=== PATIENT | male | born 1950 | race Hispanic/Latino ===

== ENCOUNTER 2016-06-07 15:55 | Emergency (ER) | payer MEDICARE, OTHER ==
[2016-06-07 15:56] VITALS: BMI 32.1
[2016-06-07 17:47] LABS: BASO % 0.3 % (0.0-2.0); EOS % 0.1 % (0.0-4.0); HEMATOCRIT 42.9 % (35.0-51.0); LYMPH # 0.5 K/uL (1.0-4.3); LYMPH % 8.5 % (20.0-40.0); MEAN CELL VOLUME 86.8 fL (80.0-94.0); MEAN CORPUSCULAR HEMOGLOBIN 29.1 pg (27.0-31.0); MEAN CORPUSCULAR HGB CONC 33.5 g/dL (33.0-37.0); MEAN PLATELET VOLUME 8.6 fL (7.2-11.7); MONO # 0.3 K/uL (0.0-0.8); MONO % 4.9 % (0.0-10.0); PLATELET COUNT 274 K/uL (130-400); RED CELL DISTRIBUTION WIDTH 14.3 % (11.5-14.5); WHITE BLOOD COUNT 6.3 K/uL (4.8-10.8)
[2016-06-07 17:55] LABS: INR 1.2
--- NOTE | 2016-06-07 18:01 | CT ---
PROCEDURE: CT HEAD WITHOUT CONTRAST. HISTORY: dizzy COMPARISON: None available. TECHNIQUE: Axial computed tomography images were obtained through the head/brain without intravenous contrast. Radiation dose: Total exam DLP = 906.0 mGy-cm. This CT exam was performed using one or more of the following dose reduction techniques: Automated exposure control, adjustment of the mA and/or kV according to patient size, and/or use of iterative reconstruction technique. FINDINGS: HEMORRHAGE: No intracranial hemorrhage. BRAIN: No mass effect or edema. No atrophy or chronic microvascular ischemic changes. VENTRICLES: Unremarkable. No hydrocephalus. CALVARIUM: Unremarkable. PARANASAL SINUSES: Unremarkable as visualized. No significant inflammatory changes. MASTOID AIR CELLS: Unremarkable as visualized. No inflammatory changes. OTHER FINDINGS: None. IMPRESSION: No evidence of acute intracranial hemorrhage territorial infarct mass effect or midline shift.
--- NOTE | 2016-06-07 18:23 | RAD ---
HISTORY: productive cough COMPARISON: No prior. TECHNIQUE: Chest PA and lateral FINDINGS: LUNGS: No active pulmonary disease. PLEURA: No significant pleural effusion identified. No pneumothorax apparent. CARDIOVASCULAR: No radiographic findings to suggest acute or significant cardiovascular disease. OSSEOUS STRUCTURES: No significant abnormalities. VISUALIZED UPPER ABDOMEN: Normal. OTHER FINDINGS: None. IMPRESSION: No active disease.
[2016-06-07 18:26] LABS: CHLORIDE 101 mmol/L (98-107); POTASSIUM 4.1 mmol/L (3.6-5.2); SODIUM 137 mmol/L (132-148)
[2016-06-07 18:28] LABS: ALB/GLOB RATIO 1.1 (1.0-2.1); ALKALINE PHOSPHATASE 49 U/L (38-126); AST/SGOT 44 U/L (17-59); BLOOD UREA NITROGEN 12 mg/dL (9-20); CARBON DIOXIDE 24 mmol/L (22-30); GFR AFRICAN-AMERICAN > 60; TOTAL PROTEIN 7.7 g/dL (6.3-8.3)
[2016-06-07 18:29] LABS: ALT/SGPT 35 U/L (21-72); GLUCOSE,RANDOM 105 mg/dL (75-110)
--- NOTE | 2016-06-07 18:29 | C.PDOC ---
History Of Present Illness <Cami Zhao - Last Filed: 06/07/16 19:11> <Stanley Garcia - Last Filed: 06/07/16 19:23> 66-year-old male, presents to the emergency department with complaints of headache, cough and nasal congestion x2 days. Last night, patient had an episode of feeling "unsteady on feet." States he was unable to sleep, and was concerned, resulting in him coming to the ED for evaluation. Denies changes in vision, nausea/vomiting, change in speech, or any other associated symptoms. No other complaints at this time. (Cami Zhao) History Per: Patient History/Exam Limitations: no limitations <Cami Zhao - Last Filed: 06/07/16 19:11> <Stanley Garcia - Last Filed: 06/07/16 19:23> Time Seen by Provider: 06/07/16 16:57 Chief Complaint (Nursing): Headache Past Medical History Reviewed: Historical Data, Nursing Documentation, Vital Signs - Medical History PMH: Denies: Chronic Kidney Disease Surgical History: Tonsillectomy Family History: States: Unknown Family Hx - Social History Hx Alcohol Use: No Hx Substance Use: No - Immunization History Hx Tetanus Toxoid Vaccination: Yes Hx Influenza Vaccination: Yes Hx Pneumococcal Vaccination: Yes <Cami Zhao - Last Filed: 06/07/16 19:11> Review Of Systems Except As Marked, All Systems Reviewed And Found Negative. Constitutional: Negative for: Fever, Chills ENT: Positive for: Nose Congestion Respiratory: Positive for: Cough, Sputum. Negative for: Shortness of Breath Gastrointestinal: Negative for: Vomiting Musculoskeletal: Negative for: Back Pain Skin: Negative for: Rash Neurological: Positive for: Headache, Dizziness. Negative for: Weakness, Numbness <Cami Zhao - Last Filed: 06/07/16 19:11> Physical Exam - Physical Exam Appears: Non-toxic, No Acute Distress Skin: Warm, Dry, No Rash Head: Atraumatic, Normacephalic Eye(s): bilateral: Normal Inspection, PERRL, EOMI Nose: Normal Throat: Normal Neck: Normal Cardiovascular: Rhythm Regular Respiratory: Normal Breath Sounds Gastrointestinal/Abdominal: Normal Exam Back: Normal Inspection Extremity: Normal ROM <Cami Zhao - Last Filed: 06/07/16 19:11> ED Course And Treatment - Laboratory Results Result Diagrams: 06/07/16 17:38 06/07/16 17:38 O2 Sat by Pulse Oximetry: 95 - Radiology CXR: Viewed By Me, Read By Radiologist CXR Interpretation: Yes: No Acute Disease - CT Scan/US CT HEAD Other Rad Studies (CT/US): Read By Radiologist, Radiology Report Reviewed CT/US Interpretation: Accession No. : [id number]. Patient Name / ID : SUSIE MEJIA / [id number]. Exam Date : 06/07/2016 17:44:15 ( Approved ). Study Comment : Sex / Age : M / 66Y. Creator : Alo August. Dictator : Alo August. [id number] Administrator : Hat Forming Machine Feeder : Alo August. Approver2 : Report Date : 06/07/2016 17:59:53. My Comment : . PROCEDURE: CT HEAD WITHOUT CONTRAST. HISTORY: dizzy. COMPARISON: None available. TECHNIQUE: Axial computed tomography images were obtained through the head/brain without intravenous contrast. Radiation dose: Total exam DLP = 906.0 mGy-cm. This CT exam was performed using one or more of the following dose reduction techniques : Automated exposure control, adjustment of the mA and/or kV according to patient size, and/or use of iterative reconstruction technique. FINDINGS: HEMORRHAGE: No intracranial hemorrhage. BRAIN: No mass effect or edema. No atrophy or chronic microvascular ischemic changes. VENTRICLES: Unremarkable. No hydrocephalus. CALVARIUM: Unremarkable. PARANASAL SINUSES: Unremarkable as visualized. No significant inflammatory changes. MASTOID AIR CELLS: Unremarkable as visualized. No inflammatory changes. OTHER FINDINGS: None. IMPRESSION: No evidence of acute intracranial hemorrhage territorial infarct mass effect or midline shift. <Cami Zhao - Last Filed: 06/07/16 19:11> - Laboratory Results Result Diagrams: 06/07/16 17:38 06/07/16 17:38 ECG: Interpreted By Me, Viewed By Me ECG Rhythm: Sinus Rhythm (103), R BBB, Nonspecific Changes Pulse Ox Interpretation: Normal - Radiology CXR: Interpreted by Me, Viewed By Me CXR Interpretation: Yes: Other (? rll infiltrate). No: Fracture, Pnemothorax <Stanley Garcia - Last Filed: 06/07/16 19:23> Disposition - Disposition Disposition Time: 19:11 <Cami Zhao - Last Filed: 06/07/16 19:11> <Stanley Garcia - Last Filed: 06/07/16 19:23> - Disposition Condition: FAIR - Clinical Impression Clinical Impression: Headache, Dizziness - Scribe Statement The provider has reviewed the documentation as recorded by the Scribe <Cami Zhao - Last Filed: 06/07/16 19:11> <Stanley Garcia - Last Filed: 06/07/16 19:23> - Scribe Statement Barron Zambrano All medical record entries made by the Scribe were at my direction and personally dictated by me. I have reviewed the chart and agree that the record accurately reflects my personal performance of the history, physical exam, medical decision making, and the department course for this patient. I have also personally directed, reviewed, and agree with the discharge instructions and disposition. (Cami Zhao) Physician Patient Turnover Patient Signed Over To: Stanley Garcia Handoff Comments: Troponin, dspo <Cami Zhao - Last Filed: 06/07/16 19:11>
[2016-06-07 19:37] LABS: NEUTROPHIL 85 % (50-75); TOTAL CELLS COUNTED 100
[2016-06-07 19:45] LABS: URINE BACTERIA RARE (<OCC); URINE BILIRUBIN NEGATIVE (NEGATIVE); URINE BLOOD NEGATIVE (NEGATIVE); URINE GLUCOSE (UA) NORMAL (Normal); URINE KETONE NEGATIVE (NEGATIVE); URINE LEUKOCYTE ESTERASE NEG Leu/uL (Negative); URINE PROTEIN 1+ mg/dL (NEGATIVE); URINE UROBILINOGEN NORMAL mg/dL (0.2-1.0); WBC URINE 5 /hpf (0-5)
[2016-06-07 19:46] LABS: URINE COLOR YELLOW (YELLOW)
[2016-06-07 19:47] LABS: RBC URINE 3 /hpf (0-3)
[2016-06-07 20:46] VITALS: BP 132/84; PULSE 82; RESP 20; TEMP 98; O2SAT 98
--- NOTE | 2016-06-12 09:00 | CARD ---
APPROVED REPORT EKG Measurement Heart [id number] <Conclusion> Sinus tachycardiA Borderline ECG
== END 2016-06-07 20:45 | disposition home or self-care (01) ==
LOC: C.ER 15:55
DX: R51 Headache (principal); R42 Dizziness and giddiness
CPT/HCPCS: 70450; 71020; 80053; 81001; 82550; 82553; 84484; 85025; 85610; 85730; 96374; 96375; 99285; J1885; J2405

== ENCOUNTER 2016-09-14 19:30 | Emergency (ER) | payer MEDICARE ==
[2016-09-14 19:30] VITALS: BMI 32.1
--- NOTE | 2016-09-14 20:08 | C.PDOC ---
History Of Present Illness 66 year old male presents to the ED with complaints of "room-spinning" dizziness with some nausea and vomiting for the past few days that has been worsening today. Patient states upon arrival to ED he is feeling better. Patient denies headache, chest pain, or other complaints at this time. Chief Complaint (Nursing): Dizziness/Lightheaded History Per: Patient History/Exam Limitations: no limitations Onset/Duration Of Symptoms: Days, Worse Since (earlier today ) Current Symptoms Are (Timing): Better Fall Associated With With Symptoms: No Recent travel outside of the [place]: No Past Medical History Reviewed: Historical Data, Nursing Documentation, Vital Signs Vital Signs: Last Vital Signs Temp 98.2 F 09/14/16 19:49 Pulse 96 H 09/14/16 23:36 Resp 17 09/14/16 23:36 BP 122/69 09/14/16 23:36 Pulse Ox 95 09/14/16 23:36 Surgical History: Tonsillectomy - [facility] Procedures ENDOSC POLYPECTOMY OF LG INTEST (11/03/14) Family History: States: Unknown Family Hx - Social History Hx Alcohol Use: No Hx Substance Use: No - Immunization History Hx Tetanus Toxoid Vaccination: Yes Hx Influenza Vaccination: Yes Hx Pneumococcal Vaccination: Yes Review Of Systems Constitutional: Negative for: Fever, Chills Cardiovascular: Negative for: Chest Pain Respiratory: Negative for: Shortness of Breath Gastrointestinal: Positive for: Nausea, Vomiting. Negative for: Abdominal Pain , Diarrhea Neurological: Positive for: Dizziness. Negative for: Headache Physical Exam - Physical Exam Appears: Non-toxic, No Acute Distress Skin: Warm, Dry Head: Atraumatic Eye(s): bilateral: Normal Inspection, PERRL, EOMI Oral Mucosa: Moist Neck: Supple Cardiovascular: Rhythm Regular Respiratory: Normal Breath Sounds, No Rhonchi, No Wheezing Gastrointestinal/Abdominal: Soft, No Tenderness, No Distention, No Guarding, No Rebound Extremity: Normal ROM, No Tenderness Neurological/Psych: Oriented x3, Normal Speech, Normal Cognition, Normal Cranial Nerves, Normal Motor, Normal Sensation ED Course And Treatment - Laboratory Results Result Diagrams: 09/14/16 19:59 09/14/16 19:59 ECG: Interpreted By Me, Viewed By Me ECG Rhythm: Sinus Rhythm ECG Interpretation: No Acute Changes Interpretation Of ECG: NSR, possible LVH, borderline tracings. Rate From EC O2 Sat by Pulse Oximetry: 98 (room air ) Pulse Ox Interpretation: Normal Disposition Counseled Patient/Family Regarding: Diagnosis - Disposition Referrals: [facility] [Outside] Disposition: HOME/ ROUTINE Disposition Time: 00:20 Condition: STABLE Prescriptions: Meclizine [Meclizine*] 25 mg PO Q6 #30 tab Instructions: Vertigo (ED) Forms: [facility] (Monegasque) - POA Present On Arrival: None - Clinical Impression Clinical Impression: Vertigo - Scribe Statement The provider has reviewed the documentation as recorded by the Scribe Hetal Herring All medical record entries made by the Roneyibender were at my direction and personally dictated by me. I have reviewed the chart and agree that the record accurately reflects my personal performance of the history, physical exam, medical decision making, and the department course for this patient. I have also personally directed, reviewed, and agree with the discharge instructions and disposition.
[2016-09-14 20:28] LABS: BASO % 0.4 % (0.0-2.0); EOS # 0.2 K/uL (0.0-0.7); EOS % 1.4 % (0.0-4.0); HEMOGLOBIN 11.9 g/dL (12.0-18.0); LYMPH # 1.8 K/uL (1.0-4.3); LYMPH % 17.1 % (20.0-40.0); MEAN CELL VOLUME 82.8 fL (80.0-94.0); MEAN CORPUSCULAR HEMOGLOBIN 27.8 pg (27.0-31.0); MEAN CORPUSCULAR HGB CONC 33.5 g/dL (33.0-37.0); MONO # 0.9 K/uL (0.0-0.8); MONO % 7.9 % (0.0-10.0); NEUT # 7.9 K/uL (1.8-7.0); NEUT % 73.2 % (50.0-75.0); RBC 4.3 Mil/uL (4.40-5.90); RED CELL DISTRIBUTION WIDTH 15.3 % (11.5-14.5); WHITE BLOOD COUNT 10.7 K/uL (4.8-10.8)
[2016-09-14 20:38] LABS: ALBUMIN 3.8 g/dL (3.5-5.0)
[2016-09-14 20:41] LABS: ALB/GLOB RATIO 0.9 (1.0-2.1); AST/SGOT 38 U/L (17-59); BLOOD UREA NITROGEN 17 mg/dL (9-20); GFR AFRICAN-AMERICAN > 60; GFR NON-AFRICAN AMERICAN > 60
[2016-09-14 20:42] LABS: ALT/SGPT 36 U/L (21-72)
--- NOTE | 2016-09-15 00:06 | CT ---
EXAM: CT Head Without Intravenous Contrast CLINICAL HISTORY: 66 years old, male; Pain; Headache TECHNIQUE: Axial computed tomography images of the head/brain without intravenous contrast. This CT exam was performed using one or more of the following dose reduction techniques: automated exposure control, adjustment of the mA and/or kV according to patient size, and/or use of iterative reconstruction technique. COMPARISON: No relevant prior studies available. FINDINGS: Brain: [id number] atrophy. No intracranial hemorrhage. No mass. Minimal decreased attenuation within periventricular white matter. No definite edema. Ventricles: No hydrocephalus. Bones/joints: No acute fracture. Soft tissues: Unremarkable. Sinuses: No acute sinusitis. Mastoid air cells: No mastoid effusion. Orbits: Unremarkable as visualized. IMPRESSION: 1. Nonspecific white matter changes. Acute infarction may be CT occult within first 24 hours. If a focal deficit persists, consider followup CT or MRI for further evaluation. 2. Incidental/non-acute findings are described above.
[2016-09-15 00:08] VITALS: PULSE 96
[2016-09-15 00:28] VITALS: BP 102/52; RESP 13; TEMP 98.1; O2SAT 95
== END 2016-09-15 00:33 | disposition home or self-care (01) ==
LOC: C.ER 19:30
DX: R42 Dizziness and giddiness (principal)

== ENCOUNTER 2016-10-04 02:41 | Emergency (ER) | payer MEDICARE ==
[2016-10-04 02:42] VITALS: BMI 32.1
[2016-10-04 03:09] VITALS: O2SAT 97
[2016-10-04] MEDS ORDERED: Sodium Chloride 0.9% 1,000 ML IV ONE (03:10)
[2016-10-04 03:43] LABS: BASO # 0.1 K/uL (0.0-0.2); BASO % 0.8 % (0.0-2.0); EOS % 0.4 % (0.0-4.0); HEMATOCRIT 31.7 % (35.0-51.0); LYMPH # 1.3 K/uL (1.0-4.3); LYMPH % 11.6 % (20.0-40.0); MEAN CORPUSCULAR HEMOGLOBIN 26.5 pg (27.0-31.0); MEAN CORPUSCULAR HGB CONC 32.8 g/dL (33.0-37.0); MEAN PLATELET VOLUME 8.4 fL (7.2-11.7); MONO # 0.7 K/uL (0.0-0.8); MONO % 6.8 % (0.0-10.0); RED CELL DISTRIBUTION WIDTH 16.1 % (11.5-14.5)
[2016-10-04 03:50] LABS: CHLORIDE 103 mmol/L (98-107)
[2016-10-04 03:51] LABS: SODIUM 136 mmol/L (132-148)
[2016-10-04 03:53] LABS: ALB/GLOB RATIO 0.8 (1.0-2.1); AMYLASE 52 U/L (30-110); AST/SGOT 26 U/L (17-59); BILIRUBIN,TOTAL 0.9 mg/dL (0.2-1.3); BLOOD UREA NITROGEN 15 mg/dL (9-20); CARBON DIOXIDE 21 mmol/L (22-30); GFR AFRICAN-AMERICAN > 60
[2016-10-04 03:54] LABS: ALCOHOL SERUM < 10 mg/dl (0-10); ALKALINE PHOSPHATASE 53 U/L (38-126); ALT/SGPT 34 U/L (21-72); CALCIUM 8.4 mg/dl (8.6-10.4); GLUCOSE,RANDOM 98 mg/dL (75-110)
[2016-10-04] MEDS ORDERED: Iohexol 350mg/ml 100 ML ONE (04:09)
--- NOTE | 2016-10-04 05:29 | CT ---
EXAM: CT Abdomen and Pelvis With Intravenous Contrast EXAM DATE/TIME: 10/04/2016 3:11 AM CLINICAL HISTORY: 66 years old, male; Pain; Abdominal pain TECHNIQUE: Axial computed tomography images of the abdomen and pelvis with intravenous contrast. All CT scans at this facility use one or more dose reduction techniques, viz.: automated exposure control; ma/kV adjustment per patient size (including targeted exams where dose is matched to indication; i.e. head); or iterative reconstruction technique. Coronal and sagittal reformatted images were created and reviewed. CONTRAST: 100 mL of [id number] administered intravenously. COMPARISON: No relevant prior studies available. FINDINGS: There are multiple small round hypoattenuating hepatic and renal lesions some of which represent cysts and some of which are too small to accurately characterize. Trace bilateral perinephric stranding The spleen is prominent. The pancreas is normal. Probable small amount of sludge or stones layering in the gallbladder. Sigmoid diverticulosis. Large amount of stool within the proximal right colon. A normal appendix is identified coronal images 44 - 62, axial image 136. There is a small umbilical fat hernia. Minimal bibasilar atelectasis. IMPRESSION: Large amount of stool in proximal right colon. Prominent spleen. Possible small amount of sludge or stones in the gallbladder.
--- NOTE | 2016-10-04 05:33 | C.PDOC ---
History Of Present Illness 66 yo male c/o abdominal pain for 2 days. "it might be gas". Notes that when he moves pain increases or at night. Not changed with food. (+) Notes normal BM today. No n/v diarhhea. No fever. No symptoms. Time Seen by Provider: 10/04/16 03:05 Chief Complaint (Nursing): Abdominal Pain History Per: Patient History/Exam Limitations: no limitations Onset/Duration Of Symptoms: Days Current Symptoms Are (Timing): Still Present Location Of Pain/Discomfort: Diffuse Past Medical History Vital Signs: Last Vital Signs Temp 98.6 F 10/04/16 04:50 Pulse 83 10/04/16 04:50 Resp 16 10/04/16 04:50 BP 105/41 L 10/04/16 04:50 Pulse Ox 97 10/04/16 04:50 - Medical History PMH: Denies: Chronic Kidney Disease Surgical History: Tonsillectomy - [facility] Procedures ENDOSC POLYPECTOMY OF LG INTEST (11/03/14) Family History: States: Unknown Family Hx - Social History Hx Alcohol Use: No Hx Substance Use: No - Immunization History Hx Tetanus Toxoid Vaccination: Yes Hx Influenza Vaccination: Yes Hx Pneumococcal Vaccination: Yes Review Of Systems Except As Marked, All Systems Reviewed And Found Negative. Gastrointestinal: Positive for: Abdominal Pain Physical Exam - Physical Exam Appears: Well, Non-toxic, No Acute Distress, Unkempt Skin: Normal Color, Warm, Dry Head: Atraumatic, Normacephalic Eye(s): bilateral: Normal Inspection, EOMI Nose: Normal Oral Mucosa: Moist Neck: Normal, Normal ROM, Supple Chest: Symmetrical Cardiovascular: Rhythm Regular Respiratory: Normal Breath Sounds Gastrointestinal/Abdominal: Soft, Tenderness (diffuse) Back: Normal Inspection, No CVA Tenderness, No Vertebral Tenderness Extremity: Normal ROM Neurological/Psych: Oriented x3, Normal Speech, Normal Motor, Normal Sensation ED Course And Treatment - Laboratory Results Result Diagrams: 10/04/16 03:40 10/04/16 03:40 O2 Sat by Pulse Oximetry: 97 - CT Scan/US ABd pelvis Other Rad Studies (CT/US): Read By Radiologist, Radiology Report Reviewed CT/US Interpretation: EXAM: CT Abdomen and Pelvis With Intravenous Contrast. EXAM DATE/TIME: 10/04/2016 3:11 AM. CLINICAL HISTORY: 66 years old, male; Pain ; Abdominal pain. TECHNIQUE: Axial computed tomography images of the abdomen and pelvis with intravenous contrast. All CT. scans at this facility use one or more dose reduction techniques, viz.: automated exposure control;. ma/kV adjustment per patient size (including targeted exams where dose is matched to indication; i.e. head); or iterative reconstruction technique. Coronal and sagittal reformatted images were created and reviewed. CONTRAST: 100 mL of [id number] administered intravenously. COMPARISON: No relevant prior studies available. FINDINGS: There are multiple small round hypoattenuating hepatic and renal lesions some of which represent. cysts and some of which are too small to accurately characterize. Trace bilateral perinephric stranding. The spleen is prominent. The pancreas is normal. Probable small amount of sludge or stones layering in the gallbladder. Sigmoid diverticulosis. Large amount of stool within the proximal right colon. A normal appendix is identified coronal images 44 - 62, axial image 136. There is a small umbilical fat hernia. Minimal bibasilar atelectasis. IMPRESSION: Large amount of stool in proximal right colon. Prominent spleen. Possible small amount of sludge or stones in the gallbladder Progress Note: Toradol and pepcid ordered. On re-evaluation, patient is resting comfortably, abdomen remains soft, and patient is tolerating PO. Patient feels comfortable going home Disposition - Disposition Disposition: HOME/ ROUTINE Disposition Time: 05:35 Condition: STABLE Additional Instructions: Follow up with your PMD in 1-2 days. Return to ER if symptoms persist or worsen. Prescriptions: Polyethylene Glycol 3350 [Miralax] 17 gm PO DAILY #85 gm Simethicone [Mylicon Chew Tab] 80 mg PO TID PRN #10 ctb PRN Reason: Gi Distress Instructions: Acute Abdominal Pain (ED) Forms: [employer] (Hungarian) - Clinical Impression Clinical Impression: Abdominal pain, Constipation
[2016-10-04 05:52] VITALS: BP 132/74; PULSE 78; RESP 20; TEMP 98.2
== END 2016-10-04 05:50 | disposition home or self-care (01) ==
LOC: C.ER 02:41
DX: K59.00 Constipation, unspecified (principal)
CPT/HCPCS: 74177; 80053; 82150; 83690; 85025; 96374; 96375; 99285; G0480; J1885; J7040; Q9967

== ENCOUNTER 2016-10-05 07:45 | Emergency (ER) | payer MEDICARE ==
[2016-10-05 07:55] VITALS: BMI 29.9
[2016-10-05 07:58] VITALS: RESP 18
[2016-10-05] MEDS ORDERED: Lidocaine 5% Patch TD STA (08:49)
[2016-10-05] MEDS ORDERED: Lidocaine 5% Patch TD ONE (09:00)
--- NOTE | 2016-10-05 09:45 | C.PDOC ---
History Of Present Illness 66 y/o M p/w back pain x 1 week. Patient was in this ED last night with abdominal pain and this same back pain. He underwent CT and was discharged with constipation. He took his prescribed medication and states that his abdominal pain has resolved. He states that his back pain is worse, starts at the L flank and wraps around the L to the R flank. Pain is constant, worse with movement and position, sharp. He denies trauma or injury. Denies numbness, motor weakness , urinary or bowel incontinence or retention. Denies dysuria. Time Seen by Provider: 10/05/16 08:30 Chief Complaint (Nursing): Back Pain Past Medical History Vital Signs: Last Vital Signs Temp 97.6 F 10/05/16 07:55 Pulse 99 H 10/05/16 07:55 Resp 18 10/05/16 07:55 BP 139/66 10/05/16 07:55 Pulse Ox 97 10/05/16 10:27 - Medical History PMH: Denies: Chronic Kidney Disease Surgical History: Tonsillectomy - [facility] Procedures ENDOSC POLYPECTOMY OF LG INTEST (11/03/14) Family History: States: Unknown Family Hx - Social History Hx Alcohol Use: No Hx Substance Use: No - Immunization History Hx Tetanus Toxoid Vaccination: Yes Hx Influenza Vaccination: Yes Hx Pneumococcal Vaccination: Yes Review Of Systems Except As Marked, All Systems Reviewed And Found Negative. Constitutional: Negative for: Fever Cardiovascular: Negative for: Chest Pain Physical Exam - Physical Exam Additional Physical Exam Comments: Constitutional: No acute distress. Ambulates with cane. Head: Normocephalic. Atraumatic. Eyes: PERRL. ENT: Moist mucous membranes. Neck: Supple. Cardiovascular: Regular rate. Radial pulse 2+ bilaterally. Chest: No tenderness. Respiratory: Clear to auscultation bilaterally. GI: Soft. Nontender. Nondistended. Back: No midline tenderness. No CVA tenderness. Came to ED with back brace on. Musculoskeletal: No tenderness or swelling of extremities. Skin: No rash. Neurologic: Alert, no focal deficit. Sensation to light touch intact in bilateral legs and saddle area. Motor intact bilaterally. ED Course And Treatment O2 Sat by Pulse Oximetry: 97 Medical Decision Making Medical Decision Making: Had in house radiologist review CT from last night. No obvious disc herniation and no fractures. +Degenerative disc disease in lower spine. Will treat patient with Lidocaine patch and Flexeril, patient took Aleve at home. Will send urine to rule out infection. Otherwise, supportive care, f/u PMD , no indication for further imaging at this time. Disposition - Disposition Referrals: Lori Ovalles MD [Medical Doctor] - Disposition: HOME/ ROUTINE Disposition Time: 11:05 Condition: STABLE Prescriptions: Cyclobenzaprine [Cyclobenzaprine HCl] 10 mg PO Q8H #12 tab Lidocaine 5% [Lidoderm] 1 patch TD ONCE #5 patch Instructions: Back Pain (ED) Forms: [facility] (Uzbek) - Clinical Impression Clinical Impression: Low back pain
[2016-10-05 11:00] LABS: RBC URINE 2 /hpf (0-3); URINE BILIRUBIN NEGATIVE (NEGATIVE); URINE BLOOD NEGATIVE (NEGATIVE); URINE COLOR Amber (YELLOW); URINE GLUCOSE (UA) NORMAL (Normal); URINE KETONE 2+ mg/dL (NEGATIVE); URINE LEUKOCYTE ESTERASE NEG Leu/uL (Negative); URINE PROTEIN 1+ mg/dL (NEGATIVE); URINE UROBILINOGEN NORMAL mg/dL (0.2-1.0); WBC URINE 2 /hpf (0-5)
[2016-10-05 11:16] VITALS: BP 115/56; PULSE 88; TEMP 98.4; O2SAT 98
== END 2016-10-05 11:17 | disposition home or self-care (01) ==
LOC: C.ER 07:45
DX: M54.5 Low back pain (principal)

== ENCOUNTER 2016-10-10 07:59 | Inpatient (IN) | payer MEDICARE ==
[2016-10-10 08:22] VITALS: BMI 28.1
[2016-10-10] MEDS ORDERED: Sodium Chloride 0.9% 500 ML IV ONE ×2 (08:23→09:08)
--- NOTE | 2016-10-10 08:27 | C.PDOC ---
History Of Present Illness Patient is a 66 y/o M presenting with complaint of "being sick." When pressed patient reports that he feels lightheadedness that started this morning. He is also complaining of some LLQ pain. He reports that he feels confused but admits that he is AAOx3. He denies fever, vomiting/nausea, constipation/ diarrhea, chest pain, shortness of breath, headache or trauma. PMD: Dr. Ovalles Time Seen by Provider: 10/10/16 08:04 Chief Complaint (Nursing): Male Genitourinary Past Medical History Vital Signs: Last Vital Signs Temp 97.9 F 10/10/16 08:02 Pulse 99 H 10/10/16 13:46 Resp 20 10/10/16 13:46 BP 130/63 10/10/16 13:46 Pulse Ox 100 10/10/16 13:46 - Medical History PMH: Denies: Chronic Kidney Disease Surgical History: Tonsillectomy - [facility] Procedures ENDOSC POLYPECTOMY OF LG INTEST (11/03/14) Family History: States: Unknown Family Hx - Social History Hx Alcohol Use: No Hx Substance Use: No - Immunization History Hx Tetanus Toxoid Vaccination: Yes Hx Influenza Vaccination: Yes Hx Pneumococcal Vaccination: Yes Review Of Systems Constitutional: Positive for: Malaise. Negative for: Fever, Chills Cardiovascular: Positive for: Light Headedness. Negative for: Chest Pain, Palpitations, Orthopnea Respiratory: Negative for: Cough, Shortness of Breath, SOB with Excertion, Wheezing Gastrointestinal: Positive for: Abdominal Pain (LLQ). Negative for: Nausea, Vomiting, Diarrhea, Constipation Genitourinary: Negative for: Dysuria, Frequency, Incontinence Musculoskeletal: Negative for: Neck Pain Skin: Negative for: Rash Neurological: Positive for: Confusion, Dizziness. Negative for: Weakness, Numbness, Incoordination, Change in Speech, Altered Mental Status, Headache Physical Exam - Physical Exam Appears: Well, No Acute Distress (pale) Skin: Normal Color, Warm, Dry Head: Atraumatic, Normacephalic Eye(s): bilateral: Normal Inspection, PERRL, EOMI Chest: Symmetrical Cardiovascular: Rhythm Regular Respiratory: Normal Breath Sounds Gastrointestinal/Abdominal: Soft, Tenderness (LLQ), No Distention Back: Normal Inspection Extremity: Normal ROM Neurological/Psych: Oriented x3, Normal Cranial Nerves, Normal Motor, Normal Sensation Gait: Steady ED Course And Treatment - Laboratory Results Result Diagrams: 10/10/16 08:51 10/10/16 08:51 O2 Sat by Pulse Oximetry: 95 - Other Rad CXR X-Ray: Viewed By Me, Read By Radiologist Interpretation: HISTORY: lightheaded. COMPARISON: 06/07/2016. FINDINGS: LUNGS: No active pulmonary disease. PLEURA: No significant pleural effusion identified, no pneumothorax apparent. CARDIOVASCULAR: Normal. OSSEOUS STRUCTURES: No significant abnormalities. VISUALIZED UPPER ABDOMEN: Normal. OTHER FINDINGS: None. IMPRESSION: No active disease. - CT Scan/US CT - Head Other Rad Studies (CT/US): Read By Radiologist, Radiology Report Reviewed CT/US Interpretation: PROCEDURE: CT HEAD WITHOUT CONTRAST. HISTORY: confusion. COMPARISON: 09/14/2016. TECHNIQUE: Axial computed tomography images were obtained through the head/brain without intravenous contrast. Radiation dose: Total exam DLP = 89.88 mGy-cm. This CT exam was performed using one or more of the following dose reduction techniques: Automated exposure control, adjustment of the mA and/or kV according to patient size, and/ or use of iterative reconstruction technique. FINDINGS: HEMORRHAGE: No intracranial hemorrhage. BRAIN: No mass effect or edema. Mild diffuse age- appropriate cerebral atrophy. Mild periventricular white matter lucency consistent with chronic microvascular ischemic change. VENTRICLES: Unremarkable. No hydrocephalus. CALVARIUM: Unremarkable. PARANASAL SINUSES: Unremarkable as visualized. No significant inflammatory changes. MASTOID AIR CELLS: Unremarkable as visualized. No inflammatory changes. OTHER FINDINGS: None. IMPRESSION: No intracranial mass, hemorrhage or evidence of acute infarct. Age related atrophy and chronic white matter ischemic change. No interval change compared to 09/14/2016. CT Abdomen and Pelvis with contrast Other Rad Studies (CT/US): Read By Radiologist, Radiology Report Reviewed CT/US Interpretation: PROCEDURE: CT Abdomen and Pelvis with contrast. HISTORY : LLQ pain. COMPARISON: CT of the abdomen and pelvis with IV contrast performed 10/04/16. TECHNIQUE: Contrast dose: 100 cc Visipaque 320. Radiation dose: Total exam DLP = 731.55 mGy-cm. This CT exam was performed using one or more of the following dose reduction techniques: Automated exposure control, adjustment of the mA and/or kV according to patient size, and/or use of iterative reconstruction technique. FINDINGS: LOWER THORAX: Mild bibasilar atelectasis. No visible pleural effusion or pneumothorax. Small hiatal hernia/ distal esophageal wall thickening. LIVER: Multiple round hypo attenuating hepatic lesions several of which appear consistent with cysts and others which are too small to characterize. GALLBLADDER AND BILE DUCTS: Sludge or gallstones within the gallbladder. PANCREAS: Unremarkable. SPLEEN: Splenomegaly. ADRENALS: Unremarkable. KIDNEYS AND URETERS: 2 hypo attenuating right renal lesions, possibly cysts. No hydronephrosis. No obstructing calculus. Bilateral kidneys enhance symmetrically. VASCULATURE: No aortic aneurysm. BOWEL: Stomach is nondistended. Lack of oral contrast limits evaluation for bowel pathology. Bowel loops appear within normal limits of caliber without evidence of obstruction. Diverticulosis without CT evidence of acute diverticulitis. APPENDIX: The appendix appears within normal limits of caliber. No secondary signs of acute appendicitis. PERITONEUM: No significant free fluid. No definite free air. LYMPH NODES: No bulky adenopathy identified. BLADDER: Unremarkable. REPRODUCTIVE: The prostate gland measures approximately 4.2 x 5.1 cm. BONES: Mild degenerative changes. OTHER FINDINGS: Interval development of 1.5 x 1.6 cm enhancing focus within the mid abdomen (series 3, image 113) ; surrounding inflammatory changes are noted. This appears to communicate with an arcade branch of the SMA. Finding suspected to reflect mycotic aneurysm. Enlarged enhancing lymph node cannot be entirely excluded however is considered less likely. Tiny adjacent less hyperdense lymph nodes are evident. IMPRESSION: Interval development of 1.5 x 1.6 cm enhancing focus within the mid abdomen; surrounding inflammatory changes are noted. This appears to communicate with an arcade branch of the SMA. Finding suspected to reflect mycotic aneurysm. Enlarged enhancing lymph node cannot be entirely excluded however is considered less likely. Tiny adjacent less hyperdense lymph nodes are evident. Correlate clinically. Enlarged prostate gland. Recommend correlation with PSA. Diverticulosis without CT evidence of acute diverticulitis. Probable hepatic and right renal cysts. Additional too small to characterize hepatic and renal lesions. Sludge or gallstones within the gallbladder. Additional findings as above. Emergent findings discussed with Dr. Oliver on 10/10/16 at 1235pm. Medical Decision Making Medical Decision Making: [id number]:113. EKG shows sinus tachycardia at 116bpm with non-specific ST changes. CT head "No intracranial mass, hemorrhage or evidence of acute infarct. Age related atrophy and chronic white matter ischemic change. No interval change compared to 09/14/2016. Cxray negative Labs show mildly elevated wbc. Trop x 1 negative. Electrolytes grossly normal. Vitals improving after IVF CT shows "Interval development of 1.5 x 1.6 cm enhancing focus within the mid abdomen; surrounding inflammatory changes are noted. This appears to communicate with an arcade branch of the SMA. Finding suspected to reflect mycotic aneurysm. Enlarged enhancing lymph node cannot be entirely excluded however is considered less likely. Tiny adjacent less hyperdense lymph nodes are evident. Correlate clinically. Enlarged prostate gland. Recommend correlation with PSA. Diverticulosis without CT evidence of acute diverticulitis. Probable hepatic and right renal cysts. Additional too small to characterize hepatic and renal lesions. Sludge or gallstones within the gallbladder." Broad spectrum antibiotics ordered and blood cultures. Pain medication ordered. Dr. Farias on vascular consult. Admitted to Dr. Dloan Disposition - Disposition Disposition: HOSPITALIZED Disposition Time: 12:51 Condition: FAIR - Clinical Impression Clinical Impression: Mycotic aneurysm
[2016-10-10 09:00] LABS: BASO # 0.1 K/uL (0.0-0.2); BASO % 0.7 % (0.0-2.0); EOS # 0.1 K/uL (0.0-0.7); EOS % 0.9 % (0.0-4.0); HEMATOCRIT 37.6 % (35.0-51.0); LYMPH # 1.2 K/uL (1.0-4.3); LYMPH % 9.3 % (20.0-40.0); MEAN CELL VOLUME 80.6 fL (80.0-94.0); MEAN CORPUSCULAR HEMOGLOBIN 26.2 pg (27.0-31.0); MEAN CORPUSCULAR HGB CONC 32.5 g/dL (33.0-37.0); MEAN PLATELET VOLUME 8.6 fL (7.2-11.7); MONO # 0.5 K/uL (0.0-0.8); MONO % 3.9 % (0.0-10.0); PLATELET COUNT 409 K/uL (130-400); RED CELL DISTRIBUTION WIDTH 15.4 % (11.5-14.5); WHITE BLOOD COUNT 13.2 K/uL (4.8-10.8)
[2016-10-10 09:01] LABS: VENOUS BLOOD GAS BASE EXCESS -0.3 mmol/L (0.0-2.0); VENOUS BLOOD GAS PCO2 30 mmHg (40-60); VENOUS BLOOD PH 7.48 (7.32-7.43)
[2016-10-10 09:03] LABS: CHLORIDE 103 mmol/L (98-107); SODIUM 140 mmol/L (132-148)
[2016-10-10 09:05] LABS: GFR AFRICAN-AMERICAN > 60
[2016-10-10 09:06] LABS: ALB/GLOB RATIO 0.7 (1.0-2.1); ALKALINE PHOSPHATASE 66 U/L (38-126); ALT/SGPT 34 U/L (21-72); AST/SGOT 49 U/L (17-59); BLOOD UREA NITROGEN 21 mg/dL (9-20); CALCIUM 9.7 mg/dl (8.6-10.4); CARBON DIOXIDE 20 mmol/L (22-30); GLUCOSE,RANDOM 96 mg/dL (75-110); PHOSPHOROUS 2.6 mg/dL (2.5-4.5); TOTAL PROTEIN 8.7 g/dL (6.3-8.3)
[2016-10-10 09:07] LABS: MAGNESIUM 1.9 mg/dL (1.6-2.3)
[2016-10-10 09:08] LABS: INR 1.3
--- NOTE | 2016-10-10 09:13 | RAD ---
HISTORY: lightheaded COMPARISON: 06/07/2016 FINDINGS: LUNGS: No active pulmonary disease. PLEURA: No significant pleural effusion identified, no pneumothorax apparent. CARDIOVASCULAR: Normal. OSSEOUS STRUCTURES: No significant abnormalities. VISUALIZED UPPER ABDOMEN: Normal. OTHER FINDINGS: None. IMPRESSION: No active disease.
[2016-10-10 09:31] LABS: NEUTROPHIL 86 % (50-75); TOTAL CELLS COUNTED 100
--- NOTE | 2016-10-10 09:37 | CT ---
PROCEDURE: CT HEAD WITHOUT CONTRAST. HISTORY: confusion COMPARISON: 09/14/2016 TECHNIQUE: Axial computed tomography images were obtained through the head/brain without intravenous contrast. Radiation dose: Total exam DLP = 89.88 mGy-cm. This CT exam was performed using one or more of the following dose reduction techniques: Automated exposure control, adjustment of the mA and/or kV according to patient size, and/or use of iterative reconstruction technique. FINDINGS: HEMORRHAGE: No intracranial hemorrhage. BRAIN: No mass effect or edema. Mild diffuse age-appropriate cerebral atrophy. Mild periventricular white matter lucency consistent with chronic microvascular ischemic change. VENTRICLES: Unremarkable. No hydrocephalus. CALVARIUM: Unremarkable. PARANASAL SINUSES: Unremarkable as visualized. No significant inflammatory changes. MASTOID AIR CELLS: Unremarkable as visualized. No inflammatory changes. OTHER FINDINGS: None. IMPRESSION: No intracranial mass, hemorrhage or evidence of acute infarct. Age related atrophy and chronic white matter ischemic change. No interval change compared to 09/14/2016.
[2016-10-10 09:38] LABS: RBC URINE 6 /hpf (0-3); URINE BACTERIA RARE (<OCC); URINE BILIRUBIN NEGATIVE (NEGATIVE); URINE BLOOD NEGATIVE (NEGATIVE); URINE COLOR Amber (YELLOW); URINE GLUCOSE (UA) NORMAL (Normal); URINE KETONE TRACE mg/dL (NEGATIVE); URINE LEUKOCYTE ESTERASE NEG Leu/uL (Negative); URINE PROTEIN 1+ mg/dL (NEGATIVE); WBC URINE 1 /hpf (0-5)
[2016-10-10] MEDS ORDERED: Iodixanol 320 mg/ml 150 ml Bottle IV ONE (11:36)
[2016-10-10] MEDS ORDERED: Piperacillin/Tazobact 3.375 gm 100 ML IVPB STA (12:46)
--- NOTE | 2016-10-10 12:49 | CT ---
PROCEDURE: CT Abdomen and Pelvis with contrast HISTORY: LLQ pain COMPARISON: CT of the abdomen and pelvis with IV contrast performed 10/04/16 TECHNIQUE: Contrast dose: 100 cc Visipaque 320 Radiation dose: Total exam DLP = 731.55 mGy-cm. This CT exam was performed using one or more of the following dose reduction techniques: Automated exposure control, adjustment of the mA and/or kV according to patient size, and/or use of iterative reconstruction technique. FINDINGS: LOWER THORAX: Mild bibasilar atelectasis. No visible pleural effusion or pneumothorax. Small hiatal hernia/distal esophageal wall thickening. LIVER: Multiple round hypo attenuating hepatic lesions several of which appear consistent with cysts and others which are too small to characterize. GALLBLADDER AND BILE DUCTS: Sludge or gallstones within the gallbladder. PANCREAS: Unremarkable. SPLEEN: Splenomegaly. ADRENALS: Unremarkable. KIDNEYS AND URETERS: 2 hypo attenuating right renal lesions, possibly cysts. No hydronephrosis. No obstructing calculus. Bilateral kidneys enhance symmetrically. VASCULATURE: No aortic aneurysm. BOWEL: Stomach is nondistended. Lack of oral contrast limits evaluation for bowel pathology. Bowel loops appear within normal limits of caliber without evidence of obstruction. Diverticulosis without CT evidence of acute diverticulitis. APPENDIX: The appendix appears within normal limits of caliber. No secondary signs of acute appendicitis. PERITONEUM: No significant free fluid. No definite free air. LYMPH NODES: No bulky adenopathy identified. BLADDER: Unremarkable. REPRODUCTIVE: The prostate gland measures approximately 4.2 x 5.1 cm. BONES: Mild degenerative changes. OTHER FINDINGS: Interval development of 1.5 x 1.6 cm enhancing focus within the mid abdomen (series 3, image 113) ; surrounding inflammatory changes are noted. This appears to communicate with an arcade branch of the SMA. Finding suspected to reflect mycotic aneurysm. Enlarged enhancing lymph node cannot be entirely excluded however is considered less likely. Tiny adjacent less hyperdense lymph nodes are evident. IMPRESSION: Interval development of 1.5 x 1.6 cm enhancing focus within the mid abdomen; surrounding inflammatory changes are noted. This appears to communicate with an arcade branch of the SMA. Finding suspected to reflect mycotic aneurysm. Enlarged enhancing lymph node cannot be entirely excluded however is considered less likely. Tiny adjacent less hyperdense lymph nodes are evident. Correlate clinically. Enlarged prostate gland. Recommend correlation with PSA. Diverticulosis without CT evidence of acute diverticulitis. Probable hepatic and right renal cysts. Additional too small to characterize hepatic and renal lesions. Sludge or gallstones within the gallbladder. Additional findings as above. Emergent findings discussed with Dr. Oliver on 10/10/16 at 1235pm.
[2016-10-10] MEDS ORDERED: Morphine 4 MG/ML VIAL ONE (13:42)
[2016-10-10] MEDS ORDERED: Piperacillin/Tazobact 3.375 gm 100 ML IVPB ONE (13:42)
[2016-10-10] MEDS ORDERED: Midazolam 2 MG/2 ML VIAL ONE (15:03)
[2016-10-10] MEDS ORDERED: Lidocaine 2% Inj (20ml) ONE (15:05)
[2016-10-10] MEDS ORDERED: Iodixanol 320 MG/ML 100 ML BOTTLE IV ONE (15:07)
[2016-10-10] MEDS ORDERED: Iodixanol 320 MG/ML 200 ML BOTTLE IV ONE (15:07)
--- NOTE | 2016-10-10 15:10 | CP.PCM.HP ---
<Rahel Roman - Last Filed: 10/10/16 15:33> History of Present Illness - History of Present Illness History of Present Illness: HPI: Patient is a 66 y/o M with PMH arthritis and vertigo who presents to the ED with mid lower abdominal and low back pain for the past one month. Patient states the pain is gradual onset and gets worse with movement or standing. Pain is severe enough at night to disrupt his sleep. The pain is described as sharp in quality and 10/10 in pain scale. The pain is alleviated with sitting or lying down and takes about 10 minutes to feel relief. He never experienced this previously. He reports significant weight loss of 40 lbs in the past few months without any diet or exercise but feels this is 2/2 loss of appetite. Patient reports N/V. He states the nausea would occur any time after eating small amount of food including barley bread with cheese. Pt also reports chills and occasional cold sweats. He also admits to dry mouth although he drinks large volume of water. Denies SOB/CP, palpitations, fever, MARIE, changes in vision, ringing in ears, cough, diarrhea, constipation, blood in stool, change in urination. 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 Allergies: NKDA, seasonal Present on Admission - Present on Admission Any Indicators Present on Admission: No Review of Systems - Review of Systems All systems: reviewed and no additional remarkable complaints except (as per HPI ) Past Patient History - Infectious Disease Hx of Infectious Diseases: None - Past Medical History & Family History Past Medical History?: Yes - Past Social History Smoking Status: Never Smoked - CARDIAC Hx Cardiac Disorders: No - PULMONARY Hx Respiratory Disorders: No - NEUROLOGICAL Hx Neurological Disorder: Yes Hx Dizziness: Yes Hx Vertigo: Yes - HEENT Hx HEENT Problems: Yes (SEASONAL ALLERGIES) - RENAL Hx Chronic Kidney Disease: No - ENDOCRINE/METABOLIC Hx Endocrine Disorders: No - HEMATOLOGICAL/ONCOLOGICAL Hx Blood Disorders: No - INTEGUMENTARY Hx Dermatological Problems: No - MUSCULOSKELETAL/RHEUMATOLOGICAL Hx Musculoskeletal Disorders: Yes Hx Back Pain: Yes - GASTROINTESTINAL Hx Gastrointestinal Disorders: Yes (SEE COMMENT) Hx Constipation: Yes Hx Diverticulitis: No (DIVERTICULOSIS) Other/Comment: NEOPLASM LARGE BOWEL - GENITOURINARY/GYNECOLOGICAL Hx Genitourinary Disorders: No - PSYCHIATRIC Hx Substance Use: No - SURGICAL HISTORY Hx Tonsillectomy: Yes - ANESTHESIA Hx Anesthesia: Yes Hx Anesthesia Reactions: No Hx Malignant Hyperthermia: No Meds Allergies/Adverse Reactions: Allergies Allergy/AdvReac Type Severity Reaction Status Date / Time mushroom Allergy Verified 10/10/16 08:14 Physical Exam - Constitutional Appears: Non-toxic, No Acute Distress - Head Exam Head Exam: NORMAL INSPECTION - Eye Exam Eye Exam: EOMI - ENT Exam ENT Exam: Mucous Membranes Dry - Respiratory Exam Respiratory Exam: Clear to Auscultation Bilateral, NORMAL BREATHING PATTERN - Cardiovascular Exam Cardiovascular Exam: Tachycardia, REGULAR RHYTHM, +S1, +S2 - GI/Abdominal Exam GI & Abdominal Exam: Normal Bowel Sounds, Soft, Tenderness (infraumbilical ). absent: Bruit, Distended, Pulsatile Mass - Extremities Exam Extremities exam: Positive for: normal inspection, pedal pulses present. Negative for: pedal edema - Back Exam Back exam: NORMAL INSPECTION. absent: tenderness - Neurological Exam Neurological exam: Alert, Oriented x3 - Psychiatric Exam Psychiatric exam: Normal Affect, Normal Mood - Skin Skin Exam: Dry, Intact, Warm Results - Vital Signs Recent Vital Signs: Last Vital Signs Temp 98.4 F 10/10/16 14:37 Pulse 127 H 10/10/16 14:37 Resp 20 10/10/16 14:37 BP 138/71 10/10/16 14:37 Pulse Ox 98 10/10/16 14:37 - Labs Result Diagrams: 10/10/16 08:51 10/10/16 08:51 Assessment & Plan - Assessment and Plan (Free Text) Assessment: Mycotic aneurysm * WBC: 13.2 * CT abdomen/pelvis: Interval development of 1.5 x 1.6 cm enhancing focus within the mid abdomen (series 3, image 113) ; surrounding inflammatory changes are noted. This appears to communicate with an arcade branch of the SMA. Finding suspected to reflect mycotic aneurysm. * F/U blood culture * IR consult (Dr. Meier) * Vascular surgery consult (Dr. Farias) - pt to go for embolization of aneurysm * NPO * NS @ 75ml/hr Tachycardia * HR ranging from 99-132 in the ED * Likely 2/2 pain * EKG: sinus tachycardia, otherwise unremarkable Prophylaxis * SCDs * Heparin held for vascular procedure * Pepcid held per Dr. Dolan <Irwin Dolan M - Last Filed: 10/10/16 18:01> Results - Vital Signs Recent Vital Signs: Last Vital Signs Temp 97.7 F 10/10/16 16:45 Pulse 91 H 10/10/16 17:15 Resp 16 10/10/16 17:15 BP 132/58 L 10/10/16 17:15 Pulse Ox 95 10/10/16 17:15 - Labs Result Diagrams: 10/10/16 08:51 10/10/16 08:51 Attending/Attestation - Attestation I have personally seen and examined this patient.: Yes I have fully participated in the care of the patient.: Yes I have reviewed all pertinent clinical information: Yes Notes (Text): 10/10/16 17:59 Patient was seen and examined at bedside with the resident at the time of admission Patient complains of abdominal pain. The patient for an ascending aneurysm Plan is for coil embolization of the aneurysm by interventional radiology I discussed the plan of care with the resident. I discussed the plan of care with the vascular surgeon Dr. Farias. Agree with the history and physical and assessment/plan documented.
--- NOTE | 2016-10-10 16:03 | PCM.SURG1 ---
Surgeon's Initial Post Op Note - Surgeon's Notes Surgeon: Herberth Siddiqui MD Kitchen Work Supervisor: None Type of Anesthesia: Moderate Sedation{RN} Pre-Operative Diagnosis: Superior mesenteric artery aneurysm Operative Findings: SMA angiogram showed a large, 2.5 cm aneurysm from branch of SMA. 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 Specimen/Specimens Removed: NONE Estimated Blood Loss: EBL {In ML}: 5 Blood Products Given: N/A Drains Used: No Drains Post-Op Condition: Fair Date of Surgery/Procedure: 10/10/16 Time of Surgery/Procedure: 16:00
[2016-10-10] MEDS: Sodium Chloride 0.9% 1,000 ML IV SCH (17:01)
--- NOTE | 2016-10-10 17:53 | CP.PCM.CON ---
History of Present Illness - History of Present Illness History of Present Illness: Patient is a 66yo male consulted for SMA aneurysm. Patient presented to ED today with complaints of mid abdominal and low back pain for the past few weeks. He rated his pain as sharp and 10/10 intensity without radiation. He says his symptoms fluctuate throughout the day and worsened by bending his knees and getting out of bed. He states symptoms are improved with lying down. Patient also reports an associated unintentional 40 pound weight loss. He states he experiences nausea post-prandially. Patient denies fevers, bloody bowel movements, diarrhea, constipation, hematuria, dysuria. All other 12-point ROS otherwise negative. PMHx: Arthritis, Vertigo PSHx: Tonsillectomy Allergies: NKDA FHx: Mother -ulcers; Father - appendectomy Social: Denies tobacco, alcohol, IV drug abuse. +Marijuana use years ago but no longer using Past Patient History - Infectious Disease Hx of Infectious Diseases: None - Past Medical History & Family History Past Medical History?: Yes - Past Social History Smoking Status: Never Smoked - CARDIAC Hx Cardiac Disorders: No - PULMONARY Hx Respiratory Disorders: No - NEUROLOGICAL Hx Neurological Disorder: Yes Hx Dizziness: Yes Hx Vertigo: Yes - HEENT Hx HEENT Problems: Yes (SEASONAL ALLERGIES) - RENAL Hx Chronic Kidney Disease: No - ENDOCRINE/METABOLIC Hx Endocrine Disorders: No - HEMATOLOGICAL/ONCOLOGICAL Hx Blood Disorders: No - INTEGUMENTARY Hx Dermatological Problems: No - MUSCULOSKELETAL/RHEUMATOLOGICAL Hx Musculoskeletal Disorders: Yes Hx Back Pain: Yes - GASTROINTESTINAL Hx Gastrointestinal Disorders: Yes (SEE COMMENT) Hx Constipation: Yes Hx Diverticulitis: No (DIVERTICULOSIS) Other/Comment: NEOPLASM LARGE BOWEL - GENITOURINARY/GYNECOLOGICAL Hx Genitourinary Disorders: No - PSYCHIATRIC Hx Substance Use: No - SURGICAL HISTORY Hx Tonsillectomy: Yes - ANESTHESIA Hx Anesthesia: Yes Hx Anesthesia Reactions: No Hx Malignant Hyperthermia: No Has any member of the family had a problem w/ anesthesia?: No Meds Allergies/Adverse Reactions: Allergies Allergy/AdvReac Type Severity Reaction Status Date / Time mushroom Allergy Verified 10/10/16 08:14 - Medications Medications: Current Medications Sodium Chloride (Sodium Chloride 0.9%) 1,000 mls @ 75 mls/hr IV .[id number] MONICA Last Admin: 10/10/16 17:01 Dose: 75 mls/hr Physical Exam - Constitutional Appears: Non-toxic, No Acute Distress - Head Exam Head Exam: ATRAUMATIC, NORMAL INSPECTION - Eye Exam Eye Exam: EOMI, Normal appearance - ENT Exam ENT Exam: Mucous Membranes Moist - Respiratory Exam Respiratory Exam: NORMAL BREATHING PATTERN. absent: Respiratory Distress, Stridor - Cardiovascular Exam Cardiovascular Exam: REGULAR RHYTHM. absent: Bradycardia, Tachycardia - GI/Abdominal Exam GI & Abdominal Exam: Soft, Tenderness. absent: Pulsatile Mass, Rebound, Rigid Additional comments: Tender to palpation in mid-abdomen and RUQ - Extremities Exam Extremities exam: Positive for: normal inspection, pedal pulses present. Negative for: pedal edema, tenderness - Neurological Exam Neurological exam: Alert, Oriented x3 - Psychiatric Exam Psychiatric exam: Flat Affect, Normal Mood - Skin Skin Exam: Dry, Intact, Normal Color Additional comments: R. inguinal incision c/d/i without erythema, discharge Results - Vital Signs Recent Vital Signs: Last Vital Signs Temp 97.7 F 10/10/16 16:45 Pulse 91 H 10/10/16 17:15 Resp 16 10/10/16 17:15 BP 132/58 L 10/10/16 17:15 Pulse Ox 95 10/10/16 17:15 - Labs Result Diagrams: 10/10/16 08:51 10/10/16 08:51 Assessment & Plan - Assessment and Plan (Free Text) Assessment: 66M w/ SMA aneurysm s/p mesenteric angiogram and coil embolization of the SMA branch -Monitor vitals -Monitor abdomen -Medical management per ICU team -Will continue to monitor -Further recs per Dr. Jarrett Bradley PGY-2
--- NOTE | 2016-10-10 19:54 | CP.PCM.CON ---
<Mikael Kent Jayla - Last Filed: 10/10/16 20:32> History of Present Illness - History of Present Illness History of Present Illness: Patient is a 66 year old male with a PMHx of arthritis and vertigo who , per chart review, presented to the ED with mid lower abdominal and low back pain for the past one month. However when interviewed by junior copywriter, patient stated he felt malaise and looked gaunt in the mirror and decided to come to ED. This was his 6th visit to the ED this month with previous visits for vertigo, abdominal pain, and back pain. Patient also reports a 40 lb weight loss in the last few months. He says he's felt a loss of interest or pleasure in activities during that time, and decreased energy and insomnia. Admits to suicidal ideation without plan. Stated "I've felt like I just don't give a damn". Denies fever, n/v, d/c, chest pain, shortness of breath, headache. 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 absent: Chills, Fever , Headache - Cardiovascular Cardiovascular: absent: Chest Pain, Edema, Palpitations, Rapid Heart Rate - Respiratory Respiratory: absent: Cough, Wheezing - Gastrointestinal Gastrointestinal: absent: Abdominal Pain, Diarrhea, Vomiting - Genitourinary Genitourinary: absent: Difficulty Urinating, Dysuria - Psychiatric Psychiatric: Abnormal Sleep Pattern, Change in Appetite, Depression, Hopelessness, Suicidal Ideation. absent: Anxiety, Hallucinations Past Patient History - Infectious Disease Hx of Infectious Diseases: None - Past Medical History & Family History Past Medical History?: Yes - Past Social History Smoking Status: Never Smoked - CARDIAC Hx Cardiac Disorders: No - PULMONARY Hx Respiratory Disorders: No - NEUROLOGICAL Hx Neurological Disorder: Yes Hx Dizziness: Yes Hx Vertigo: Yes - HEENT Hx HEENT Problems: Yes (SEASONAL ALLERGIES) - RENAL Hx Chronic Kidney Disease: No - ENDOCRINE/METABOLIC Hx Endocrine Disorders: No - HEMATOLOGICAL/ONCOLOGICAL Hx Blood Disorders: No - INTEGUMENTARY Hx Dermatological Problems: No - MUSCULOSKELETAL/RHEUMATOLOGICAL Hx Musculoskeletal Disorders: Yes Hx Back Pain: Yes - GASTROINTESTINAL Hx Gastrointestinal Disorders: Yes (SEE COMMENT) Hx Constipation: Yes Hx Diverticulitis: No (DIVERTICULOSIS) Other/Comment: NEOPLASM LARGE BOWEL - GENITOURINARY/GYNECOLOGICAL Hx Genitourinary Disorders: No - PSYCHIATRIC Hx Substance Use: No - SURGICAL HISTORY Hx Tonsillectomy: Yes - ANESTHESIA Hx Anesthesia: Yes Hx Anesthesia Reactions: No Hx Malignant Hyperthermia: No Has any member of the family had a problem w/ anesthesia?: No Meds Allergies/Adverse Reactions: Allergies Allergy/AdvReac Type Severity Reaction Status Date / Time mushroom Allergy Verified 10/10/16 08:14 - Medications Medications: Current Medications Sodium Chloride (Sodium Chloride 0.9%) 1,000 mls @ 75 mls/hr IV .[id number] [facility] Last Admin: 10/10/16 17:01 Dose: 75 mls/hr Physical Exam - Constitutional Appears: Non-toxic - Head Exam Head Exam: ATRAUMATIC - Eye Exam Eye Exam: EOMI - ENT Exam ENT Exam: Mucous Membranes Moist - Neck Exam Neck exam: Positive for: Normal Inspection - Respiratory Exam Respiratory Exam: Clear to Auscultation Bilateral, NORMAL BREATHING PATTERN - Cardiovascular Exam Cardiovascular Exam: REGULAR RHYTHM, +S1, +S2 - GI/Abdominal Exam GI & Abdominal Exam: Normal Bowel Sounds, Soft - Extremities Exam Extremities exam: Positive for: normal inspection. Negative for: pedal edema - Back Exam Back exam: NORMAL INSPECTION. 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 Patient now in ICU to monitor recovery. Neuro: major depressive disorder; suicidal ideation - psych consult, Dr Galvez Pulmonary: CV: Endocrine: 40 lb weight loss in past few months - TSH, B12, Vit D, F/U GI: 40 lb weight loss - GI consult, Dr Horn Heme: - H/H wnl - Iron studies Renal: - BUN/Cr 21/0.7 MSK: chronic low back pain - nsaid prn ID: leukocytosis - UA (+) protein, (+) wbc - HIV screen, F/U Prophylaxis: - DVT: hold dvt prophylaxis until tomorrow - GI: famotidine 20mg po bid - Diet: regular <Kilo Mcleod P - Last Filed: 10/10/16 21:11> Meds - Medications Medications: Current Medications Famotidine (Pepcid) 20 mg PO BID [facility] Sodium Chloride (Sodium Chloride 0.9%) 1,000 mls @ 75 mls/hr IV .[id number] [facility] Last Admin: 10/10/16 17:01 Dose: 75 mls/hr Results - Vital Signs Recent Vital Signs: Last Vital Signs Temp 97.8 F 10/10/16 20:00 Pulse 98 H 10/10/16 20:11 Resp 13 10/10/16 20:11 BP 120/51 L 10/10/16 20:11 Pulse Ox 95 10/10/16 20:11 - Labs Result Diagrams: 10/10/16 08:51 10/10/16 08:51 Attending/Attestation - Attestation I have personally seen and examined this patient.: Yes I have fully participated in the care of the patient.: Yes I have reviewed all pertinent clinical information: Yes Notes (Text): 10/10/16 21:06 66 M presented to ED not feeling well, h/o 40lb weight loss for not eating well last 2-3 month, chronic back pain, CT abd/pelvis showed aneurysm in SMA, which was embolized with by coiling by IR patient here for post of f/u, no swelling in right groin, PT and DP palpable. It seem patient's presenting symptoms not from the above diagnosis and about CT finding new since CT done 5 days back in ER. Patient will be evaluated by primary team for DD of depression, gastric abnormalities by gi, and malnutrition w/u, see orders for detail.
--- NOTE | 2016-10-11 00:57 | CON ---
DATE: 10/10/[address] Dolan HISTORY OF PRESENT ILLNESS: The patient is a 66-year-old man seen in the emergency room of [facility] on an emergency basis because of abdominal pain. The patient's past medical history is basically remarkable. He has no history of diabetes, no history of hypertension, no history of smoking, and no history of exposure to HIV or sexually transmitted diseases. He had pain, he has lost weight approximately 40 pounds in the past few months and has had some difficulty with loss of appetite, but the reason for this was unknown. He also admits on system review to occasional night sweats. PAST MEDICAL HISTORY: Past history pertinent is unremarkable. MEDICATIONS: Reviewed. FAMILY HISTORY: Noted. SOCIAL HISTORY: Noted. PHYSICAL EXAMINATION: ABDOMEN: No marked abdominal tenderness, but as he said there is some pain in the pit of his stomach below the umbilicus suprapubic region. EXTREMITIES: All upper extremities pulses are present. All lower extremities pulses are present. 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 I reviewed this with interventional radiologist Dr. Meier who felt that this was evidence of potential leak and the patient should be operated on urgently. Because of this, the patient was taken to the label press operator and procedure carried out and emergency intervention with coiling of the aneurysm with excellent clinical results. PLAN: Our plan is to monitor the patient. There is still risk of bowel ischemia and we will watch the patient very closely. Oswaldo Farias Jr., MD
[2016-10-11] MEDS: Sodium Chloride 0.9% 1,000 ML IV SCH ×3 (04:21→20:17)
[2016-10-11 05:44] LABS: BASO % 0.4 % (0.0-2.0); EOS # 0.1 K/uL (0.0-0.7); EOS % 1.1 % (0.0-4.0); HEMATOCRIT 30.8 % (35.0-51.0); LYMPH # 1.4 K/uL (1.0-4.3); LYMPH % 13.2 % (20.0-40.0); MEAN CELL VOLUME 79.7 fL (80.0-94.0); MEAN CORPUSCULAR HEMOGLOBIN 26.3 pg (27.0-31.0); MEAN PLATELET VOLUME 8.7 fL (7.2-11.7); MONO # 0.9 K/uL (0.0-0.8); MONO % 8.4 % (0.0-10.0); RED CELL DISTRIBUTION WIDTH 15.4 % (11.5-14.5); WHITE BLOOD COUNT 10.3 K/uL (4.8-10.8)
[2016-10-11 06:05] LABS: CHLORIDE 103 mmol/L (98-107); SODIUM 137 mmol/L (132-148)
[2016-10-11 06:06] LABS: POTASSIUM 3.7 mmol/L (3.6-5.2)
[2016-10-11 06:08] LABS: ALB/GLOB RATIO 0.7 (1.0-2.1); ALKALINE PHOSPHATASE 60 U/L (38-126); AST/SGOT 46 U/L (17-59); BILIRUBIN,TOTAL 0.7 mg/dL (0.2-1.3); BLOOD UREA NITROGEN 14 mg/dL (9-20); CARBON DIOXIDE 22 mmol/L (22-30); GFR AFRICAN-AMERICAN > 60; TOTAL PROTEIN 7.3 g/dL (6.3-8.3)
[2016-10-11 06:09] LABS: ALT/SGPT 43 U/L (21-72); CALCIUM 8.9 mg/dl (8.6-10.4); GLUCOSE,RANDOM 102 mg/dL (75-110)
[2016-10-11 06:11] LABS: MAGNESIUM 1.9 mg/dL (1.6-2.3); PHOSPHOROUS 2.6 mg/dL (2.5-4.5)
[2016-10-11 07:18] LABS: THYROID STIMULATING HORMONE 1.71 mIU/L (0.46-4.68)
--- NOTE | 2016-10-11 08:55 | CP.PCM.PN ---
Subjective - Date & Time of Evaluation Date of Evaluation: 10/11/16 Time of Evaluation: 08:52 - Subjective Subjective: Patient was seen and examined at bedside. Patient was sitting comfortably in chair. He tolerated his diet yesterday. Patient reports he has intermittent nausea after eating, which resolved. Patient denies chest pain, v/f/c. Objective - Vital Signs/Intake and Output Vital Signs (last 24 hours): Temp Pulse Resp BP Pulse Ox 98.5 F 80 25 H 110/42 L 96 10/11/16 04:00 10/11/16 06:00 10/11/16 06:00 10/11/16 05:41 10/11/16 06:00 Intake and Output: 10/11/16 10/11/16 06:59 18:59 Intake Total 1340 Output Total 700 Balance 640 - Medications Medications: Current Medications Famotidine (Pepcid) 20 mg PO BID [facility] Sodium Chloride (Sodium Chloride 0.9%) 1,000 mls @ 75 mls/hr IV .[id number] [facility] Last Admin: 10/11/16 04:21 Dose: Not Given - Labs Labs: 10/11/16 05:36 10/11/16 05:36 PT 15.0 SECONDS (9.7-12.2) H 10/10/16 08:51 INR 1.3 10/10/16 08:51 APTT 34 SECONDS (21-34) 10/10/16 08:51 - Constitutional Appears: Non-toxic, No Acute Distress - Head Exam Head Exam: ATRAUMATIC, NORMAL INSPECTION - Eye Exam Eye Exam: EOMI - ENT Exam ENT Exam: Mucous Membranes Moist - Respiratory Exam Respiratory Exam: NORMAL BREATHING PATTERN. absent: Respiratory Distress - Cardiovascular Exam Cardiovascular Exam: +S1, +S2. absent: Bradycardia, Tachycardia - GI/Abdominal Exam GI & Abdominal Exam: Soft, Tenderness (midline tenderness w/palpation). absent : Distended, Rigid - Extremities Exam Extremities Exam: absent: Pedal Edema, Tenderness - Neurological Exam Neurological Exam: Alert, Awake, Oriented x3 - Psychiatric Exam Psychiatric exam: Flat Affect, Normal Mood - Skin Skin Exam: Dry, Intact, Normal Color, Warm Additional comments: Right femoral incision: clean, dry, intact Assessment and Plan - Assessment and Plan (Free Text) Assessment: 66 year old male with SMA aneurysm s/p coil embolization of SMA branch. - Monitor serial abdominal exams - Continue medical management as per hospitalist team.
--- NOTE | 2016-10-11 12:08 | SPECPROC ---
PROCEDURE: PROCEDURE: 1. Super mesenteric artery angiogram 2. Embolization of middle colleague artery Medications: Versed at 1 milligram, microgram fentanyl, 2 percent lidocaine 8 cubic centimeters HISTORY: Abdominal pain, SMA branch aneurysm impending rupture TECHNIQUE: Following informed consent and procedure time-out, the right groin was marked. The patient placed supine on the interventional table and the right groin was prepped and draped in the usual sterile fashion. The right common femoral artery was accessed with micropuncture technique. A guidewire is advanced under fluoroscopic guidance into the abdominal aorta. Through a 5 Faroese sheath, a Cobra glide catheter was used to catheterize the superior mesenteric artery and selective superior mesenteric artery angiogram was performed. Findings: Superior mesenteric artery angiogram showed 2.5 centimeter aneurysm of the middle colic artery. No extravasation of contrast seen. A micro catheter was advanced through the Cobra catheter and advanced into the aneurysm. The catheter could not be advanced beyond the aneurysm. With the catheter positioned within the aneurysm, embolization was performed using various size microcoils formed within the aneurysm. 8 millimeter x 35 centimeter soft Lia coils were placed within the aneurysm forming a framework for deployment of other microcoils. Lia coils measuring 8 millimeters, 6 millimeters, and 4 millimeters because we used to treat aneurysm and also the proximal artery. Following coil embolization of aneurysm, coils were placed within the artery proximal to the aneurysm. The post embolization angiogram showed no flow within aneurysm. Catheters and guidewires removed. The 5 Faroese vascular sheath was then pulled and hemostasis achieved with manual compression. There were no immediate complications. A dressing applied. IMPRESSION: Large aneurysm off of a branch of the superior mesenteric artery successfully treated with embolization using detachable microcoils.
--- NOTE | 2016-10-11 13:31 | CP.PCM.PN ---
Subjective - Date & Time of Evaluation Date of Evaluation: 10/11/16 Time of Evaluation: 13:00 - Subjective Subjective: Patient was seen and examined at bedside in ICU Patient is awake alert without any acute distress Complains of abdominal and back pain. Objective - Vital Signs/Intake and Output Vital Signs (last 24 hours): Temp Pulse Resp BP Pulse Ox 97.5 F L 90 15 108/42 L 96 10/11/16 08:00 10/11/16 10:11 10/11/16 10:11 10/11/16 10:11 10/11/16 06:00 Intake and Output: 10/11/16 10/11/16 06:59 18:59 Intake Total 1340 240 Output Total 700 30 Balance 640 210 - Medications Medications: Current Medications Famotidine (Pepcid) 20 mg PO BID [facility] Last Admin: 10/11/16 09:54 Dose: 20 mg Sodium Chloride (Sodium Chloride 0.9%) 1,000 mls @ 75 mls/hr IV .[id number] [facility] Last Admin: 10/11/16 04:21 Dose: Not Given Oxycodone/Acetaminophen (Percocet 5/325 Mg Tab) 1 tab PO Q6H PRN PRN Reason: Pain, severe (8-10) Stop: 10/14/16 13:27 - Labs Labs: 10/11/16 05:36 10/11/16 05:36 PT 15.0 SECONDS (9.7-12.2) H 10/10/16 08:51 INR 1.3 10/10/16 08:51 APTT 34 SECONDS (21-34) 10/10/16 08:51 - Head Exam Head Exam: ATRAUMATIC, NORMOCEPHALIC - Eye Exam Eye Exam: Normal appearance - ENT Exam ENT Exam: Mucous Membranes Moist - Neck Exam Neck Exam: Normal Inspection - Respiratory Exam Respiratory Exam: Clear to Ausculation Bilateral. absent: Chest Wall Tenderness - Cardiovascular Exam Cardiovascular Exam: RRR, +S1, +S2 - GI/Abdominal Exam GI & Abdominal Exam: Soft, Tenderness - Extremities Exam Extremities Exam: absent: Pedal Edema Assessment and Plan (1) Aneurysm of mesenteric artery Assessment & Plan: Patient is status post coil embolization by Dr. Herberth Meier. Patient is hemodynamically stable. Vascular surgery is also on board. Status: Acute (2) Abdominal pain Assessment & Plan: Possibly secondary to above. Manage symptomatically. Status: Acute (3) Bacteremia Assessment & Plan: Patient started on IV antibiotics. Patient is currently on vancomycin and Zosyn. I requested ID consultation. Status: Acute
[2016-10-11] MEDS: Oxycodone/Acetaminophen 5/325 mg Tab PO PRN ×2 (16:06→21:42)
--- NOTE | 2016-10-11 17:20 | CP.PCM.CON ---
History of Present Illness - History of Present Illness History of Present Illness: CC: GI consult requested for weight loss HPI: GI consult requested on this 66 year old man admitted for abdominal pain, subsequently diagnosed with SMA mycotic aneurysm, treated by IR. Patient had Iron deficiency anemia, and lost 40 lbs over past few months. Poor appetite, food doesn't taste good. No desire to eat. Dark stools but not melena. Colonoscopy 2014 showed 2 benign adenomatous polyps. Patient developed anemia fairly recently. denies dysphagia, but does feel he has to sometime vomit after eating. lifelong history of frequent antacid use for "stomach problems". Review of Systems - Constitutional Constitutional: Anorexia, Weight Loss - Cardiovascular Cardiovascular: absent: Chest Pain - Respiratory Respiratory: absent: Dyspnea - Gastrointestinal Gastrointestinal: Change in Bowel Habits, Change in Stool Character, Heartburn, Nausea. absent: Bloating, Constipation, Dysphagia, Melena - Musculoskeletal Musculoskeletal: Back Pain - Integumentary Integumentary: absent: Swelling - Neurological Neurological: absent: Abnormal Hearing - Psychiatric Psychiatric: absent: Anhedonia Past Patient History - Infectious Disease Hx of Infectious Diseases: None - Past Medical History & Family History Past Medical History?: Yes - Past Social History Smoking Status: Never Smoked - CARDIAC Hx Cardiac Disorders: No - PULMONARY Hx Respiratory Disorders: No - NEUROLOGICAL Hx Neurological Disorder: Yes Hx Dizziness: Yes Hx Vertigo: Yes - HEENT Hx HEENT Problems: Yes (SEASONAL ALLERGIES) - RENAL Hx Chronic Kidney Disease: No - ENDOCRINE/METABOLIC Hx Endocrine Disorders: No - HEMATOLOGICAL/ONCOLOGICAL Hx Blood Disorders: No - INTEGUMENTARY Hx Dermatological Problems: No - MUSCULOSKELETAL/RHEUMATOLOGICAL Hx Musculoskeletal Disorders: Yes Hx Back Pain: Yes - GASTROINTESTINAL Hx Gastrointestinal Disorders: Yes (SEE COMMENT) Hx Constipation: Yes Hx Diverticulitis: No (DIVERTICULOSIS) Other/Comment: NEOPLASM LARGE BOWEL - GENITOURINARY/GYNECOLOGICAL Hx Genitourinary Disorders: No - PSYCHIATRIC Hx Substance Use: No - SURGICAL HISTORY Hx Tonsillectomy: Yes - ANESTHESIA Hx Anesthesia: Yes Hx Anesthesia Reactions: No Hx Malignant Hyperthermia: No Has any member of the family had a problem w/ anesthesia?: No Meds Allergies/Adverse Reactions: Allergies Allergy/AdvReac Type Severity Reaction Status Date / Time mushroom Allergy Verified 10/10/16 08:14 - Medications Medications: Current Medications Famotidine (Pepcid) 20 mg PO BID [facility] Last Admin: 10/11/16 09:54 Dose: 20 mg Sodium Chloride (Sodium Chloride 0.9%) 1,000 mls @ 75 mls/hr IV .[id number] [facility] Last Admin: 10/11/16 04:21 Dose: Not Given Vancomycin/Sodium Chloride (Vancocin) 1 gm in 200 mls @ 133 mls/hr IVPB Q12H [facility] Stop: 10/16/16 18:01 Oxycodone/Acetaminophen (Percocet 5/325 Mg Tab) 1 tab PO Q6H PRN PRN Reason: Pain, severe (8-10) Stop: 10/14/16 13:27 Last Admin: 10/11/16 16:06 Dose: 1 tab Physical Exam - Constitutional Appears: No Acute Distress, Chronically Ill - Head Exam Head Exam: NORMOCEPHALIC - Eye Exam Eye Exam: absent: Scleral icterus - ENT Exam ENT Exam: Normal Exam - Neck Exam Neck exam: Positive for: Normal Inspection - Respiratory Exam Respiratory Exam: Clear to Auscultation Bilateral - Cardiovascular Exam Cardiovascular Exam: REGULAR RHYTHM - GI/Abdominal Exam GI & Abdominal Exam: Soft. absent: Mass, Rebound, Tenderness - Rectal Exam Rectal Exam: Deferred Results - Vital Signs Recent Vital Signs: Last Vital Signs Temp 97.5 F L 10/11/16 08:00 Pulse 90 10/11/16 10:11 Resp 15 10/11/16 10:11 BP 108/42 L 10/11/16 10:11 Pulse Ox 96 10/11/16 06:00 - Labs Result Diagrams: 10/11/16 05:36 10/11/16 05:36 Labs: Laboratory Results - last 24 hr 10/11/16 10/11/16 10/11/16 05:36 05:36 05:36 WBC RBC Hgb Hct MCV MCH MCHC RDW Plt Count MPV Neut % (Auto) Lymph % (Auto) [place] % (Auto) Eos % (Auto) Baso % (Auto) Neut # Lymph # [place] # Eos # Baso # Sodium Potassium Chloride Carbon Dioxide Anion Gap BUN Creatinine Est GFR ( Amer) Est GFR (Non-Af Amer) Random Glucose Calcium Phosphorus Magnesium % Saturation 5 L Ferritin 468.0 Total Bilirubin AST ALT Alkaline Phosphatase Total Protein Albumin Globulin Albumin/Globulin Ratio Vitamin B12 > 1000 H 25-OH Vitamin D Total 38.5 TSH 3rd Generation 1.71 HIV 1&2 Antibody Screen 10/11/16 10/11/16 10/11/16 05:36 05:36 05:36 WBC 10.3 RBC 3.87 L Hgb 10.2 L D Hct 30.8 L MCV 79.7 L MCH 26.3 L MCHC 33.0 RDW 15.4 H Plt Count 348 MPV 8.7 Neut % (Auto) 76.9 H Lymph % (Auto) 13.2 L [place] % (Auto) 8.4 Eos % (Auto) 1.1 Baso % (Auto) 0.4 Neut # 7.9 H Lymph # 1.4 [place] # 0.9 H Eos # 0.1 Baso # 0.0 Sodium 137 Potassium 3.7 Chloride 103 Carbon Dioxide 22 Anion Gap 16 BUN 14 Creatinine 0.6 L Est GFR ( Amer) > 60 Est GFR (Non-Af Amer) > 60 Random Glucose 102 Calcium 8.9 Phosphorus Magnesium % Saturation Ferritin Total Bilirubin 0.7 AST 46 ALT 43 Alkaline Phosphatase 60 Total Protein 7.3 Albumin 3.0 L Globulin 4.3 H Albumin/Globulin Ratio 0.7 L Vitamin B12 25-OH Vitamin D Total TSH 3rd Generation HIV 1&2 Antibody Screen Negative 10/11/16 05:36 WBC RBC Hgb Hct MCV MCH MCHC RDW Plt Count MPV Neut % (Auto) Lymph % (Auto) [place] % (Auto) Eos % (Auto) Baso % (Auto) Neut # Lymph # [place] # Eos # Baso # Sodium Potassium Chloride Carbon Dioxide Anion Gap BUN Creatinine Est GFR ( Amer) Est GFR (Non-Af Amer) Random Glucose Calcium Phosphorus 2.6 Magnesium 1.9 % Saturation Ferritin Total Bilirubin AST ALT Alkaline Phosphatase Total Protein Albumin Globulin Albumin/Globulin Ratio Vitamin B12 25-OH Vitamin D Total TSH 3rd Generation HIV 1&2 Antibody Screen Assessment & Plan (1) Weight loss Assessment and Plan: Colonoscopy normal 2 years ago R/O upper GI malignancy CT does not show pancreas malignancy Rec: EGD next week or as outpatient Status: Acute (2) Iron deficiency anemia Assessment and Plan: R/O GI Blood losses Rec: Check stool OB. EGD to be scheduled Status: Acute
--- NOTE | 2016-10-11 18:03 | CP.PCM.CON ---
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 by IR ID CONSULTED FOR POSITIVE BLOOD CULTURES + HX OF RECENT DENTAL WORK CONCERN FOR POSSIBLE ENDOCARDITIS VS MALIGNANCY WILL NEED JASON Review of Systems - Review of Systems All systems: reviewed and no additional remarkable complaints except - Constitutional Constitutional: As Per HPI, Anorexia, Malaise, Weight Loss, Weakness - EENT Eyes: absent: As Per HPI, Blind Spots, Blurred Vision, Change in Vision, Decreased Night Vision, Diplopia, Discharge, Dry Eye, Exophthalmos, Floaters, Irritation, Itchy Eyes, Loss of Peripheral Vision, Pain, Photophobia, Requires Corrective Lenses, Sees Flashes, Spots in Vision, Tunnel Vision, Other Visual Disturbances, Loss of Vision, Other Ears: absent: As Per HPI, Decreased Hearing, Ear Discharge, Ear Pain, Tinnitus, Abnormal Hearing, Disequilibrium, Dizziness, Other Nose/Mouth/Throat: absent: As Per HPI, Epistaxis, Nasal Congestion, Nasal Discharge, Nasal Obstruction, Nasal Trauma, Nose Pain, Post Nasal Drip, Sinus Pain, Sinus Pressure, Bleeding Gums, Change in Voice, Dental Pain, Dry Mouth, Dysphagia, Halitosis, Hoarsness, Lip Swelling, Mouth Lesions, Mouth Pain, Odynophagia, Sore Throat, Throat Swelling, Tongue Swelling, Facial Pain, Neck Pain, Neck Mass, Other - Cardiovascular Cardiovascular: absent: As Per HPI, Acrocyanosis, Chest Pain, Chest Pain at Rest , Chest Pain with Activity, Claudication, Diaphoresis, Dyspnea, Dyspnea on Exertion, Edema, Irregular Heart Rhythm, Pain Radiating to Arm/Neck/Jaw, Leg Edema, Leg Ulcers, Lightheadedness, Orthopnea, Palpitations, Paroxysmal Nocturnal Dyspnea, Pedal Edema, Radiating Pain, Rapid Heart Rate, Slow Heart Rate, Syncope, Other - Respiratory Respiratory: absent: As Per HPI, Cough, Dyspnea, Hemoptysis, Dyspnea on Exertion , Wheezing, Snoring, Stridor, Pain on Inspiration, Chest Congestion, Excessive Mucous Production, Change in Mucous Color, Pain with Coughing, Other - Gastrointestinal Gastrointestinal: As Per HPI, Abdominal Pain - Genitourinary Genitourinary: absent: As Per HPI, Change in Urinary Stream, Difficulty Urinating, Dysuria, Flank Pain, Hematuria, Pyuria, Nocturia, Urinary Incontinence, Urinary Frequency, Urinary Hesitance, Urinary Urgency, Voiding Freq/Small Amts, Freq UTI, Hx Renal/Bladder Calculi, Hx /Renal Surgery, Bladder Distension, Other - Musculoskeletal Musculoskeletal: absent: As Per HPI, Abnormal Gait, Arthralgias, Atrophy, Back Pain, Deformity, Joint Swelling, Limited Range of Motion, Loss of Height, Muscle Cramps, Muscle Weakness, Myalgias, Neck Pain, Numbness, Radiating Pain into Limb, Stiffness, Tingling, Other - Integumentary Integumentary: absent: As Per HPI, Acne, Alopecia, Bleeding Lesions, Change in Hair, Change in Nails, Change in Pigmentation, Changing Lesions, Dry Skin, Erythema, Furuncle, Hirsutism, Lesions, New Lesions, Non-Healing Lesions, Photosensitivity, Pruritus, Rash, Skin Pain, Skin Ulcer, Sores, Striae, Swelling , Unusual Bruising, Wounds, Jaundice, Other - Neurological Neurological: absent: As Per HPI, Abnormal Gait, Abnormal Hearing, Abnormal Movements, Abnormal Speech, Behavioral Changes, Burning Sensations, Confusion, Convulsions, Disequilibrium, Dizziness, Numbness, Focal Weakness, Frequent Falls , Headaches, Lack of Coordination, Loss of Vision, Memory Loss, Paresthesias, Radicular Pain, Restless Legs, Sensory Deficit, Syncope, Tingling, Tremor, Vertigo, Weakness, Other Visual Disturbances, Other - Psychiatric Psychiatric: absent: As Per HPI, Abnormal Sleep Pattern, Anhedonia, Anxiety, Auditory Hallucinations, Behavioral Changes, Change in Appetite, Change in Libido, Confusion, Depression, Difficulty Concentrating, Hallucinations, Homicidal Ideation, Hopelessness, Irritability, Memory Loss, Mood Swings, Panic Attacks, Paranoia, Suicidal Ideation, Visual Hallucinations, Tactile Hallucinations, Other - Endocrine Endocrine: absent: As Per HPI, Change in Body Appearance, Change in Libido, Cold Intolorance, Deepening of Voice, Excessive Sweating, Fatigue, Flushing, Heat Intolorance, Increase in Ring/Shoe/Hat Size, Palpitations, Polydipsia, Polyphagia, Polyuria, Other - Hematologic/Lymphatic Hematologic: absent: As Per HPI, Easy Bleeding, Easy Bruising, Lymphadenopathy, Other Past Patient History - Infectious Disease Hx of Infectious Diseases: None - Past Medical History & Family History Past Medical History?: Yes - Past Social History Smoking Status: Never Smoked - CARDIAC Hx Cardiac Disorders: No - PULMONARY Hx Respiratory Disorders: No - NEUROLOGICAL Hx Neurological Disorder: Yes Hx Dizziness: Yes Hx Vertigo: Yes - HEENT Hx HEENT Problems: Yes (SEASONAL ALLERGIES) - RENAL Hx Chronic Kidney Disease: No - ENDOCRINE/METABOLIC Hx Endocrine Disorders: No - HEMATOLOGICAL/ONCOLOGICAL Hx Blood Disorders: No - INTEGUMENTARY Hx Dermatological Problems: No - MUSCULOSKELETAL/RHEUMATOLOGICAL Hx Musculoskeletal Disorders: Yes Hx Back Pain: Yes - GASTROINTESTINAL Hx Gastrointestinal Disorders: Yes (SEE COMMENT) Hx Constipation: Yes Hx Diverticulitis: No (DIVERTICULOSIS) Other/Comment: NEOPLASM LARGE BOWEL - GENITOURINARY/GYNECOLOGICAL Hx Genitourinary Disorders: No - PSYCHIATRIC Hx Substance Use: No - SURGICAL HISTORY Hx Tonsillectomy: Yes - ANESTHESIA Hx Anesthesia: Yes Hx Anesthesia Reactions: No Hx Malignant Hyperthermia: No Has any member of the family had a problem w/ anesthesia?: No Meds Allergies/Adverse Reactions: Allergies Allergy/AdvReac Type Severity Reaction Status Date / Time mushroom Allergy Verified 10/10/16 08:14 - Medications Medications: Current Medications Famotidine (Pepcid) 20 mg PO BID [facility] Last Admin: 10/11/16 09:54 Dose: 20 mg Sodium Chloride (Sodium Chloride 0.9%) 1,000 mls @ 75 mls/hr IV .[id number] [facility] Last Admin: 10/11/16 04:21 Dose: Not Given Vancomycin/Sodium Chloride (Vancocin) 1 gm in 200 mls @ 133 mls/hr IVPB Q12H [facility] Stop: 10/16/16 18:01 Piperacillin Sod/Tazobactam (Sod 3.375 gm/ Sodium Chloride) 100 mls @ 200 mls/ hr IVPB Q8H [facility] Oxycodone/Acetaminophen (Percocet 5/325 Mg Tab) 1 tab PO Q6H PRN PRN Reason: Pain, severe (8-10) Stop: 10/14/16 13:27 Last Admin: 10/11/16 16:06 Dose: 1 tab Physical Exam - Constitutional Appears: Non-toxic, Cachectic, Chronically Ill - Head Exam Head Exam: NORMOCEPHALIC - Eye Exam Eye Exam: PERRL. absent: Scleral icterus Pupil Exam: PERRL - ENT Exam ENT Exam: Mucous Membranes Dry, Normal External Ear Exam, TM's Normal Bilaterally Additional comments: POOR DENTITION - Neck Exam Neck exam: Negative for: Lymphadenopathy - Respiratory Exam Respiratory Exam: Decreased Breath Sounds, Clear to Auscultation Bilateral - Cardiovascular Exam Cardiovascular Exam: REGULAR RHYTHM, +S1, +S2 - GI/Abdominal Exam GI & Abdominal Exam: Diminished Bowel Sounds, Soft. absent: Tenderness - Rectal Exam Rectal Exam: Deferred - Exam Exam: NORMAL INSPECTION - Extremities Exam Extremities exam: Positive for: pedal pulses present. Negative for: calf tenderness, pedal edema, tenderness - Back Exam Back exam: absent: CVA tenderness (L), CVA tenderness (R) - Neurological Exam Neurological exam: Alert, CN II-XII Intact, Oriented x3, Reflexes Normal - Psychiatric Exam Psychiatric exam: Normal Mood - Skin Skin Exam: Intact Results - Vital Signs Recent Vital Signs: Last Vital Signs Temp 99.4 F 10/11/16 16:00 Pulse 100 H 10/11/16 13:11 Resp 18 10/11/16 13:11 BP 112/57 L 10/11/16 13:11 Pulse Ox 96 10/11/16 06:00 - Labs Result Diagrams: 10/11/16 05:36 10/11/16 05:36 Labs: Laboratory Results - last 24 hr 10/11/16 10/11/16 10/11/16 05:36 05:36 05:36 WBC RBC Hgb Hct MCV MCH MCHC RDW Plt Count MPV Neut % (Auto) Lymph % (Auto) Grant % (Auto) Eos % (Auto) Baso % (Auto) Neut # Lymph # Grant # Eos # Baso # Sodium Potassium Chloride Carbon Dioxide Anion Gap BUN Creatinine Est GFR ( Amer) Est GFR (Non-Af Amer) Random Glucose Calcium Phosphorus Magnesium % Saturation 5 L Ferritin 468.0 Total Bilirubin AST ALT Alkaline Phosphatase Total Protein Albumin Globulin Albumin/Globulin Ratio Vitamin B12 > 1000 H 25-OH Vitamin D Total 38.5 TSH 3rd Generation 1.71 HIV 1&2 Antibody Screen 10/11/16 10/11/16 10/11/16 05:36 05:36 05:36 WBC 10.3 RBC 3.87 L Hgb 10.2 L D Hct 30.8 L MCV 79.7 L MCH 26.3 L MCHC 33.0 RDW 15.4 H Plt Count 348 MPV 8.7 Neut % (Auto) 76.9 H Lymph % (Auto) 13.2 L Grant % (Auto) 8.4 Eos % (Auto) 1.1 Baso % (Auto) 0.4 Neut # 7.9 H Lymph # 1.4 Grant # 0.9 H Eos # 0.1 Baso # 0.0 Sodium 137 Potassium 3.7 Chloride 103 Carbon Dioxide 22 Anion Gap 16 BUN 14 Creatinine 0.6 L Est GFR ( Amer) > 60 Est GFR (Non-Af Amer) > 60 Random Glucose 102 Calcium 8.9 Phosphorus Magnesium % Saturation Ferritin Total Bilirubin 0.7 AST 46 ALT 43 Alkaline Phosphatase 60 Total Protein 7.3 Albumin 3.0 L Globulin 4.3 H Albumin/Globulin Ratio 0.7 L Vitamin B12 25-OH Vitamin D Total TSH 3rd Generation HIV 1&2 Antibody Screen Negative 10/11/16 05:36 WBC RBC Hgb Hct MCV MCH MCHC RDW Plt Count MPV Neut % (Auto) Lymph % (Auto) Grant % (Auto) Eos % (Auto) Baso % (Auto) Neut # Lymph # Grant # Eos # Baso # Sodium Potassium Chloride Carbon Dioxide Anion Gap BUN Creatinine Est GFR ( Amer) Est GFR (Non-Af Amer) Random Glucose Calcium Phosphorus 2.6 Magnesium 1.9 % Saturation Ferritin Total Bilirubin AST ALT Alkaline Phosphatase Total Protein Albumin Globulin Albumin/Globulin Ratio Vitamin B12 25-OH Vitamin D Total TSH 3rd Generation HIV 1&2 Antibody Screen Assessment & Plan (1) Iron deficiency anemia Status: Acute (2) Mycotic aneurysm Status: Acute (3) Weight loss Status: Acute (4) Abdominal pain Status: Acute (5) Constipation Status: Acute (6) Low back pain Status: Acute (7) Vertigo Status: Acute - Assessment and Plan (Free Text) Assessment: MYCOTIC ANEURYSM S/P REPAIR + BLOOD CULTURES R/O ENDOCARDITIS R/O GI MALIGNANCY RECC CARDIO EVAL/ JASON IV ANTIBIOTICS
[2016-10-11] MEDS: Vancomycin 1 gm/NS 200 ml 1 GM/200 ML BAG IVPB SCH (18:29)
[2016-10-11] MEDS: Piperacillin/Tazobact 3.375 GM in Sodium Chloride 100 ML IVPB SCH (21:16)
[2016-10-12] MEDS: Piperacillin/Tazobact 3.375 GM in Sodium Chloride 100 ML IVPB SCH ×3 (05:19→21:37)
[2016-10-12] MEDS: Vancomycin 1 gm/NS 200 ml 1 GM/200 ML BAG IVPB SCH ×2 (05:20→17:35)
[2016-10-12] MEDS: Oxycodone/Acetaminophen 5/325 mg Tab PO PRN ×2 (06:59→17:32)
--- NOTE | 2016-10-12 07:59 | CARD ---
APPROVED REPORT EKG Measurement Heart [id number] <Conclusion> Sinus tachycardia Possible Left atrial enlargement Inferior infarct, age undetermined Abnormal ECG
[2016-10-12] MEDS: Sodium Chloride 0.9% 1,000 ML IV SCH ×3 (08:00→20:00)
--- NOTE | 2016-10-12 11:01 | CP.PCM.PN ---
Subjective - Date & Time of Evaluation Date of Evaluation: 10/12/16 Time of Evaluation: 06:50 - Subjective Subjective: Vascular Surgery- Dr. Farias Pt S&E at bedside this AM. States abdominal pain is better however still has sharp pain when sitting up, relieved by percocet. tolerating current diet. Patient denies N/V CP/SOB F/C Objective - Vital Signs/Intake and Output Vital Signs (last 24 hours): Temp Pulse Resp BP Pulse Ox 98.8 F 84 16 125/61 98 10/12/16 00:00 10/12/16 00:00 10/12/16 00:00 10/12/16 00:00 10/12/16 00:00 Intake and Output: 10/12/16 10/12/16 06:59 18:59 Intake Total 250 Output Total 200 Balance 50 - Medications Medications: Current Medications Famotidine (Pepcid) 20 mg PO BID [facility] Last Admin: 10/12/16 09:27 Dose: 20 mg Sodium Chloride (Sodium Chloride 0.9%) 1,000 mls @ 75 mls/hr IV .[id number] [facility] Last Admin: 10/12/16 08:00 Dose: Not Given Vancomycin/Sodium Chloride (Vancocin) 1 gm in 200 mls @ 133 mls/hr IVPB Q12H [facility] Stop: 10/16/16 18:01 Last Admin: 10/12/16 05:20 Dose: 133 mls/hr Piperacillin Sod/Tazobactam (Sod 3.375 gm/ Sodium Chloride) 100 mls @ 200 mls/ hr IVPB Q8 [facility] Last Admin: 10/12/16 05:19 Dose: 200 mls/hr Oxycodone/Acetaminophen (Percocet 5/325 Mg Tab) 1 tab PO Q6H PRN PRN Reason: Pain, severe (8-10) Stop: 10/14/16 13:27 Last Admin: 10/12/16 06:59 Dose: 1 tab - Labs Labs: 10/11/16 05:36 10/11/16 05:36 PT 15.0 SECONDS (9.7-12.2) H 10/10/16 08:51 INR 1.3 10/10/16 08:51 APTT 34 SECONDS (21-34) 10/10/16 08:51 Assessment and Plan - Assessment and Plan (Free Text) Assessment: 66M w/ SMA aneurysm s/p coil embolization of SMA branch POD2. Plan: - continue serial abdominal exams - c/w medical management - further recs per Dr. Jarrett Garrison PGY1
[2016-10-12 11:21] LABS: BASO # 0.1 K/uL (0.0-0.2); BASO % 0.6 % (0.0-2.0); EOS # 0.3 K/uL (0.0-0.7); EOS % 2.2 % (0.0-4.0); LYMPH # 1.9 K/uL (1.0-4.3); LYMPH % 16.9 % (20.0-40.0); MEAN CELL VOLUME 79.8 fL (80.0-94.0); MEAN CORPUSCULAR HEMOGLOBIN 26.3 pg (27.0-31.0); MEAN CORPUSCULAR HGB CONC 32.9 g/dL (33.0-37.0); MEAN PLATELET VOLUME 8.8 fL (7.2-11.7); MONO # 0.9 K/uL (0.0-0.8); RED CELL DISTRIBUTION WIDTH 15.7 % (11.5-14.5); WHITE BLOOD COUNT 11.2 K/uL (4.8-10.8)
[2016-10-12 11:28] LABS: ALB/GLOB RATIO 0.7 (1.0-2.1); ALKALINE PHOSPHATASE 60 U/L (38-126); ALT/SGPT 39 U/L (21-72); AST/SGOT 34 U/L (17-59); BILIRUBIN,TOTAL 0.6 mg/dL (0.2-1.3); BLOOD UREA NITROGEN 11 mg/dL (9-20); CALCIUM 9.1 mg/dl (8.6-10.4); CARBON DIOXIDE 24 mmol/L (22-30); CHLORIDE 103 mmol/L (98-107); GFR AFRICAN-AMERICAN > 60; GLUCOSE,RANDOM 107 mg/dL (75-110); PHOSPHOROUS 3.2 mg/dL (2.5-4.5); POTASSIUM 3.8 mmol/L (3.6-5.2); SODIUM 139 mmol/L (132-148); TOTAL PROTEIN 7.4 g/dL (6.3-8.3)
--- NOTE | 2016-10-12 17:43 | CP.PCM.PN ---
<Rahel Busby DO - Last Filed: 10/12/16 17:40> Subjective - Date & Time of Evaluation Date of Evaluation: 10/12/16 Time of Evaluation: 11:20 - Subjective Subjective: Medicine progress note for Dr. Dolan Patient seen and examined. Patient with complaint of lower back pain. He states the percocet helps his abdominal pain but is not as helpful for back pain. Objective - Vital Signs/Intake and Output Vital Signs (last 24 hours): Temp Pulse Resp BP Pulse Ox 98.6 F 88 20 127/61 96 10/12/16 16:00 10/12/16 16:00 10/12/16 16:00 10/12/16 16:00 10/12/16 16:00 Intake and Output: 10/12/16 10/12/16 06:59 18:59 Intake Total 250 1510 Output Total 200 Balance 50 1510 - Medications Medications: Current Medications Famotidine (Pepcid) 20 mg PO BID [facility] Last Admin: 10/12/16 17:32 Dose: 20 mg Sodium Chloride (Sodium Chloride 0.9%) 1,000 mls @ 75 mls/hr IV .[id number] [facility] Last Admin: 10/12/16 12:33 Dose: 75 mls/hr Vancomycin/Sodium Chloride (Vancocin) 1 gm in 200 mls @ 133 mls/hr IVPB Q12H [facility] Stop: 10/16/16 18:01 Last Admin: 10/12/16 17:35 Dose: 133 mls/hr Piperacillin Sod/Tazobactam (Sod 3.375 gm/ Sodium Chloride) 100 mls @ 200 mls/ hr IVPB Q8 [facility] Last Admin: 10/12/16 13:25 Dose: 200 mls/hr Oxycodone/Acetaminophen (Percocet 5/325 Mg Tab) 1 tab PO Q6H PRN PRN Reason: Pain, severe (8-10) Stop: 10/14/16 13:27 Last Admin: 10/12/16 17:32 Dose: 1 tab - Labs Labs: 10/12/16 11:05 10/12/16 11:05 PT 15.0 SECONDS (9.7-12.2) H 10/10/16 08:51 INR 1.3 10/10/16 08:51 APTT 34 SECONDS (21-34) 10/10/16 08:51 - Constitutional Appears: Non-toxic, No Acute Distress - Head Exam Head Exam: ATRAUMATIC, NORMOCEPHALIC - Eye Exam Eye Exam: EOMI - ENT Exam ENT Exam: Mucous Membranes Moist - Respiratory Exam Respiratory Exam: Clear to Ausculation Bilateral, NORMAL BREATHING PATTERN. absent: Rales, Rhonchi, Wheezes - Cardiovascular Exam Cardiovascular Exam: +S1, +S2 - GI/Abdominal Exam GI & Abdominal Exam: Soft, Normal Bowel Sounds. absent: Tenderness - Extremities Exam Extremities Exam: Normal Inspection. absent: Calf Tenderness, Pedal Edema - Neurological Exam Neurological Exam: Alert, Awake - Psychiatric Exam Psychiatric exam: Normal Affect - Skin Skin Exam: Dry, Warm Assessment and Plan - Assessment and Plan (Free Text) Assessment: Mycotic aneurysm * WBC: 11.2 * CT abdomen/pelvis: Interval development of 1.5 x 1.6 cm enhancing focus within the mid abdomen (series 3, image 113) ; surrounding inflammatory changes are noted. This appears to communicate with an arcade branch of the SMA. Finding suspected to reflect mycotic aneurysm. * IR Dr. Meier- pt s/p coil embolization of SMA branch with detachable microcoils, 8 mm, 6 mm, and 4 mm on 10/10 * Vascular surgery consult (Dr. Farias) - pt to go for embolization of aneurysm * NS @ 75ml/hr * F/U blood culture, gram stain gram positive cocci in chains- on vancomycin 1g IV q12h and zosyn 3.375g q8 * ID Dr. Cerda: recommend JASON to r/o endocarditis and GI malignancy Back pain * will get lumbar spine MRI to rule out abscess Tachycardia * EKG: sinus tachycardia, otherwise unremarkable Weight loss * GI consult, Dr. Garrett: * R/O upper GI malignancy, colonoscopy normal 2 years ago * CT does not show pancreas malignancy * Rec: EGD next week or as outpatient * check stool for occult blood Depression * psychiatry consult- Dr. Galvez, help appreciated Prophylaxis * SCDs * Heparin held for vascular procedure * Pepcid 20mg PO BID <Irwin Dolan - Last Filed: 10/13/16 09:13> Objective - Vital Signs/Intake and Output Vital Signs (last 24 hours): Temp Pulse Resp BP Pulse Ox 98.2 F 71 20 129/61 96 10/13/16 07:09 10/13/16 07:09 10/13/16 07:09 10/13/16 07:09 10/13/16 07:09 Intake and Output: 10/13/16 10/13/16 06:59 18:59 Intake Total 1165 Output Total 750 Balance 415 - Medications Medications: Current Medications Famotidine (Pepcid) 20 mg PO BID [facility] Last Admin: 10/12/16 17:32 Dose: 20 mg Sodium Chloride (Sodium Chloride 0.9%) 1,000 mls @ 75 mls/hr IV .[id number] [facility] Last Admin: 10/12/16 20:00 Dose: 75 mls/hr Vancomycin/Sodium Chloride (Vancocin) 1 gm in 200 mls @ 133 mls/hr IVPB Q12H [facility] Stop: 10/16/16 18:01 Last Admin: 10/13/16 06:15 Dose: 133 mls/hr Piperacillin Sod/Tazobactam (Sod 3.375 gm/ Sodium Chloride) 100 mls @ 200 mls/ hr IVPB Q8 [facility] Last Admin: 10/13/16 05:00 Dose: 200 mls/hr Oxycodone/Acetaminophen (Percocet 5/325 Mg Tab) 1 tab PO Q6H PRN PRN Reason: Pain, severe (8-10) Stop: 10/14/16 13:27 Last Admin: 10/13/16 06:40 Dose: 1 tab - Labs Labs: 10/13/16 08:05 10/13/16 08:05 PT 15.0 SECONDS (9.7-12.2) H 10/10/16 08:51 INR 1.3 10/10/16 08:51 APTT 34 SECONDS (21-34) 10/10/16 08:51 Assessment and Plan (1) Aneurysm of mesenteric artery Status: Acute (2) Abdominal pain Status: Acute (3) Bacteremia Status: Acute Attending/Attestation - Attestation I have personally seen and examined this patient.: Yes I have fully participated in the care of the patient.: Yes I have reviewed all pertinent clinical information, including history, physical exam and plan: Yes Notes (Text): 10/13/16 09:11 Patient was examined at bedside Patient complains of abdominal pain although states that it is improving Surgical evaluation seen and appreciated. No surgical intervention needed. GI evaluation seen and appreciated. Patient will need an EGD. ID consultation seen and appreciated. Patient will need a JASON. We have requested cardiology evaluation for possible JASON. Continue antibiotics for bacteremia We will repeat the blood cultures. Psych evaluation is pending. I discussed the plan of care with the resident and agree with the assessment and plan documented.
[2016-10-13] MEDS: Oxycodone/Acetaminophen 5/325 mg Tab PO PRN ×4 (00:45→21:25)
[2016-10-13] MEDS: Piperacillin/Tazobact 3.375 GM in Sodium Chloride 100 ML IVPB SCH ×3 (05:00→21:23)
[2016-10-13] MEDS: Vancomycin 1 gm/NS 200 ml 1 GM/200 ML BAG IVPB SCH ×2 (06:15→17:40)
--- NOTE | 2016-10-13 08:10 | CP.PCM.PCO ---
Physician Communication Note - Physician Communication Note Physician Communication Note: clear for d/c from sx standpoint
[2016-10-13 08:20] LABS: BASO # 0.1 K/uL (0.0-0.2); BASO % 0.6 % (0.0-2.0); EOS # 0.3 K/uL (0.0-0.7); EOS % 3.5 % (0.0-4.0); HEMATOCRIT 29.6 % (35.0-51.0); LYMPH # 1.5 K/uL (1.0-4.3); LYMPH % 18.2 % (20.0-40.0); MEAN CELL VOLUME 79.3 fL (80.0-94.0); MEAN CORPUSCULAR HEMOGLOBIN 26.1 pg (27.0-31.0); MEAN CORPUSCULAR HGB CONC 32.9 g/dL (33.0-37.0); MEAN PLATELET VOLUME 8.5 fL (7.2-11.7); MONO # 0.9 K/uL (0.0-0.8); MONO % 10.1 % (0.0-10.0); RED CELL DISTRIBUTION WIDTH 15.7 % (11.5-14.5); WHITE BLOOD COUNT 8.4 K/uL (4.8-10.8)
[2016-10-13 08:49] LABS: ALB/GLOB RATIO 0.8 (1.0-2.1); ALKALINE PHOSPHATASE 49 U/L (38-126); ALT/SGPT 35 U/L (21-72); AST/SGOT 29 U/L (17-59); BILIRUBIN,TOTAL 0.5 mg/dL (0.2-1.3); BLOOD UREA NITROGEN 9 mg/dL (9-20); CALCIUM 8.9 mg/dl (8.6-10.4); CARBON DIOXIDE 24 mmol/L (22-30); CHLORIDE 104 mmol/L (98-107); GFR AFRICAN-AMERICAN > 60; GLUCOSE,RANDOM 93 mg/dL (75-110); SODIUM 136 mmol/L (132-148); TOTAL PROTEIN 6.5 g/dL (6.3-8.3)
[2016-10-13] MEDS: Sodium Chloride 0.9% 1,000 ML IV SCH (09:45)
[2016-10-13] MEDS ORDERED: Magnesium Hydroxide Susp 30 ml UD PO ONE ×2 (11:18→14:10)
--- NOTE | 2016-10-13 14:25 | CP.PCM.PN ---
<Rahel Busby DO - Last Filed: 10/13/16 14:21> Subjective - Date & Time of Evaluation Date of Evaluation: 10/13/16 Time of Evaluation: 09:00 - Subjective Subjective: Medicine progress note for Dr. Dolan Patient seen and examined. Patient still with complaint of low back pain and abdominal pain. Patient states he is eating well and is trying to move around to get some exercise. Objective - Vital Signs/Intake and Output Vital Signs (last 24 hours): Temp Pulse Resp BP Pulse Ox 98.2 F 71 20 129/61 96 10/13/16 07:09 10/13/16 07:09 10/13/16 07:09 10/13/16 07:09 10/13/16 07:09 Intake and Output: 10/13/16 10/13/16 06:59 18:59 Intake Total 1165 Output Total 750 Balance 415 - Medications Medications: Current Medications Famotidine (Pepcid) 20 mg PO BID [facility] Last Admin: 10/13/16 10:41 Dose: 20 mg Sodium Chloride (Sodium Chloride 0.9%) 1,000 mls @ 75 mls/hr IV .[id number] [facility] Last Admin: 10/13/16 09:45 Dose: 75 mls/hr Vancomycin/Sodium Chloride (Vancocin) 1 gm in 200 mls @ 133 mls/hr IVPB Q12H [facility] Stop: 10/16/16 18:01 Last Admin: 10/13/16 06:15 Dose: 133 mls/hr Piperacillin Sod/Tazobactam (Sod 3.375 gm/ Sodium Chloride) 100 mls @ 200 mls/ hr IVPB Q8 [facility] Last Admin: 10/13/16 14:11 Dose: 200 mls/hr Oxycodone/Acetaminophen (Percocet 5/325 Mg Tab) 1 tab PO Q6H PRN PRN Reason: Pain, severe (8-10) Stop: 10/14/16 13:27 Last Admin: 10/13/16 06:40 Dose: 1 tab - Labs Labs: 10/13/16 08:05 10/13/16 08:05 PT 15.0 SECONDS (9.7-12.2) H 10/10/16 08:51 INR 1.3 10/10/16 08:51 APTT 34 SECONDS (21-34) 10/10/16 08:51 - Constitutional Appears: Non-toxic, No Acute Distress - Head Exam Head Exam: ATRAUMATIC, NORMOCEPHALIC - Eye Exam Eye Exam: EOMI - ENT Exam ENT Exam: Mucous Membranes Moist - Respiratory Exam Respiratory Exam: Clear to Ausculation Bilateral, NORMAL BREATHING PATTERN - Cardiovascular Exam Cardiovascular Exam: +S1, +S2 - GI/Abdominal Exam GI & Abdominal Exam: Soft, Tenderness (lower abdomen), Normal Bowel Sounds - Exam Additional comments: right groin surgical site clean and dry, no hematoma - Extremities Exam Extremities Exam: Normal Inspection. absent: Pedal Edema - Neurological Exam Neurological Exam: Alert, Awake - Psychiatric Exam Psychiatric exam: Normal Affect - Skin Skin Exam: Dry, Warm Assessment and Plan - Assessment and Plan (Free Text) Assessment: Mycotic aneurysm * WBC: 8.4 * IR Dr. Meier- pt s/p coil embolization of SMA branch with detachable microcoils, 8 mm, 6 mm, and 4 mm on 10/10/16 * Vascular surgery consult (Dr. Farias) - pt to go for embolization of aneurysm * CT abdomen/pelvis: Interval development of 1.5 x 1.6 cm enhancing focus within the mid abdomen (series 3, image 113) ; surrounding inflammatory changes are noted. This appears to communicate with an arcade branch of the SMA. Finding suspected to reflect mycotic aneurysm. * NS @ 75ml/hr * blood culture positive enterococcus faecaelis- vancomycin 1g IV q12h and zosyn 3.375g q8 * ID Dr. Cerda: recommend JASON to r/o endocarditis and GI malignancy Blood cultures positive * blood cultures positive for enterococcus faecalis, sensitive to cipro EMILY 0.5 * will repeat cultures tomorrow * Dr. Whitehead consulted for JASON- help appreciated Back pain * will get lumbar spine MRI to rule out abscess Tachycardia * EKG: sinus tachycardia, otherwise unremarkable Weight loss * GI consult, Dr. Garrett: * R/O upper GI malignancy, colonoscopy normal 2 years ago * CT does not show pancreas malignancy * Rec: EGD next week or as outpatient * check stool for occult blood- results pending Depression * psychiatry consult- Dr. Galvez, help appreciated Prophylaxis * SCDs * lovenox 40mg sc daily * Pepcid 20mg PO BID * PT <Irwin Dolan - Last Filed: 10/13/16 15:04> Objective - Vital Signs/Intake and Output Vital Signs (last 24 hours): Temp Pulse Resp BP Pulse Ox 98.2 F 71 20 129/61 96 10/13/16 07:09 10/13/16 07:09 10/13/16 07:09 10/13/16 07:09 10/13/16 07:09 Intake and Output: 10/13/16 10/13/16 06:59 18:59 Intake Total 1165 Output Total 750 Balance 415 - Medications Medications: Current Medications Enoxaparin Sodium (Lovenox) 40 mg SC DAILY [facility] Famotidine (Pepcid) 20 mg PO BID [facility] Last Admin: 10/13/16 10:41 Dose: 20 mg Sodium Chloride (Sodium Chloride 0.9%) 1,000 mls @ 75 mls/hr IV .[id number] [facility] Last Admin: 10/13/16 09:45 Dose: 75 mls/hr Vancomycin/Sodium Chloride (Vancocin) 1 gm in 200 mls @ 133 mls/hr IVPB Q12H [facility] Stop: 10/16/16 18:01 Last Admin: 10/13/16 06:15 Dose: 133 mls/hr Piperacillin Sod/Tazobactam (Sod 3.375 gm/ Sodium Chloride) 100 mls @ 200 mls/ hr IVPB Q8 [facility] Last Admin: 10/13/16 14:11 Dose: 200 mls/hr Oxycodone/Acetaminophen (Percocet 5/325 Mg Tab) 1 tab PO Q6H PRN PRN Reason: Pain, severe (8-10) Stop: 10/14/16 13:27 Last Admin: 10/13/16 12:15 Dose: 1 tab - Labs Labs: 10/13/16 08:05 10/13/16 08:05 PT 15.0 SECONDS (9.7-12.2) H 10/10/16 08:51 INR 1.3 10/10/16 08:51 APTT 34 SECONDS (21-34) 10/10/16 08:51 Assessment and Plan (1) Aneurysm of mesenteric artery Status: Acute (2) Abdominal pain Status: Acute (3) Bacteremia Status: Acute Attending/Attestation - Attestation I have personally seen and examined this patient.: Yes I have fully participated in the care of the patient.: Yes I have reviewed all pertinent clinical information, including history, physical exam and plan: Yes Notes (Text): 10/13/16 15:02 Patient seen and examined at bedside with the resident. Still complains of abdominal pain. Also complains of low back pain. We will obtain an MRI of the lumbar spine. Patient also needs a JASON to rule out infective endocarditis. We have requested cardiology consultation for the purpose of obtaining a JASON. Continue antibiotics as per recommendations of ID. Patient is status post coil embolization of the SMA aneurysm. He has been cleared by surgery for discharge. However patient still needs workup for bacteremia. I discussed the plan of care with the resident and agree with the assessment and plan documented.
--- NOTE | 2016-10-13 15:45 | CP.PCM.PN ---
Subjective - Date & Time of Evaluation Date of Evaluation: 10/13/16 Time of Evaluation: 08:00 - Subjective Subjective: iv rx in progress for JASON Objective - Vital Signs/Intake and Output Vital Signs (last 24 hours): Temp Pulse Resp BP Pulse Ox 98.2 F 71 20 129/61 96 10/13/16 07:09 10/13/16 07:09 10/13/16 07:09 10/13/16 07:09 10/13/16 07:09 Intake and Output: 10/13/16 10/13/16 06:59 18:59 Intake Total 1165 Output Total 750 Balance 415 - Medications Medications: Current Medications Enoxaparin Sodium (Lovenox) 40 mg SC DAILY [facility] Famotidine (Pepcid) 20 mg PO BID [facility] Last Admin: 10/13/16 10:41 Dose: 20 mg Sodium Chloride (Sodium Chloride 0.9%) 1,000 mls @ 75 mls/hr IV .[id number] [facility] Last Admin: 10/13/16 09:45 Dose: 75 mls/hr Vancomycin/Sodium Chloride (Vancocin) 1 gm in 200 mls @ 133 mls/hr IVPB Q12H [facility] Stop: 10/16/16 18:01 Last Admin: 10/13/16 06:15 Dose: 133 mls/hr Piperacillin Sod/Tazobactam (Sod 3.375 gm/ Sodium Chloride) 100 mls @ 200 mls/ hr IVPB Q8 [facility] Last Admin: 10/13/16 14:11 Dose: 200 mls/hr Oxycodone/Acetaminophen (Percocet 5/325 Mg Tab) 1 tab PO Q6H PRN PRN Reason: Pain, severe (8-10) Stop: 10/14/16 13:27 Last Admin: 10/13/16 12:15 Dose: 1 tab - Labs Labs: 10/13/16 08:05 10/13/16 08:05 PT 15.0 SECONDS (9.7-12.2) H 10/10/16 08:51 INR 1.3 10/10/16 08:51 APTT 34 SECONDS (21-34) 10/10/16 08:51 - Constitutional Appears: Non-toxic, Chronically Ill - Head Exam Head Exam: NORMOCEPHALIC - Eye Exam Eye Exam: PERRL. absent: Scleral icterus - ENT Exam ENT Exam: Mucous Membranes Dry - Neck Exam Neck Exam: absent: Lymphadenopathy - Respiratory Exam Respiratory Exam: Decreased Breath Sounds - Cardiovascular Exam Cardiovascular Exam: REGULAR RHYTHM - GI/Abdominal Exam GI & Abdominal Exam: Soft, Diminished Bowel Sounds. absent: Tenderness - Rectal Exam Rectal Exam: Deferred - Exam Exam: NORMAL INSPECTION Assessment and Plan (1) Iron deficiency anemia Status: Acute (2) Mycotic aneurysm Status: Acute (3) Weight loss Status: Acute (4) Abdominal pain Status: Acute (5) Constipation Status: Acute (6) Low back pain Status: Acute (7) Vertigo Status: Acute - Assessment and Plan (Free Text) Assessment: r/o endocarditis s/p mycotic aneurysm
--- NOTE | 2016-10-13 20:33 | CP.PCM.CON ---
History of Present Illness - History of Present Illness History of Present Illness: Reason For Consultation: Endocarditis/JASON HPI: Patient is a 66 y/o M with PMH arthritis and vertigo who presents to [facility] with mid lower abdominal and low back pain for the past one month. Further work up revealed Mycotic aneurysm, Positive blood cultures suggestive of endocarditis. 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 absent: Bruit, Distended, Pulsatile Mass - Extremities Exam Extremities exam: Positive for: normal inspection, pedal pulses present. Negative for: pedal edema - Back Exam Back exam: NORMAL INSPECTION. absent: tenderness - Neurological Exam Neurological exam: Alert, Oriented x3 - Psychiatric Exam Psychiatric exam: Normal Affect, Normal Mood - Skin Skin Exam: Dry, Intact, Warm Review of Systems - Constitutional Constitutional: absent: As Per HPI, Anorexia, Chills, Daytime Sleepiness, Excessive Sweating, Fatigue, Fever, Frequent Falls, Headache, Increased Appetite , Lethargy, Malaise, Night Sweats, Snoring, Sleep Apnea, Weight Gain, Weight Loss, Weakness, Other - EENT Eyes: absent: As Per HPI, Blind Spots, Blurred Vision, Change in Vision, Decreased Night Vision, Diplopia, Discharge, Dry Eye, Exophthalmos, Floaters, Irritation, Itchy Eyes, Loss of Peripheral Vision, Pain, Photophobia, Requires Corrective Lenses, Sees Flashes, Spots in Vision, Tunnel Vision, Other Visual Disturbances, Loss of Vision, Other Ears: absent: As Per HPI, Decreased Hearing, Ear Discharge, Ear Pain, Tinnitus, Abnormal Hearing, Disequilibrium, Dizziness, Other Nose/Mouth/Throat: absent: As Per HPI, Epistaxis, Nasal Congestion, Nasal Discharge, Nasal Obstruction, Nasal Trauma, Nose Pain, Post Nasal Drip, Sinus Pain, Sinus Pressure, Bleeding Gums, Change in Voice, Dental Pain, Dry Mouth, Dysphagia, Halitosis, Hoarsness, Lip Swelling, Mouth Lesions, Mouth Pain, Odynophagia, Sore Throat, Throat Swelling, Tongue Swelling, Facial Pain, Neck Pain, Neck Mass, Other - Cardiovascular Cardiovascular: absent: As Per HPI, Acrocyanosis, Chest Pain, Chest Pain at Rest , Chest Pain with Activity, Claudication, Diaphoresis, Dyspnea, Dyspnea on Exertion, Edema, Irregular Heart Rhythm, Pain Radiating to Arm/Neck/Jaw, Leg Edema, Leg Ulcers, Lightheadedness, Orthopnea, Palpitations, Paroxysmal Nocturnal Dyspnea, Pedal Edema, Radiating Pain, Rapid Heart Rate, Slow Heart Rate, Syncope, Other - Respiratory Respiratory: absent: As Per HPI, Cough, Dyspnea, Hemoptysis, Dyspnea on Exertion , Wheezing, Snoring, Stridor, Pain on Inspiration, Chest Congestion, Excessive Mucous Production, Change in Mucous Color, Pain with Coughing, Other - Gastrointestinal Gastrointestinal: absent: As Per HPI, Abdominal Pain, Belching, Bloating, Change in Bowel Habits, Change in Stool Character, Coffee Ground Emesis, Constipation, Cramping, Diarrhea, Dyspepsia, Dysphagia, Early Satiety, Excessive Flatus, Fecal Incontinence, Heartburn, Hematemesis, Hematochezia, Loose Stools, Melena, Nausea, Odynophagia, Temesmus, Vomiting, Other - Neurological Neurological: absent: As Per HPI, Abnormal Gait, Abnormal Hearing, Abnormal Movements, Abnormal Speech, Behavioral Changes, Burning Sensations, Confusion, Convulsions, Disequilibrium, Dizziness, Numbness, Focal Weakness, Frequent Falls , Headaches, Lack of Coordination, Loss of Vision, Memory Loss, Paresthesias, Radicular Pain, Restless Legs, Sensory Deficit, Syncope, Tingling, Tremor, Vertigo, Weakness, Other Visual Disturbances, Other - Psychiatric Psychiatric: absent: As Per HPI, Abnormal Sleep Pattern, Anhedonia, Anxiety, Auditory Hallucinations, Behavioral Changes, Change in Appetite, Change in Libido, Confusion, Depression, Difficulty Concentrating, Hallucinations, Homicidal Ideation, Hopelessness, Irritability, Memory Loss, Mood Swings, Panic Attacks, Paranoia, Suicidal Ideation, Visual Hallucinations, Tactile Hallucinations, Other - Hematologic/Lymphatic Hematologic: absent: As Per HPI, Easy Bleeding, Easy Bruising, Lymphadenopathy, Other Past Patient History - Infectious Disease Hx of Infectious Diseases: None - Past Medical History & Family History Past Medical History?: Yes - Past Social History Smoking Status: Never Smoked - CARDIAC Hx Cardiac Disorders: No - PULMONARY Hx Respiratory Disorders: No - NEUROLOGICAL Hx Neurological Disorder: Yes Hx Dizziness: Yes Hx Vertigo: Yes - HEENT Hx HEENT Problems: Yes (SEASONAL ALLERGIES) - RENAL Hx Chronic Kidney Disease: No - ENDOCRINE/METABOLIC Hx Endocrine Disorders: No - HEMATOLOGICAL/ONCOLOGICAL Hx Blood Disorders: No - INTEGUMENTARY Hx Dermatological Problems: No - MUSCULOSKELETAL/RHEUMATOLOGICAL Hx Musculoskeletal Disorders: Yes Hx Back Pain: Yes - GASTROINTESTINAL Hx Gastrointestinal Disorders: Yes (SEE COMMENT) Hx Constipation: Yes Hx Diverticulitis: No (DIVERTICULOSIS) Other/Comment: NEOPLASM LARGE BOWEL - GENITOURINARY/GYNECOLOGICAL Hx Genitourinary Disorders: No - PSYCHIATRIC Hx Substance Use: No - SURGICAL HISTORY Hx Tonsillectomy: Yes - ANESTHESIA Hx Anesthesia: Yes Hx Anesthesia Reactions: No Hx Malignant Hyperthermia: No Has any member of the family had a problem w/ anesthesia?: No Meds Allergies/Adverse Reactions: Allergies Allergy/AdvReac Type Severity Reaction Status Date / Time mushroom Allergy Verified 10/10/16 08:14 - Medications Medications: Current Medications Enoxaparin Sodium (Lovenox) 40 mg SC DAILY [facility] Famotidine (Pepcid) 20 mg PO BID [facility] Last Admin: 10/13/16 17:41 Dose: 20 mg Vancomycin/Sodium Chloride (Vancocin) 1 gm in 200 mls @ 133 mls/hr IVPB Q12H [facility] Stop: 10/16/16 18:01 Last Admin: 10/13/16 17:40 Dose: 133 mls/hr Piperacillin Sod/Tazobactam (Sod 3.375 gm/ Sodium Chloride) 100 mls @ 200 mls/ hr IVPB Q8 [facility] Last Admin: 10/13/16 14:11 Dose: 200 mls/hr Oxycodone/Acetaminophen (Percocet 5/325 Mg Tab) 1 tab PO Q6H PRN PRN Reason: Pain, severe (8-10) Stop: 10/14/16 13:27 Last Admin: 10/13/16 12:15 Dose: 1 tab Results - Vital Signs Recent Vital Signs: Last Vital Signs Temp 98.4 F 10/13/16 17:10 Pulse 82 10/13/16 17:10 Resp 20 10/13/16 17:10 BP 126/62 10/13/16 17:10 Pulse Ox 96 10/13/16 17:10 - Labs Result Diagrams: 10/13/16 08:05 10/13/16 08:05 Labs: Laboratory Results - last 24 hr 10/13/16 10/13/16 08:05 08:05 WBC 8.4 RBC 3.73 L Hgb 9.7 L Hct 29.6 L MCV 79.3 L MCH 26.1 L MCHC 32.9 L RDW 15.7 H Plt Count 372 MPV 8.5 Neut % (Auto) 67.6 Lymph % (Auto) 18.2 L [place] % (Auto) 10.1 H Eos % (Auto) 3.5 Baso % (Auto) 0.6 Neut # 5.7 Lymph # 1.5 [place] # 0.9 H Eos # 0.3 Baso # 0.1 Sodium 136 Potassium 4.0 Chloride 104 Carbon Dioxide 24 Anion Gap 12 BUN 9 Creatinine 0.7 L Est GFR ( Amer) > 60 Est GFR (Non-Af Amer) > 60 Random Glucose 93 Calcium 8.9 Total Bilirubin 0.5 AST 29 ALT 35 Alkaline Phosphatase 49 Total Protein 6.5 Albumin 2.8 L Globulin 3.7 Albumin/Globulin Ratio 0.8 L Assessment & Plan - Assessment and Plan (Free Text) Assessment: 1. Bacteremia with positive blood cultures 2. Mycotic aneurysm 3. Weight loss 4. HTN For JASON r/o Endocarditis on Friday. D/W Patient
[2016-10-14] MEDS: Piperacillin/Tazobact 3.375 GM in Sodium Chloride 100 ML IVPB SCH ×3 (05:00→21:44)
[2016-10-14] MEDS: Vancomycin 1 gm/NS 200 ml 1 GM/200 ML BAG IVPB SCH ×2 (05:26→17:01)
[2016-10-14] MEDS: Oxycodone/Acetaminophen 5/325 mg Tab PO PRN ×3 (05:50→22:18)
[2016-10-14 07:23] LABS: BASO % 0.4 % (0.0-2.0); EOS # 0.3 K/uL (0.0-0.7); HEMATOCRIT 29.1 % (35.0-51.0); LYMPH # 1.7 K/uL (1.0-4.3); LYMPH % 20.1 % (20.0-40.0); MEAN CELL VOLUME 79.7 fL (80.0-94.0); MEAN CORPUSCULAR HEMOGLOBIN 26.4 pg (27.0-31.0); MEAN CORPUSCULAR HGB CONC 33.1 g/dL (33.0-37.0); MEAN PLATELET VOLUME 8.8 fL (7.2-11.7); MONO # 0.7 K/uL (0.0-0.8); RED CELL DISTRIBUTION WIDTH 15.6 % (11.5-14.5); WHITE BLOOD COUNT 8.3 K/uL (4.8-10.8)
[2016-10-14 07:46] LABS: ALB/GLOB RATIO 0.7 (1.0-2.1); ALKALINE PHOSPHATASE 54 U/L (38-126); ALT/SGPT 41 U/L (21-72); AST/SGOT 37 U/L (17-59); BILIRUBIN,TOTAL 0.7 mg/dL (0.2-1.3); BLOOD UREA NITROGEN 8 mg/dL (9-20); CALCIUM 8.9 mg/dl (8.6-10.4); CARBON DIOXIDE 26 mmol/L (22-30); CHLORIDE 102 mmol/L (98-107); GFR AFRICAN-AMERICAN > 60; GLUCOSE,RANDOM 89 mg/dL (75-110); POTASSIUM 3.9 mmol/L (3.6-5.2); SODIUM 140 mmol/L (132-148); TOTAL PROTEIN 6.9 g/dL (6.3-8.3)
--- NOTE | 2016-10-14 08:34 | CP.PCM.PN ---
<Waqar Simon - Last Filed: 10/14/16 11:11> Subjective - Date & Time of Evaluation Date of Evaluation: 10/14/16 Time of Evaluation: 08:31 - Subjective Subjective: PGY [address] Chilel HPI: Patient seen and examined at bedside. Doing well. States no one has come to walk him around yet. I told Him i would call PT and if they didnt come i would walk him myself. Patient has minimal pain when he sits up at [facility] site. Back pain he contributes to a fall years prior. Denies any numbness or weakness in the arms or legs. 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 Understands that he is going for an MRI today and a JASON tomorrow. Tolerating diet. Denies CP, SOB, N/V/D. Objective - Vital Signs/Intake and Output Vital Signs (last 24 hours): Temp Pulse Resp BP Pulse Ox 98.1 F 73 20 136/65 94 L 10/14/16 07:05 10/14/16 07:05 10/14/16 07:05 10/14/16 07:05 10/14/16 07:05 Intake and Output: 10/14/16 10/14/16 06:59 18:59 Intake Total 1100 620 Balance 1100 620 - Medications Medications: Current Medications Enoxaparin Sodium (Lovenox) 40 mg SC DAILY [facility] Famotidine (Pepcid) 20 mg PO BID [facility] Last Admin: 10/13/16 17:41 Dose: 20 mg Vancomycin/Sodium Chloride (Vancocin) 1 gm in 200 mls @ 133 mls/hr IVPB Q12H [facility] Stop: 10/16/16 18:01 Last Admin: 10/14/16 05:26 Dose: 133 mls/hr Piperacillin Sod/Tazobactam (Sod 3.375 gm/ Sodium Chloride) 100 mls @ 200 mls/ hr IVPB Q8 [facility] Last Admin: 10/14/16 05:00 Dose: 200 mls/hr Oxycodone/Acetaminophen (Percocet 5/325 Mg Tab) 1 tab PO Q6H PRN PRN Reason: Pain, severe (8-10) Stop: 10/14/16 13:27 Last Admin: 10/14/16 05:50 Dose: 1 tab - Labs Labs: 10/14/16 07:08 10/14/16 07:08 PT 15.0 SECONDS (9.7-12.2) H 10/10/16 08:51 INR 1.3 10/10/16 08:51 APTT 34 SECONDS (21-34) 10/10/16 08:51 - Constitutional Appears: Well, Non-toxic, No Acute Distress - Head Exam Head Exam: ATRAUMATIC, NORMAL INSPECTION, NORMOCEPHALIC - Eye Exam Eye Exam: EOMI Pupil Exam: NORMAL ACCOMODATION - ENT Exam ENT Exam: Mucous Membranes Moist - Respiratory Exam Respiratory Exam: Clear to Ausculation Bilateral - Cardiovascular Exam Cardiovascular Exam: REGULAR RHYTHM - GI/Abdominal Exam GI & Abdominal Exam: Soft, Normal Bowel Sounds. absent: Distended, Tenderness Additional comments: R. fem site clean, dry, intact - Extremities Exam Extremities Exam: absent: Joint Swelling, Tenderness - Neurological Exam Neurological Exam: Alert, Awake, Oriented x3 - Psychiatric Exam Psychiatric exam: Normal Affect, Normal Mood - Skin Skin Exam: Dry, Intact, Normal Color, Warm Assessment and Plan - Assessment and Plan (Free Text) Assessment: Mycotic aneurysm * WBC: 8.3 * IR Dr. Meier- pt s/p coil embolization of SMA branch with detachable microcoils, 8 mm, 6 mm, and 4 mm on 10/10/16 * Vascular surgery consult (Dr. Farias) - embolization of aneurysm * CT abdomen/pelvis: Interval development of 1.5 x 1.6 cm enhancing focus within the mid abdomen (series 3, image 113) ; surrounding inflammatory changes are noted. This appears to communicate with an arcade branch of the SMA. Finding suspected to reflect mycotic aneurysm. * NS @ 75ml/hr * blood culture positive enterococcus faecaelis- vancomycin 1g IV q12h and zosyn 3.375g q8 * Cards ([facility]) - JASON tomorrow Blood cultures positive * blood cultures positive for enterococcus faecalis, sensitive to cipro EMILY 0.5 * F/U BC Back pain * F/U MRI to rule out abscess Tachycardia * EKG: sinus tachycardia, otherwise unremarkable Weight loss * GI consult, Dr. Garrett: * R/O upper GI malignancy, colonoscopy normal 2 years ago * CT does not show pancreas malignancy * Rec: EGD next week or as outpatient * check stool for occult blood- results pending Depression * psychiatry consult- Dr. Galvez, help appreciated Constipation * Colace 100 BID Prophylaxis * SCDs * lovenox 40mg sc daily * Pepcid 20mg PO BID * PT <Samy Chilel H - Last Filed: 10/14/16 12:39> Objective - Vital Signs/Intake and Output Vital Signs (last 24 hours): Temp Pulse Resp BP Pulse Ox 98.1 F 73 20 136/65 94 L 10/14/16 07:05 10/14/16 07:05 10/14/16 07:05 10/14/16 07:05 10/14/16 07:05 Intake and Output: 10/14/16 10/14/16 06:59 18:59 Intake Total 1100 620 Balance 1100 620 - Medications Medications: Current Medications Docusate Sodium (Colace) 100 mg PO BID [facility] Last Admin: 10/14/16 12:07 Dose: 100 mg Enoxaparin Sodium (Lovenox) 40 mg SC DAILY [facility] Last Admin: 10/14/16 10:13 Dose: 40 mg Famotidine (Pepcid) 20 mg PO BID [facility] Last Admin: 10/14/16 10:13 Dose: 20 mg Vancomycin/Sodium Chloride (Vancocin) 1 gm in 200 mls @ 133 mls/hr IVPB Q12H [facility] 234 [facility] Stop: 10/16/16 18:01 Last Admin: 10/14/16 05:26 Dose: 133 mls/hr Piperacillin Sod/Tazobactam (Sod 3.375 gm/ Sodium Chloride) 100 mls @ 200 mls/ hr IVPB Q8 [facility] 234 [facility] Last Admin: 10/14/16 05:00 Dose: 200 mls/hr Oxycodone/Acetaminophen (Percocet 5/325 Mg Tab) 1 tab PO Q6H PRN PRN Reason: Pain, severe (8-10) Stop: 10/14/16 13:27 Last Admin: 10/14/16 12:04 Dose: 1 tab - Labs Labs: 10/14/16 07:08 10/14/16 07:08 PT 15.0 SECONDS (9.7-12.2) H 10/10/16 08:51 INR 1.3 10/10/16 08:51 APTT 34 SECONDS (21-34) 10/10/16 08:51 Attending/Attestation - Attestation I have personally seen and examined this patient.: Yes I have fully participated in the care of the patient.: Yes I have reviewed all pertinent clinical information, including history, physical exam and plan: Yes Notes (Text): 10/14/16 12:37 Medical Attending: Patient was seen and examined by me as well. Agree with the above note by the resident. When we saw patient he was not in any acute distress or concerns Patient had a + blood culture for enteroocus faecalis and is currently on IV abx. There is pending a JASON to assess for potential edocarditis as well as MRI of LS to assess for abcess thank you Samy Chilel
--- NOTE | 2016-10-14 09:04 | CP.PCM.PN ---
Subjective - Date & Time of Evaluation Date of Evaluation: 10/14/16 Time of Evaluation: 09:01 - Subjective Subjective: CC: Follow up weight loss Events noted- blood cultures positive for Enterococcus fecalis, strong suspicion for endocarditis and abdominal aortic mycotic aneurysm. Appetite fair. +weight loss Objective - Vital Signs/Intake and Output Vital Signs (last 24 hours): Temp Pulse Resp BP Pulse Ox 98.1 F 73 20 136/65 94 L 10/14/16 07:05 10/14/16 07:05 10/14/16 07:05 10/14/16 07:05 10/14/16 07:05 Intake and Output: 10/14/16 10/14/16 06:59 18:59 Intake Total 1100 620 Balance 1100 620 - Medications Medications: Current Medications Enoxaparin Sodium (Lovenox) 40 mg SC DAILY [facility] Famotidine (Pepcid) 20 mg PO BID [facility] Last Admin: 10/13/16 17:41 Dose: 20 mg Vancomycin/Sodium Chloride (Vancocin) 1 gm in 200 mls @ 133 mls/hr IVPB Q12H [facility] Stop: 10/16/16 18:01 Last Admin: 10/14/16 05:26 Dose: 133 mls/hr Piperacillin Sod/Tazobactam (Sod 3.375 gm/ Sodium Chloride) 100 mls @ 200 mls/ hr IVPB Q8 [facility] Last Admin: 10/14/16 05:00 Dose: 200 mls/hr Oxycodone/Acetaminophen (Percocet 5/325 Mg Tab) 1 tab PO Q6H PRN PRN Reason: Pain, severe (8-10) Stop: 10/14/16 13:27 Last Admin: 10/14/16 05:50 Dose: 1 tab - Labs Labs: 10/14/16 07:08 10/14/16 07:08 PT 15.0 SECONDS (9.7-12.2) H 10/10/16 08:51 INR 1.3 10/10/16 08:51 APTT 34 SECONDS (21-34) 10/10/16 08:51 - Constitutional Appears: Well, No Acute Distress - Head Exam Head Exam: NORMOCEPHALIC - Neck Exam Neck Exam: Normal Inspection - GI/Abdominal Exam GI & Abdominal Exam: Soft. absent: Tenderness Assessment and Plan (1) Weight loss Assessment & Plan: Had colonoscopy 2 years ago. Iron deficient- R/O Upper GI neoplasm. Needs EGD but in light of possible endocarditis will defer for now, pending results of JASON. Status: Acute (2) Iron deficiency anemia Status: Acute
[2016-10-14] MEDS: Enoxaparin 40 mg Syringe SC SCH (10:13)
--- NOTE | 2016-10-14 20:58 | CP.PCM.PN ---
Subjective - Date & Time of Evaluation Date of Evaluation: 10/14/16 Time of Evaluation: 18:10 - Subjective Subjective: Patient seen and evaluated Denies chest pain and dyspnea Physical Exam - Constitutional Appears: Non-toxic, No Acute Distress - Head Exam Head Exam: NORMAL INSPECTION - Eye Exam Eye Exam: EOMI - ENT Exam ENT Exam: Mucous Membranes Dry - Respiratory Exam Respiratory Exam: Clear to Auscultation Bilateral, NORMAL BREATHING PATTERN - Cardiovascular Exam Cardiovascular Exam: Tachycardia, REGULAR RHYTHM, +S1, +S2 - GI/Abdominal Exam GI & Abdominal Exam: Normal Bowel Sounds, Soft, Tenderness (infraumbilical ). absent: Bruit, Distended, Pulsatile Mass - Extremities Exam Extremities exam: Positive for: normal inspection, pedal pulses present. Negative for: pedal edema - Back Exam Back exam: NORMAL INSPECTION. absent: tenderness - Neurological Exam Neurological exam: Alert, Oriented x3 - Psychiatric Exam Psychiatric exam: Normal Affect, Normal Mood - Skin Skin Exam: Dry, Intact, Warm Review of Systems - Constitutional Constitutional: absent: As Per HPI, Anorexia, Chills, Daytime Sleepiness, Excessive Sweating, Fatigue, Fever, Frequent Falls, Headache, Increased Appetite , Lethargy, Malaise, Night Sweats, Snoring, Sleep Apnea, Weight Gain, Weight Loss, Weakness, Other - EENT Eyes: absent: As Per HPI, Blind Spots, Blurred Vision, Change in Vision, Decreased Night Vision, Diplopia, Discharge, Dry Eye, Exophthalmos, Floaters, Irritation, Itchy Eyes, Loss of Peripheral Vision, Pain, Photophobia, Requires Corrective Lenses, Sees Flashes, Spots in Vision, Tunnel Vision, Other Visual Disturbances, Loss of Vision, Other Ears: absent: As Per HPI, Decreased Hearing, Ear Discharge, Ear Pain, Tinnitus, Abnormal Hearing, Disequilibrium, Dizziness, Other Nose/Mouth/Throat: absent: As Per HPI, Epistaxis, Nasal Congestion, Nasal Discharge, Nasal Obstruction, Nasal Trauma, Nose Pain, Post Nasal Drip, Sinus Pain, Sinus Pressure, Bleeding Gums, Change in Voice, Dental Pain, Dry Mouth, Dysphagia, Halitosis, Hoarsness, Lip Swelling, Mouth Lesions, Mouth Pain, Odynophagia, Sore Throat, Throat Swelling, Tongue Swelling, Facial Pain, Neck Pain, Neck Mass, Other - Cardiovascular Cardiovascular: absent: As Per HPI, Acrocyanosis, Chest Pain, Chest Pain at Rest , Chest Pain with Activity, Claudication, Diaphoresis, Dyspnea, Dyspnea on Exertion, Edema, Irregular Heart Rhythm, Pain Radiating to Arm/Neck/Jaw, Leg Edema, Leg Ulcers, Lightheadedness, Orthopnea, Palpitations, Paroxysmal Nocturnal Dyspnea, Pedal Edema, Radiating Pain, Rapid Heart Rate, Slow Heart Rate, Syncope, Other - Respiratory Respiratory: absent: As Per HPI, Cough, Dyspnea, Hemoptysis, Dyspnea on Exertion , Wheezing, Snoring, Stridor, Pain on Inspiration, Chest Congestion, Excessive Mucous Production, Change in Mucous Color, Pain with Coughing, Other - Gastrointestinal Gastrointestinal: absent: As Per HPI, Abdominal Pain, Belching, Bloating, Change in Bowel Habits, Change in Stool Character, Coffee Ground Emesis, Constipation, Cramping, Diarrhea, Dyspepsia, Dysphagia, Early Satiety, Excessive Flatus, Fecal Incontinence, Heartburn, Hematemesis, Hematochezia, Loose Stools, Melena, Nausea, Odynophagia, Temesmus, Vomiting, Other - Neurological Neurological: absent: As Per HPI, Abnormal Gait, Abnormal Hearing, Abnormal Movements, Abnormal Speech, Behavioral Changes, Burning Sensations, Confusion, Convulsions, Disequilibrium, Dizziness, Numbness, Focal Weakness, Frequent Falls , Headaches, Lack of Coordination, Loss of Vision, Memory Loss, Paresthesias, Radicular Pain, Restless Legs, Sensory Deficit, Syncope, Tingling, Tremor, Vertigo, Weakness, Other Visual Disturbances, Other - Psychiatric Psychiatric: absent: As Per HPI, Abnormal Sleep Pattern, Anhedonia, Anxiety, Auditory Hallucinations, Behavioral Changes, Change in Appetite, Change in Libido, Confusion, Depression, Difficulty Concentrating, Hallucinations, Homicidal Ideation, Hopelessness, Irritability, Memory Loss, Mood Swings, Panic Attacks, Paranoia, Suicidal Ideation, Visual Hallucinations, Tactile Hallucinations, Other - Hematologic/Lymphatic Hematologic: absent: As Per HPI, Easy Bleeding, Easy Bruising, Lymphadenopathy, Other Objective - Vital Signs/Intake and Output Vital Signs (last 24 hours): Temp Pulse Resp BP Pulse Ox 98.1 F 77 20 147/61 95 10/14/16 15:00 10/14/16 15:00 10/14/16 15:00 10/14/16 15:00 10/14/16 15:00 Intake and Output: 10/14/16 10/15/16 18:59 06:59 Intake Total 1220 Balance 1220 - Medications Medications: Current Medications Docusate Sodium (Colace) 100 mg PO BID [facility] Last Admin: 10/14/16 17:01 Dose: 100 mg Enoxaparin Sodium (Lovenox) 40 mg SC DAILY [facility] Last Admin: 10/14/16 10:13 Dose: 40 mg Famotidine (Pepcid) 20 mg PO BID [facility] Last Admin: 10/14/16 17:01 Dose: 20 mg Vancomycin/Sodium Chloride (Vancocin) 1 gm in 200 mls @ 133 mls/hr IVPB Q12H [facility] Stop: 10/16/16 18:01 Last Admin: 10/14/16 17:01 Dose: 133 mls/hr Piperacillin Sod/Tazobactam (Sod 3.375 gm/ Sodium Chloride) 100 mls @ 200 mls/ hr IVPB Q8 [facility] Last Admin: 10/14/16 13:53 Dose: 200 mls/hr - Labs Labs: 10/14/16 07:08 10/14/16 07:08 PT 15.0 SECONDS (9.7-12.2) H 10/10/16 08:51 INR 1.3 10/10/16 08:51 APTT 34 SECONDS (21-34) 10/10/16 08:51 Assessment and Plan - Assessment and Plan (Free Text) Assessment: 1. Bacteremia 2. Mycotic aneurysm For JASON tomorrow to r/o Endocarditis
[2016-10-15] MEDS: Vancomycin 1 gm/NS 200 ml 1 GM/200 ML BAG IVPB SCH ×2 (05:06→17:41)
[2016-10-15] MEDS: Oxycodone/Acetaminophen 5/325 mg Tab PO PRN ×3 (05:06→22:45)
[2016-10-15] MEDS: Piperacillin/Tazobact 3.375 GM in Sodium Chloride 100 ML IVPB SCH ×3 (05:06→21:38)
[2016-10-15 06:53] LABS: BASO % 0.4 % (0.0-2.0); EOS # 0.4 K/uL (0.0-0.7); EOS % 3.8 % (0.0-4.0); HEMATOCRIT 30.4 % (35.0-51.0); LYMPH # 1.6 K/uL (1.0-4.3); LYMPH % 16.7 % (20.0-40.0); MEAN CELL VOLUME 79.7 fL (80.0-94.0); MEAN CORPUSCULAR HEMOGLOBIN 26.2 pg (27.0-31.0); MEAN CORPUSCULAR HGB CONC 32.9 g/dL (33.0-37.0); MEAN PLATELET VOLUME 8.3 fL (7.2-11.7); MONO # 0.8 K/uL (0.0-0.8); RED CELL DISTRIBUTION WIDTH 15.6 % (11.5-14.5); WHITE BLOOD COUNT 9.3 K/uL (4.8-10.8)
[2016-10-15 06:55] LABS: INR 1.3
[2016-10-15 07:29] LABS: CHLORIDE 103 mmol/L (98-107); SODIUM 140 mmol/L (132-148)
[2016-10-15 07:31] LABS: GFR AFRICAN-AMERICAN > 60
[2016-10-15 07:32] LABS: ALB/GLOB RATIO 0.8 (1.0-2.1); ALKALINE PHOSPHATASE 59 U/L (38-126); ALT/SGPT 52 U/L (21-72); AST/SGOT 40 U/L (17-59); BILIRUBIN,TOTAL 0.7 mg/dL (0.2-1.3); BLOOD UREA NITROGEN 9 mg/dL (9-20); CALCIUM 9.1 mg/dl (8.6-10.4); CARBON DIOXIDE 24 mmol/L (22-30); GLUCOSE,RANDOM 95 mg/dL (75-110); TOTAL PROTEIN 7.4 g/dL (6.3-8.3)
--- NOTE | 2016-10-15 08:08 | CP.PCM.PN ---
Subjective - Date & Time of Evaluation Date of Evaluation: 10/15/16 Time of Evaluation: 08:40 - Subjective Subjective: F/u SBE, anenia, wt loss Denies diarrhea, fever, RB, melena, SZ, LOC MARIE, cough, hemoptysis Objective - Vital Signs/Intake and Output Vital Signs (last 24 hours): Temp Pulse Resp BP Pulse Ox 97.7 F 78 20 145/62 96 10/15/16 07:21 10/15/16 07:21 10/15/16 07:21 10/15/16 07:21 10/15/16 07:21 Intake and Output: 10/15/16 10/15/16 06:59 18:59 Intake Total 750 Balance 750 - Medications Medications: Current Medications Docusate Sodium (Colace) 100 mg PO BID [facility] Last Admin: 10/14/16 17:01 Dose: 100 mg Enoxaparin Sodium (Lovenox) 40 mg SC DAILY [facility] Last Admin: 10/14/16 10:13 Dose: 40 mg Famotidine (Pepcid) 20 mg PO BID [facility] Last Admin: 10/14/16 17:01 Dose: 20 mg Vancomycin/Sodium Chloride (Vancocin) 1 gm in 200 mls @ 133 mls/hr IVPB Q12H [facility] Stop: 10/16/16 18:01 Last Admin: 10/15/16 05:06 Dose: 133 mls/hr Piperacillin Sod/Tazobactam (Sod 3.375 gm/ Sodium Chloride) 100 mls @ 200 mls/ hr IVPB Q8 [facility] Last Admin: 10/15/16 05:06 Dose: 200 mls/hr Oxycodone/Acetaminophen (Percocet 5/325 Mg Tab) 1 tab PO Q6H PRN PRN Reason: Pain, moderate (4-7) Stop: 10/17/16 22:13 Last Admin: 10/15/16 05:06 Dose: 1 tab - Labs Labs: 10/15/16 06:39 10/15/16 06:39 PT 14.5 SECONDS (9.7-12.2) H 10/15/16 06:39 INR 1.3 10/15/16 06:39 APTT 34 SECONDS (21-34) 10/10/16 08:51 - Constitutional Appears: Well - Neck Exam Neck Exam: absent: Tenderness - Respiratory Exam Respiratory Exam: Clear to Ausculation Bilateral - Cardiovascular Exam Cardiovascular Exam: RRR - GI/Abdominal Exam GI & Abdominal Exam: Soft, Normal Bowel Sounds. absent: Tenderness - Neurological Exam Neurological Exam: Alert, Oriented x3 Assessment and Plan (1) Bacteremia Assessment & Plan: r/o SBE Status: Acute (2) Iron deficiency anemia Status: Acute (3) Weight loss Status: Acute (4) Constipation Assessment & Plan: laxatives. Status: Acute
--- NOTE | 2016-10-15 09:03 | CP.PCM.PN ---
Addendum entered and electronically signed by Tasia Ibarra 10/15/16 14:19 : JASON (10/15): + Endocarditis; severe aortic regurgitation Original Note: <Tasia Ibarra - Last Filed: 10/15/16 14:01> Subjective - Date & Time of Evaluation Date of Evaluation: 10/15/16 Time of Evaluation: 09:00 - Subjective Subjective: Medicine Progress Note: Patient was seen and examined at bedside in the AM. Patient states his back chronically gives him pain. Patient would like something to be done about his back pain. Patient denies shortness of breath, palpations, nausea or vomiting. Objective - Vital Signs/Intake and Output Vital Signs (last 24 hours): Temp Pulse Resp BP Pulse Ox 97.7 F 78 20 145/62 96 10/15/16 07:21 10/15/16 07:21 10/15/16 07:21 10/15/16 07:21 10/15/16 07:21 Intake and Output: 10/15/16 10/15/16 06:59 18:59 Intake Total 750 Balance 750 - Medications Medications: Current Medications Docusate Sodium (Colace) 100 mg PO BID [facility] Last Admin: 10/14/16 17:01 Dose: 100 mg Enoxaparin Sodium (Lovenox) 40 mg SC DAILY [facility] Last Admin: 10/14/16 10:13 Dose: 40 mg Famotidine (Pepcid) 20 mg PO BID [facility] Last Admin: 10/14/16 17:01 Dose: 20 mg Vancomycin/Sodium Chloride (Vancocin) 1 gm in 200 mls @ 133 mls/hr IVPB Q12H [facility] Stop: 10/16/16 18:01 Last Admin: 10/15/16 05:06 Dose: 133 mls/hr Piperacillin Sod/Tazobactam (Sod 3.375 gm/ Sodium Chloride) 100 mls @ 200 mls/ hr IVPB Q8 [facility] Last Admin: 10/15/16 05:06 Dose: 200 mls/hr Oxycodone/Acetaminophen (Percocet 5/325 Mg Tab) 1 tab PO Q6H PRN PRN Reason: Pain, moderate (4-7) Stop: 10/17/16 22:13 Last Admin: 10/15/16 05:06 Dose: 1 tab - Labs Labs: 10/15/16 06:39 10/15/16 06:39 PT 14.5 SECONDS (9.7-12.2) H 10/15/16 06:39 INR 1.3 10/15/16 06:39 APTT 34 SECONDS (21-34) 10/10/16 08:51 - Constitutional Appears: No Acute Distress - Head Exam Head Exam: ATRAUMATIC, NORMAL INSPECTION, NORMOCEPHALIC - Eye Exam Eye Exam: EOMI, Normal appearance, PERRL Pupil Exam: NORMAL ACCOMODATION - ENT Exam ENT Exam: Mucous Membranes Moist - Respiratory Exam Respiratory Exam: Clear to Ausculation Bilateral, NORMAL BREATHING PATTERN - Cardiovascular Exam Cardiovascular Exam: REGULAR RHYTHM, RRR, +S1, +S2 - GI/Abdominal Exam GI & Abdominal Exam: Soft, Normal Bowel Sounds. absent: Tenderness - Extremities Exam Extremities Exam: Normal Inspection. 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 Meier- pt s/p coil embolization of SMA branch with detachable microcoils, 8 mm, 6 mm, and 4 mm on 10/10/16 * Vascular surgery consult (Dr. Farias) - embolization of aneurysm * CT abdomen/pelvis: Interval development of 1.5 x 1.6 cm enhancing focus within the mid abdomen (series 3, image 113) ; surrounding inflammatory changes are noted. This appears to communicate with an arcade branch of the SMA. Finding suspected to reflect mycotic aneurysm. * NS @ 75ml/hr * blood culture (10/10) positive enterococcus faecaelis- vancomycin 1g IV q12h and zosyn 3.375g q8 * Cards ([facility]) - JASON tomorrow -f/u Blood cultures positive * blood cultures (10/10) positive for enterococcus faecalis, sensitive to cipro EMILY 0.5 * Blood Culture (10/14) no growth - preliminary Back pain * F/U MRI to rule out abscess Tachycardia * EKG: sinus tachycardia, otherwise unremarkable Weight loss * GI consult, Dr. Garrett --> help appreciated * R/O upper GI malignancy, colonoscopy normal 2 years ago * CT does not show pancreas malignancy * Rec: EGD next week or as outpatient * check stool for occult blood- results pending Depression * psychiatry consult- Dr. Galvez, help appreciated Constipation * Colace 100 BID Prophylaxis * SCDs * lovenox 40mg sc daily * Pepcid 20mg PO BID * PT Case discussed with Dr. Ranjana Ibarra PGY-1 <Samy Chilel H - Last Filed: 10/15/16 15:15> Objective - Vital Signs/Intake and Output Vital Signs (last 24 hours): Temp Pulse Resp BP Pulse Ox 97.7 F 69 20 145/62 96 10/15/16 07:21 10/15/16 11:18 10/15/16 07:21 10/15/16 07:21 10/15/16 07:21 Intake and Output: 10/15/16 10/15/16 06:59 18:59 Intake Total 750 Balance 750 - Medications Medications: Current Medications Docusate Sodium (Colace) 100 mg PO BID [facility] Last Admin: 10/15/16 10:23 Dose: Not Given Enoxaparin Sodium (Lovenox) 40 mg SC DAILY [facility] Last Admin: 10/15/16 10:23 Dose: Not Given Famotidine (Pepcid) 20 mg PO BID [facility] Last Admin: 10/15/16 10:24 Dose: Not Given Vancomycin/Sodium Chloride (Vancocin) 1 gm in 200 mls @ 133 mls/hr IVPB Q12H [facility] Stop: 10/16/16 18:01 Last Admin: 10/15/16 05:06 Dose: 133 mls/hr Piperacillin Sod/Tazobactam (Sod 3.375 gm/ Sodium Chloride) 100 mls @ 200 mls/ hr IVPB Q8 [facility] Last Admin: 10/15/16 14:39 Dose: 200 mls/hr Oxycodone/Acetaminophen (Percocet 5/325 Mg Tab) 1 tab PO Q6H PRN PRN Reason: Pain, moderate (4-7) Stop: 10/17/16 22:13 Last Admin: 10/15/16 05:06 Dose: 1 tab - Labs Labs: 10/15/16 06:39 10/15/16 06:39 PT 14.5 SECONDS (9.7-12.2) H 10/15/16 06:39 INR 1.3 10/15/16 06:39 APTT 34 SECONDS (21-34) 10/10/16 08:51 Attending/Attestation - Attestation I have personally seen and examined this patient.: Yes I have fully participated in the care of the patient.: Yes I have reviewed all pertinent clinical information, including history, physical exam and plan: Yes Notes (Text): Medical Attending: Patient was seen and examined by me. Agree with the above note by the resident. As mentioned above the JASON returned and was suggestive of potential endocarditis. The official report is still pending at this moment. Sourav will need a PICC Line. thank you Samy Chilel
[2016-10-15] MEDS: Enoxaparin 40 mg Syringe SC SCH (10:23)
[2016-10-15] MEDS ORDERED: Lidocaine 4% (Laryng-O-Jet) Kit MM ONE (12:07)
[2016-10-15] MEDS ORDERED: Propofol 10 mg/ml Inj (20 ML) ONE ×2 (13:03)
--- NOTE | 2016-10-15 15:07 | PCM.PSYCH ---
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 Patient cared for his elderly mother for 20 years before her in May 2015. Patient has never seen a psychiatrist, never been hospitalized for a psychiatric problem and has no personal history of a psychiatric illness. Patient reports that since approximately July of this year, he has noted a decreased interest in things he is normally interested in, like watching movies. He states that he is discouraged by the "Trump Nazis" and "people who can't do their jobs." He states that he feels depressed from time to time and "fed up with crap." He states that he has been nervous since he was a young child, which he attributes to other children being "nasty" to him, but states that he has since moved on from that. Reports that his sleeping habits have changed, but he attributes the changes to "just getting old." He states that sometimes he sleeps a full night, sometimes he sleeps for just a couple of hours , and sometimes he sleeps in the afternoon. Reports that he feels decreased energy, and sometimes doesn't do things he wants to do because he doesn't have the energy for it. He states that his ability to concentrate "varies." Notes that since July, he frequently doesn't feel hungry and doesn't want to eat. Per the records from his primary doctor, he has had an approximate weight loss of 40lbs but cannot specify an exact timeline. He denies feelings of hopelessness, helplessness, guilt, worthlessness, or restlessness. He denies suicidal ideation or homicidal ideation. He has no plans to harm himself or others. Denies history of trauma or abuse. Patient denies racing thoughts or periods of greatly increased energy. He denies visual or auditory hallucinations, or the feeling like he is being watched or followed. Patient denies current use of alcohol, drugs or tobacco products. Past medical history: arthritis ? vertigo Past surgical history: tonsillectomy as a child Medications: Coated aspirin Aleve another OTC medication (cannot recall name) Allergies: NKDA Family history: Both parents . 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 Denies use of heroin, cocaine, painkillers, or any other substances. Reports one time use of amphetamines in the 1970s. Used marijuana "a long time ago." Current Medications: Active Medications Generic Name Dose Route Start Last Admin Trade Name Freq PRN Reason Stop Dose Admin Docusate Sodium 100 mg 10/14/16 11:15 10/15/16 10:23 Colace PO Not Given BID [facility] Enoxaparin Sodium 40 mg 10/14/16 10:00 10/15/16 10:23 Lovenox SC Not Given DAILY [facility] Famotidine 20 mg 10/11/16 10:00 10/15/16 10:24 Pepcid PO Not Given BID [facility] Vancomycin/Sodium Chloride 1 gm in 200 mls @ 133 mls/hr 10/11/16 18:00 05:06 Vancocin IVPB 10/16/16 18:01 133 mls/hr Q12H [facility] Administration Piperacillin Sod/Tazobactam 100 mls @ 200 mls/hr 10/11/16 22:00 10/15/16 14: 39 Sod 3.375 gm/ Sodium Chloride IVPB 200 mls/hr Q8 [facility] Administration Oxycodone/Acetaminophen 1 tab 10/14/16 22:12 10/15/16 05:06 Percocet 5/325 Mg Tab PO 10/17/16 22:13 1 tab Q6H PRN Administration Pain, moderate (4-7) Past Psychiatric History - Past Psychiatric History Previous Treatment History: None Pertinent Medical Hx (Current Medical&Sleep Prob, Allergies): Allergies Allergy/AdvReac Type Severity Reaction Status Date / Time mushroom Allergy Verified 10/10/16 08:14 Meclizine [Meclizine*] 25 mg PO Q6 #30 tab 09/15/16 Polyethylene Glycol 3350 [Miralax] 17 gm PO DAILY #85 gm 10/04/16 Simethicone [Mylicon Chew Tab] 80 mg PO TID PRN #10 ctb 10/04/16 Cyclobenzaprine [Cyclobenzaprine HCl] 10 mg PO Q8H #12 tab 10/05/16 Lidocaine 5% [Lidoderm] 1 patch TD ONCE #5 patch 10/05/16 Review of Systems - Review of Systems All systems: reviewed and no additional remarkable complaints except - Psychiatric Psychiatric: Anxiety, Depression, Irritability Mental Status Examination - Personal Presentation Personal Presentation: Looks stated age - Affect Affect: Constricted, Depressed - Motor Activity Motor Activity: Calm - Reliability in Providing Information Reliability in Providing Information: Good - Speech Speech: Organized - Mood Mood: Depressed - Formal Thought Process Formal Thought Process: No Impairment - Obsessions/Compulsions Obsessions: No Compulsions: No - Cognitive Functions Orientation: Person, Place, Situation, Time Sensorium: Alert Attention/Concentration: Attentive Abstract Thinking: [place] Estimate of Intelligence: Below average Judgement: Imparied, as evidence by: Poor judgement, Intact, as evidence by: Insight regarding need for hospitalization Memory: Recent intact, as evidence by: Ability to recall events of the day, Remote intact, as evidenced by: Abilit to recall sig. life events - Risk Risk: Diminished functioning - Strength & Assets Inventory Strength & Assets Inventory: Intelligence - Limitations Limitations: Living alone DSM 5 DX - DSM 5 DSM 5 Diagnosis: Major depressive disorder recurrent moderate - Recommended/Plan of Treatment Treatment Recommendations and Plan of Treatment: Major depressive disorder recurrent moderate CBT Psychoeducation Supportive therapy and psychotherapy Sertraline 50 mg PO Daily Trazodone 50 mg pO QHS Atarax 25 mg po q6 hr prn - Smoking Cessation Smoking Cessation Initiated: No
--- NOTE | 2016-10-15 20:04 | CARD ---
APPROVED REPORT EXAM: Two-dimensional and M-mode echocardiogram with Doppler and color Doppler. INDICATION Dizziness and Vertigo mycotic aneursym 2D DIMENSIONS IVSd1.0 (0.7-1.1cm)LVDd5.7 (3.9-5.9cm) LVOT Diameter2.0 (1.8-2.4cm)PWd0.8 (0.7-1.1cm) LVDs3.9 (2.5-4.0cm)FS (%) 31.0 % LVEF (%)58.0 (>50%) M-Mode DIMENSIONS RVDd2.10 (2.1-3.2cm)Left Atrium (MM)4.61 (2.5-4.0cm) IVSd0.77 (0.7-1.1cm)Aortic Root3.02 (2.2-3.7cm) LVDd6.23 (4.0-5.6cm)Aortic Cusp Exc.2.03 (1.5-2.0cm) PWd0.89 (0.7-1.1cm)FS (%) 53 % LVDs2.91 (2.0-3.8cm)LVEF (%)83 (>50%) Aortic Valve AoV Peak Fgxrsddo233.0cm/sAoV VTI52.7cmAO Peak GR.24mmHg LVOT Peak Vopdrazi041.4cm/sLVOT VTI30.33cmAO Mean GR.12mmHg DAMIR (VMAX)1.32ic1QLO (VTI)1.62ea8QZ P 1/2 Ixoj865rw Mitral Valve MV E Xitbqcqc74.3cm/sMV A Eitbzofh03.2cm/sE/A ratio1.4 TDI E/Lateral E'0.0E/Medial E'0.0 Tricuspid Valve TR Peak Gacuznhl316fl/sTR Peak Gr.78qmRpZQFX63ikOg LEFT VENTRICLE The left ventricle is normal size. There is normal left ventricular wall thickness. The left ventricular function is normal. The left ventricular ejection fraction is within the normal range. There is normal LV segmental wall motion. RIGHT VENTRICLE The right ventricle is normal size. There is normal right ventricular wall thickness. The right ventricular systolic function is normal. ATRIA The left atrium is moderately dilated. The right atrium is mildly dilated. AORTIC VALVE The aortic valve is moderately thickened. There is mild to moderate aortic regurgitation. Cannot exclude aortic valvular vegetation. MITRAL VALVE The mitral valve is mildly thickened. Mitral regurgitation is mild to moderate. TRICUSPID VALVE There is mild pulmonary hypertension. GREAT VESSELS The aortic root is normal in size. PERICARDIAL EFFUSION There is a small circumferential pericardial effusion. <Conclusion> The left ventricle is normal size. There is normal left ventricular wall thickness. The left ventricular function is normal. The left ventricular ejection fraction is within the normal range. There is normal LV segmental wall motion. The aortic valve is moderately thickened.Cannot exclude aortic valvular vegetation. There is mild to moderate aortic regurgitation. Mitral regurgitation is mild to moderate. There is mild pulmonary hypertension.
--- NOTE | 2016-10-16 00:30 | CP.PCM.PN ---
Subjective - Date & Time of Evaluation Date of Evaluation: 10/15/16 Time of Evaluation: 13:00 - Subjective Subjective: Patient s/p JASON Aortic valve Endocarditis with severe AI Plan to transfer to [facility] for AVR Recommend colonoscopy prior to surgery to Enterococcus bacteremia Objective - Vital Signs/Intake and Output Vital Signs (last 24 hours): Temp Pulse Resp BP Pulse Ox 97.3 F L 90 20 137/61 96 10/15/16 16:00 10/15/16 16:00 10/15/16 16:00 10/15/16 16:00 10/15/16 16:00 Intake and Output: 10/15/16 10/16/16 18:59 06:59 Intake Total 0 Balance 0 - Medications Medications: Current Medications Docusate Sodium (Colace) 100 mg PO BID [facility] Last Admin: 10/15/16 18:00 Dose: 100 mg Enoxaparin Sodium (Lovenox) 40 mg SC DAILY [facility] Last Admin: 10/15/16 10:23 Dose: Not Given Famotidine (Pepcid) 20 mg PO BID [facility] Last Admin: 10/15/16 17:42 Dose: 20 mg Hydroxyzine HCl (Atarax) 25 mg PO Q6 PRN PRN Reason: Agitation Vancomycin/Sodium Chloride (Vancocin) 1 gm in 200 mls @ 133 mls/hr IVPB Q12H [facility] Stop: 10/16/16 18:01 Last Admin: 10/15/16 17:41 Dose: 133 mls/hr Piperacillin Sod/Tazobactam (Sod 3.375 gm/ Sodium Chloride) 100 mls @ 200 mls/ hr IVPB Q8 [facility] Last Admin: 10/15/16 21:38 Dose: 200 mls/hr Oxycodone/Acetaminophen (Percocet 5/325 Mg Tab) 1 tab PO Q6H PRN PRN Reason: Pain, moderate (4-7) Stop: 10/17/16 22:13 Last Admin: 10/15/16 22:45 Dose: 1 tab Sertraline HCl (Zoloft) 50 mg PO DAILY [facility] Trazodone HCl (Desyrel) 50 mg PO HS [facility] - Labs Labs: 10/15/16 06:39 10/15/16 06:39 PT 14.5 SECONDS (9.7-12.2) H 10/15/16 06:39 INR 1.3 10/15/16 06:39 APTT 34 SECONDS (21-34) 10/10/16 08:51
[2016-10-16] MEDS: Piperacillin/Tazobact 3.375 GM in Sodium Chloride 100 ML IVPB SCH ×2 (05:10→13:33)
[2016-10-16] MEDS: Oxycodone/Acetaminophen 5/325 mg Tab PO PRN ×2 (05:14→17:20)
[2016-10-16] MEDS: Vancomycin 1 gm/NS 200 ml 1 GM/200 ML BAG IVPB SCH (06:09)
[2016-10-16 08:16] LABS: BASO # 0.1 K/uL (0.0-0.2); BASO % 0.6 % (0.0-2.0); EOS # 0.3 K/uL (0.0-0.7); EOS % 2.8 % (0.0-4.0); HEMATOCRIT 30.3 % (35.0-51.0); LYMPH # 1.5 K/uL (1.0-4.3); LYMPH % 14.4 % (20.0-40.0); MEAN CORPUSCULAR HEMOGLOBIN 26.7 pg (27.0-31.0); MEAN CORPUSCULAR HGB CONC 33.4 g/dL (33.0-37.0); MEAN PLATELET VOLUME 8.4 fL (7.2-11.7); MONO # 0.8 K/uL (0.0-0.8); MONO % 8.2 % (0.0-10.0); RED CELL DISTRIBUTION WIDTH 15.6 % (11.5-14.5); WHITE BLOOD COUNT 10.1 K/uL (4.8-10.8)
[2016-10-16 08:32] LABS: ALB/GLOB RATIO 0.7 (1.0-2.1); ALKALINE PHOSPHATASE 63 U/L (38-126); ALT/SGPT 45 U/L (21-72); AST/SGOT 34 U/L (17-59); BILIRUBIN,TOTAL 0.7 mg/dL (0.2-1.3); BLOOD UREA NITROGEN 11 mg/dL (9-20); CALCIUM 9.3 mg/dl (8.6-10.4); CARBON DIOXIDE 24 mmol/L (22-30); CHLORIDE 101 mmol/L (98-107); GFR AFRICAN-AMERICAN > 60; GLUCOSE,RANDOM 95 mg/dL (75-110); MAGNESIUM 2.2 mg/dL (1.6-2.3); PHOSPHOROUS 3.4 mg/dL (2.5-4.5); POTASSIUM 3.9 mmol/L (3.6-5.2); SODIUM 138 mmol/L (132-148); TOTAL PROTEIN 7.5 g/dL (6.3-8.3)
[2016-10-16] MEDS: Enoxaparin 40 mg Syringe SC SCH (09:33)
[2016-10-16] MEDS ORDERED: Propofol 10 mg/ml Inj (20 ML) ONE (11:24)
[2016-10-16] MEDS ORDERED: Lactated Ringer's 1,000 ML IV ONE (11:47)
--- NOTE | 2016-10-16 12:02 | CP.PCM.PN ---
Subjective - Date & Time of Evaluation Date of Evaluation: 10/16/16 Time of Evaluation: 12:01 - Subjective Subjective: Discussed with dr Whitehead- severe AI with aortic valve vegatation OK to proceed with EGD today. Colonoscopy was performed 2 years ago and therefore not scheduled during this admission Objective - Vital Signs/Intake and Output Vital Signs (last 24 hours): Temp Pulse Resp BP Pulse Ox 98.2 F 74 20 106/57 L 93 L 10/16/16 07:15 10/16/16 07:15 10/16/16 07:15 10/16/16 07:15 10/16/16 07:15 Intake and Output: 10/16/16 10/16/16 06:59 18:59 Intake Total 300 Balance 300 - Medications Medications: Current Medications Docusate Sodium (Colace) 100 mg PO BID [facility] Last Admin: 10/16/16 09:33 Dose: 100 mg Enoxaparin Sodium (Lovenox) 40 mg SC DAILY [facility] Last Admin: 10/16/16 09:33 Dose: Not Given Famotidine (Pepcid) 20 mg PO BID [facility] Last Admin: 10/16/16 09:33 Dose: 20 mg Hydroxyzine HCl (Atarax) 25 mg PO Q6 PRN PRN Reason: Agitation Vancomycin/Sodium Chloride (Vancocin) 1 gm in 200 mls @ 133 mls/hr IVPB Q12H [facility] Stop: 10/16/16 18:01 Last Admin: 10/16/16 06:09 Dose: 133 mls/hr Piperacillin Sod/Tazobactam (Sod 3.375 gm/ Sodium Chloride) 100 mls @ 200 mls/ hr IVPB Q8 [facility] Last Admin: 10/16/16 05:10 Dose: 200 mls/hr Oxycodone/Acetaminophen (Percocet 5/325 Mg Tab) 1 tab PO Q6H PRN PRN Reason: Pain, moderate (4-7) Stop: 10/17/16 22:13 Last Admin: 10/16/16 05:14 Dose: 1 tab Sertraline HCl (Zoloft) 50 mg PO DAILY [facility] Last Admin: 10/16/16 09:33 Dose: 50 mg Trazodone HCl (Desyrel) 50 mg PO HS [facility] Last Admin: 10/16/16 01:00 Dose: 50 mg - Labs Labs: 10/16/16 08:02 10/16/16 08:02 PT 14.5 SECONDS (9.7-12.2) H 10/15/16 06:39 INR 1.3 10/15/16 06:39 APTT 34 SECONDS (21-34) 10/10/16 08:51 Assessment and Plan (1) Weight loss Status: Acute (2) Iron deficiency anemia Status: Acute
--- NOTE | 2016-10-16 13:32 | CP.PCM.PN ---
Subjective - Date & Time of Evaluation Date of Evaluation: 10/16/16 Time of Evaluation: 09:00 - Subjective Subjective: events noted has severe AI iv rx in progress Objective - Vital Signs/Intake and Output Vital Signs (last 24 hours): Temp Pulse Resp BP Pulse Ox 97.8 F 78 18 120/50 L 100 10/16/16 12:08 10/16/16 12:38 10/16/16 12:38 10/16/16 12:38 10/16/16 12:38 Intake and Output: 10/16/16 10/16/16 06:59 18:59 Intake Total 300 Balance 300 - Medications Medications: Current Medications Bisacodyl (Dulcolax) 10 mg PO ONCE ONE Stop: 10/16/16 17:01 Docusate Sodium (Colace) 100 mg PO BID [facility] Last Admin: 10/16/16 09:33 Dose: 100 mg Enoxaparin Sodium (Lovenox) 40 mg SC DAILY [facility] Last Admin: 10/16/16 09:33 Dose: Not Given Famotidine (Pepcid) 20 mg PO BID [facility] Last Admin: 10/16/16 09:33 Dose: 20 mg Hydroxyzine HCl (Atarax) 25 mg PO Q6 PRN PRN Reason: Agitation Vancomycin/Sodium Chloride (Vancocin) 1 gm in 200 mls @ 133 mls/hr IVPB Q12H [facility] Stop: 10/16/16 18:01 Last Admin: 10/16/16 06:09 Dose: 133 mls/hr Piperacillin Sod/Tazobactam (Sod 3.375 gm/ Sodium Chloride) 100 mls @ 200 mls/ hr IVPB Q8 [facility] Last Admin: 10/16/16 05:10 Dose: 200 mls/hr Oxycodone/Acetaminophen (Percocet 5/325 Mg Tab) 1 tab PO Q6H PRN PRN Reason: Pain, moderate (4-7) Stop: 10/17/16 22:13 Last Admin: 10/16/16 05:14 Dose: 1 tab Polyethylene Glycol/Electrolytes (Golytely) 2,000 ml PO ONCE ONE Stop: 10/16/16 18:01 Polyethylene Glycol/Electrolytes (Golytely) 2,000 ml PO ONCE ONE Stop: 10/17/16 06:01 Sertraline HCl (Zoloft) 50 mg PO DAILY [facility] Last Admin: 10/16/16 09:33 Dose: 50 mg Trazodone HCl (Desyrel) 50 mg PO HS [facility] Last Admin: 10/16/16 01:00 Dose: 50 mg - Labs Labs: 10/16/16 08:02 10/16/16 08:02 PT 14.5 SECONDS (9.7-12.2) H 10/15/16 06:39 INR 1.3 10/15/16 06:39 APTT 34 SECONDS (21-34) 10/10/16 08:51 - Constitutional Appears: Non-toxic, Chronically Ill - Head Exam Head Exam: NORMOCEPHALIC - Eye Exam Eye Exam: absent: Scleral icterus - ENT Exam ENT Exam: Mucous Membranes Dry - Neck Exam Neck Exam: absent: Lymphadenopathy - Respiratory Exam Respiratory Exam: Decreased Breath Sounds - Cardiovascular Exam Cardiovascular Exam: REGULAR RHYTHM - GI/Abdominal Exam GI & Abdominal Exam: Distended, Soft - Rectal Exam Rectal Exam: Deferred - Exam Exam: NORMAL INSPECTION Assessment and Plan (1) Iron deficiency anemia Status: Acute (2) Mycotic aneurysm Status: Acute (3) Weight loss Status: Acute (4) Abdominal pain Status: Acute (5) Constipation Status: Acute (6) Low back pain Status: Acute (7) Vertigo Status: Acute
[2016-10-16] MEDS: cefTRIAXone 2 GM in Sodium Chloride 0.9% 100 ML IVPB SCH (16:00)
[2016-10-16 16:16] VITALS: RESP 20
--- NOTE | 2016-10-16 16:41 | CP.PCM.PN ---
<Tasia Ibarra - Last Filed: 10/16/16 16:32> Subjective - Date & Time of Evaluation Date of Evaluation: 10/16/16 Time of Evaluation: 07:30 - Subjective Subjective: Medicine Progress Note: Patient was seen and examined at bedside in the AM. Patient states he continues to have chronic back pain. Patient denies shortness of breath, chest pain, palpations, nausea or vomiting. Objective - Vital Signs/Intake and Output Vital Signs (last 24 hours): Temp Pulse Resp BP Pulse Ox 98.1 F 88 20 113/56 L 96 10/16/16 16:00 10/16/16 16:00 10/16/16 16:00 10/16/16 16:00 10/16/16 16:00 Intake and Output: 10/16/16 10/16/16 06:59 18:59 Intake Total 850 Balance 850 - Medications Medications: Current Medications Bisacodyl (Dulcolax) 10 mg PO ONCE ONE Stop: 10/16/16 17:01 Docusate Sodium (Colace) 100 mg PO BID [facility] Last Admin: 10/16/16 09:33 Dose: 100 mg Enoxaparin Sodium (Lovenox) 40 mg SC DAILY [facility] Last Admin: 10/16/16 09:33 Dose: Not Given Famotidine (Pepcid) 20 mg PO BID [facility] Last Admin: 10/16/16 09:33 Dose: 20 mg Hydroxyzine HCl (Atarax) 25 mg PO Q6 PRN PRN Reason: Agitation Ampicillin 2,000 mg/ Sodium (Chloride) 100 mls @ 100 mls/hr IVPB Q4H [facility] Ceftriaxone Sodium 2 gm/ (Sodium Chloride) 100 mls @ 100 mls/hr IVPB Q12H [facility] Oxycodone/Acetaminophen (Percocet 5/325 Mg Tab) 1 tab PO Q6H PRN PRN Reason: Pain, moderate (4-7) Stop: 10/17/16 22:13 Last Admin: 10/16/16 05:14 Dose: 1 tab Polyethylene Glycol/Electrolytes (Golytely) 2,000 ml PO ONCE ONE Stop: 10/16/16 18:01 Polyethylene Glycol/Electrolytes (Golytely) 2,000 ml PO ONCE ONE Stop: 10/17/16 06:01 Sertraline HCl (Zoloft) 50 mg PO DAILY [facility] Last Admin: 10/16/16 09:33 Dose: 50 mg Trazodone HCl (Desyrel) 50 mg PO HS [facility] Last Admin: 10/16/16 01:00 Dose: 50 mg - Labs Labs: 10/16/16 08:02 10/16/16 08:02 PT 14.5 SECONDS (9.7-12.2) H 10/15/16 06:39 INR 1.3 10/15/16 06:39 APTT 34 SECONDS (21-34) 10/10/16 08:51 - Constitutional Appears: No Acute Distress - Head Exam Head Exam: ATRAUMATIC, NORMAL INSPECTION, NORMOCEPHALIC - Eye Exam Eye Exam: EOMI, Normal appearance, PERRL Pupil Exam: NORMAL ACCOMODATION, PERRL - ENT Exam ENT Exam: Mucous Membranes Moist - Respiratory Exam Respiratory Exam: Clear to Ausculation Bilateral, NORMAL BREATHING PATTERN - Cardiovascular Exam Cardiovascular Exam: REGULAR RHYTHM, RRR, +S1, +S2 - GI/Abdominal Exam GI & Abdominal Exam: Soft, Normal Bowel Sounds. absent: Tenderness - Extremities Exam Extremities Exam: Normal Inspection. 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 Meier- pt s/p coil embolization of SMA branch with detachable microcoils, 8 mm, 6 mm, and 4 mm on 10/10/16 * Vascular surgery consult (Dr. Farias) - embolization of aneurysm * CT abdomen/pelvis: Interval development of 1.5 x 1.6 cm enhancing focus within the mid abdomen (series 3, image 113) ; surrounding inflammatory changes are noted. This appears to communicate with an arcade branch of the SMA. Finding suspected to reflect mycotic aneurysm. * NS @ 75ml/hr * blood culture (10/10) positive enterococcus faecaelis- vancomycin 1g IV q12h and zosyn 3.375g q8 * Cardiology Consult: Dr. Whitehead --> help appreciated * JASON: Aortic valve endocarditis with severe aortic insufficiency Blood cultures positive * blood cultures (10/10) positive for enterococcus faecalis, sensitive to cipro EMILY 0.5 * Blood Culture (9/4) no growth - preliminary * per Dr. Cerda's note f/u with ampi + gentamicin synergy Back pain * F/U MRI to rule out abscess * Patient refused 2x to have MRI done due to severe back pain Tachycardia * EKG: sinus tachycardia, otherwise unremarkable Weight loss * GI consult, Dr. Garrett --> help appreciated * R/O upper GI malignancy, colonoscopy normal 2 years ago * per GI patient will not need colonoscopy during this admission * CT does not show pancreas malignancy * EGD: Esophagus was normal; a few diffuse erosions without bleeding were found in the duodenal bulb. * f/u with biopsies * check stool for occult blood- results pending Depression * psychiatry consult- Dr. Galvez, help appreciated Constipation * Colace 100 BID Prophylaxis * SCDs * lovenox 40mg sc daily * Pepcid 20mg PO BID * PT Disposition: To transfer patient to [facility] for AVR Case discussed with Dr. Ranjana Ibarra PGY-1 <Samy Chilel - Last Filed: 10/16/16 17:26> Objective - Vital Signs/Intake and Output Vital Signs (last 24 hours): Temp Pulse Resp BP Pulse Ox 98.1 F 88 20 113/56 L 96 10/16/16 16:00 10/16/16 16:00 10/16/16 16:00 10/16/16 16:00 10/16/16 16:00 Intake and Output: 10/16/16 10/16/16 06:59 18:59 Intake Total 850 Balance 850 - Medications Medications: Current Medications Docusate Sodium (Colace) 100 mg PO BID [facility] Last Admin: 10/16/16 09:33 Dose: 100 mg Enoxaparin Sodium (Lovenox) 40 mg SC DAILY [facility] Last Admin: 10/16/16 09:33 Dose: Not Given Famotidine (Pepcid) 20 mg PO BID [facility] Last Admin: 10/16/16 09:33 Dose: 20 mg Hydroxyzine HCl (Atarax) 25 mg PO Q6 PRN PRN Reason: Agitation Ampicillin 2,000 mg/ Sodium (Chloride) 100 mls @ 100 mls/hr IVPB Q4H [facility] Ceftriaxone Sodium 2 gm/ (Sodium Chloride) 100 mls @ 100 mls/hr IVPB Q12H [facility] Oxycodone/Acetaminophen (Percocet 5/325 Mg Tab) 1 tab PO Q6H PRN PRN Reason: Pain, moderate (4-7) Stop: 10/17/16 22:13 Last Admin: 10/16/16 05:14 Dose: 1 tab Polyethylene Glycol/Electrolytes (Golytely) 2,000 ml PO ONCE ONE Stop: 10/16/16 18:01 Polyethylene Glycol/Electrolytes (Golytely) 2,000 ml PO ONCE ONE Stop: 10/17/16 06:01 Sertraline HCl (Zoloft) 50 mg PO DAILY [facility] Last Admin: 10/16/16 09:33 Dose: 50 mg Trazodone HCl (Desyrel) 50 mg PO HS [facility] Last Admin: 10/16/16 01:00 Dose: 50 mg - Labs Labs: 10/16/16 08:02 10/16/16 08:02 PT 14.5 SECONDS (9.7-12.2) H 10/15/16 06:39 INR 1.3 10/15/16 06:39 APTT 34 SECONDS (21-34) 10/10/16 08:51 Attending/Attestation - Attestation I have personally seen and examined this patient.: Yes I have fully participated in the care of the patient.: Yes I have reviewed all pertinent clinical information, including history, physical exam and plan: Yes Notes (Text): 10/16/16 17:22 Medical attending: Patient was seen and examined by me. Agree with the above note by the resident He denied chest pain, denied shortness of breath, denied palpitations. He does report ongoing lower back pain He did not want the MRI of the L/S The patient is pending transfer at this time to [facility] due to the findings of the JASON For now IV abx are being continued Zosyn and Vancomycin thank you Samy Chilel
[2016-10-16] MEDS ORDERED: Bisacodyl 5mg EC Tab PO ONE (17:00)
[2016-10-16] MEDS ORDERED: Peg-Electrolyte Oral Soln 4L (Golytely) PO ONE (18:00)
[2016-10-17 00:10] VITALS: O2SAT 95
[2016-10-17] MEDS: Oxycodone/Acetaminophen 5/325 mg Tab PO PRN ×4 (00:16→22:08)
[2016-10-17] MEDS: cefTRIAXone 2 GM in Sodium Chloride 0.9% 100 ML IVPB SCH ×2 (04:13→16:00)
[2016-10-17] MEDS ORDERED: Peg-Electrolyte Oral Soln 4L (Golytely) PO ONE (06:00)
[2016-10-17 07:35] LABS: BASO # 0.1 K/uL (0.0-0.2); BASO % 0.5 % (0.0-2.0); EOS # 0.3 K/uL (0.0-0.7); EOS % 3.4 % (0.0-4.0); HEMATOCRIT 30.2 % (35.0-51.0); LYMPH # 1.9 K/uL (1.0-4.3); LYMPH % 19.9 % (20.0-40.0); MEAN CELL VOLUME 79.4 fL (80.0-94.0); MEAN CORPUSCULAR HEMOGLOBIN 26.3 pg (27.0-31.0); MEAN CORPUSCULAR HGB CONC 33.1 g/dL (33.0-37.0); MEAN PLATELET VOLUME 8.4 fL (7.2-11.7); MONO # 0.9 K/uL (0.0-0.8); MONO % 9.4 % (0.0-10.0); NRBC % 0.1 % (0.0-2.0); RED CELL DISTRIBUTION WIDTH 15.5 % (11.5-14.5); WHITE BLOOD COUNT 9.7 K/uL (4.8-10.8)
[2016-10-17 07:54] VITALS: PULSE 75; TEMP 97.7
[2016-10-17 08:00] LABS: CHLORIDE 106 mmol/L (98-107); SODIUM 138 mmol/L (132-148)
[2016-10-17 08:02] LABS: AST/SGOT 40 U/L (17-59); BILIRUBIN,TOTAL 0.6 mg/dL (0.2-1.3); CARBON DIOXIDE 25 mmol/L (22-30); GFR AFRICAN-AMERICAN > 60
[2016-10-17 08:03] LABS: ALB/GLOB RATIO 0.8 (1.0-2.1); ALKALINE PHOSPHATASE 57 U/L (38-126); ALT/SGPT 49 U/L (21-72); BLOOD UREA NITROGEN 10 mg/dL (9-20); CALCIUM 8.6 mg/dl (8.6-10.4); GLUCOSE,RANDOM 96 mg/dL (75-110); MAGNESIUM 2.2 mg/dL (1.6-2.3); PHOSPHOROUS 2.9 mg/dL (2.5-4.5); TOTAL PROTEIN 7.4 g/dL (6.3-8.3)
--- NOTE | 2016-10-17 08:56 | CP.PCM.PN ---
Subjective - Date & Time of Evaluation Date of Evaluation: 10/17/16 Time of Evaluation: 08:55 - Subjective Subjective: RN called 6:30 am today. She said the other RN thought the colonoscopy was cancelled, so prep was not given. REC: Consider re-scheduling colonoscopy. Objective - Vital Signs/Intake and Output Vital Signs (last 24 hours): Temp Pulse Resp BP Pulse Ox 97.7 F 75 20 122/64 95 10/17/16 07:53 10/17/16 07:53 10/17/16 07:53 10/17/16 07:53 10/17/16 07:53 Intake and Output: 10/17/16 10/17/16 06:59 18:59 Intake Total 300 450 Output Total 1200 Balance -900 450 - Medications Medications: Current Medications Docusate Sodium (Colace) 100 mg PO BID [facility] Last Admin: 10/16/16 18:14 Dose: 100 mg Enoxaparin Sodium (Lovenox) 40 mg SC DAILY [facility] Last Admin: 10/16/16 09:33 Dose: Not Given Famotidine (Pepcid) 20 mg PO BID [facility] Last Admin: 10/16/16 18:16 Dose: 20 mg Hydroxyzine HCl (Atarax) 25 mg PO Q6 PRN PRN Reason: Agitation Ampicillin 2,000 mg/ Sodium (Chloride) 100 mls @ 100 mls/hr IVPB Q4H [facility] Last Admin: 10/17/16 05:30 Dose: 100 mls/hr Ceftriaxone Sodium 2 gm/ (Sodium Chloride) 100 mls @ 100 mls/hr IVPB Q12H [facility] Last Admin: 10/17/16 04:13 Dose: 100 mls/hr Oxycodone/Acetaminophen (Percocet 5/325 Mg Tab) 1 tab PO Q6H PRN PRN Reason: Pain, moderate (4-7) Stop: 10/17/16 22:13 Last Admin: 10/17/16 06:44 Dose: 1 tab Sertraline HCl (Zoloft) 50 mg PO DAILY [facility] Last Admin: 10/16/16 09:33 Dose: 50 mg Trazodone HCl (Desyrel) 50 mg PO HS [facility] Last Admin: 10/16/16 22:12 Dose: 50 mg - Labs Labs: 10/17/16 07:08 10/17/16 07:08 PT 14.5 SECONDS (9.7-12.2) H 10/15/16 06:39 INR 1.3 10/15/16 06:39 APTT 34 SECONDS (21-34) 10/10/16 08:51 Assessment and Plan (1) Bacteremia Status: Acute (2) Iron deficiency anemia Status: Acute (3) Weight loss Status: Acute (4) Constipation Status: Acute
[2016-10-17] MEDS: Enoxaparin 40 mg Syringe SC SCH (09:53)
--- NOTE | 2016-10-17 10:27 | CP.PCM.PN ---
Subjective - Date & Time of Evaluation Date of Evaluation: 10/17/16 Time of Evaluation: 10:25 - Subjective Subjective: F/u anemia, wt loss Pt was scheduled yest pm for colonosocpy today. Dr Garrett spoke with the RN about this yest afternoon and wrote orders for prep. Howqever, the prep was stopped and the colonosocpy was cancellled. But it was not I nor Dr Garrett who cancelled it. Pt reports occ abd cramps. Denies RB, melena fever, SOB, hematuria, MARIE, cough Objective - Vital Signs/Intake and Output Vital Signs (last 24 hours): Temp Pulse Resp BP Pulse Ox 97.7 F 75 20 122/64 95 10/17/16 07:53 10/17/16 07:53 10/17/16 07:53 10/17/16 07:53 10/17/16 07:53 Intake and Output: 10/17/16 10/17/16 06:59 18:59 Intake Total 300 450 Output Total 1200 Balance -900 450 - Medications Medications: Current Medications Docusate Sodium (Colace) 100 mg PO BID [facility] Last Admin: 10/17/16 09:53 Dose: 100 mg Enoxaparin Sodium (Lovenox) 40 mg SC DAILY [facility] Last Admin: 10/17/16 09:53 Dose: 40 mg Famotidine (Pepcid) 20 mg PO BID [facility] Last Admin: 10/17/16 09:53 Dose: 20 mg Hydroxyzine HCl (Atarax) 25 mg PO Q6 PRN PRN Reason: Agitation Ampicillin 2,000 mg/ Sodium (Chloride) 100 mls @ 100 mls/hr IVPB Q4H [facility] Last Admin: 10/17/16 09:52 Dose: 100 mls/hr Ceftriaxone Sodium 2 gm/ (Sodium Chloride) 100 mls @ 100 mls/hr IVPB Q12H [facility] Last Admin: 10/17/16 04:13 Dose: 100 mls/hr Oxycodone/Acetaminophen (Percocet 5/325 Mg Tab) 1 tab PO Q6H PRN PRN Reason: Pain, moderate (4-7) Stop: 10/17/16 22:13 Last Admin: 10/17/16 06:44 Dose: 1 tab Sertraline HCl (Zoloft) 50 mg PO DAILY [facility] Last Admin: 10/16/16 09:33 Dose: 50 mg Trazodone HCl (Desyrel) 50 mg PO HS [facility] Last Admin: 10/16/16 22:12 Dose: 50 mg - Labs Labs: 10/17/16 07:08 10/17/16 07:08 PT 14.5 SECONDS (9.7-12.2) H 10/15/16 06:39 INR 1.3 10/15/16 06:39 APTT 34 SECONDS (21-34) 10/10/16 08:51 - Constitutional Appears: Well - Neck Exam Neck Exam: absent: Tenderness - Respiratory Exam Respiratory Exam: Clear to Ausculation Bilateral - Cardiovascular Exam Cardiovascular Exam: RRR - GI/Abdominal Exam GI & Abdominal Exam: Soft - Neurological Exam Neurological Exam: Alert, Oriented x3 - Skin Skin Exam: Intact Assessment and Plan (1) Bacteremia Status: Acute (2) Iron deficiency anemia Assessment & Plan: EGD done. Pt is now refusing colonosocpy Status: Acute (3) Weight loss Assessment & Plan: Pt is refusing colonsocopy. I explained risk of cancer. He reports had colonoscopy 2 yrs ago, and does not agree to colonoscopy now. Status: Acute (4) Constipation Status: Acute (5) SBE (subacute bacterial endocarditis) Status: Acute (6) Duodenitis Assessment & Plan: Seen on EGD yest Status: Acute
--- NOTE | 2016-10-17 15:06 | CP.PCM.PN ---
<Tasia Ibarra - Last Filed: 10/17/16 15:01> Subjective - Date & Time of Evaluation Date of Evaluation: 10/17/16 Time of Evaluation: 07:00 - Subjective Subjective: Medicine Progress Note: Patient was seen and examined at bedside in the AM. Patient reports that he did not get good rest last night because his roommate suddenly made noise which caused him to lurch out of bed causing him an extreme amount of back pain. Patient denies chest pain, shortness of breath, difficulty breathing, or palpitations. Patient is aware of pending transfer to [facility]. Objective - Vital Signs/Intake and Output Vital Signs (last 24 hours): Temp Pulse Resp BP Pulse Ox 97.7 F 75 20 122/64 95 10/17/16 07:53 10/17/16 07:53 10/17/16 07:53 10/17/16 07:53 10/17/16 07:53 Intake and Output: 10/17/16 10/17/16 06:59 18:59 Intake Total 300 890 Output Total 1200 650 Balance -900 240 - Medications Medications: Current Medications Docusate Sodium (Colace) 100 mg PO BID [facility] Last Admin: 10/17/16 09:53 Dose: 100 mg Enoxaparin Sodium (Lovenox) 40 mg SC DAILY [facility] Last Admin: 10/17/16 09:53 Dose: 40 mg Famotidine (Pepcid) 20 mg PO BID [facility] Last Admin: 10/17/16 09:53 Dose: 20 mg Hydroxyzine HCl (Atarax) 25 mg PO Q6 PRN PRN Reason: Agitation Ampicillin 2,000 mg/ Sodium (Chloride) 100 mls @ 100 mls/hr IVPB Q4H [facility] Last Admin: 10/17/16 13:36 Dose: 100 mls/hr Ceftriaxone Sodium 2 gm/ (Sodium Chloride) 100 mls @ 100 mls/hr IVPB Q12H [facility] Last Admin: 10/17/16 04:13 Dose: 100 mls/hr Oxycodone/Acetaminophen (Percocet 5/325 Mg Tab) 1 tab PO Q6H PRN PRN Reason: Pain, moderate (4-7) Stop: 10/17/16 22:13 Last Admin: 10/17/16 06:44 Dose: 1 tab Sertraline HCl (Zoloft) 50 mg PO DAILY [facility] Last Admin: 10/17/16 10:41 Dose: 50 mg Trazodone HCl (Desyrel) 50 mg PO HS [facility] Last Admin: 10/16/16 22:12 Dose: 50 mg - Labs Labs: 10/17/16 07:08 10/17/16 07:08 PT 14.5 SECONDS (9.7-12.2) H 10/15/16 06:39 INR 1.3 10/15/16 06:39 APTT 34 SECONDS (21-34) 10/10/16 08:51 - Constitutional Appears: No Acute Distress - Head Exam Head Exam: ATRAUMATIC, NORMAL INSPECTION, NORMOCEPHALIC - Eye Exam Eye Exam: EOMI, Normal appearance, PERRL Pupil Exam: NORMAL ACCOMODATION - ENT Exam ENT Exam: Mucous Membranes Moist - Respiratory Exam Respiratory Exam: Clear to Ausculation Bilateral, NORMAL BREATHING PATTERN - Cardiovascular Exam Cardiovascular Exam: REGULAR RHYTHM, RRR, +S1, +S2 - GI/Abdominal Exam GI & Abdominal Exam: Soft, Normal Bowel Sounds. absent: Tenderness - Extremities Exam Extremities Exam: Normal Inspection. 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 Meier- pt s/p coil embolization of SMA branch with detachable microcoils, 8 mm, 6 mm, and 4 mm on 10/10/16 * Vascular surgery consult (Dr. Farais) - embolization of aneurysm * CT abdomen/pelvis: Interval development of 1.5 x 1.6 cm enhancing focus within the mid abdomen (series 3, image 113) ; surrounding inflammatory changes are noted. This appears to communicate with an arcade branch of the SMA. Finding suspected to reflect mycotic aneurysm. * blood culture (10/10) positive enterococcus faecaelis- vancomycin 1g IV q12h and zosyn 3.375g q8 * Cardiology Consult: Dr. Whitehead --> help appreciated * JASON: Aortic valve endocarditis with severe aortic insufficiency Blood cultures positive * blood cultures (10/10) positive for enterococcus faecalis, sensitive to cipro EMILY 0.5 * Blood Culture (10/14) no growth - preliminary * per Dr. Cerda's note f/u with ampi + gentamicin synergy Back pain * F/U MRI to rule out abscess * Patient refused 2x to have MRI done due to severe back pain Tachycardia * EKG: sinus tachycardia, otherwise unremarkable Weight loss * GI consult, Dr. Garrett --> help appreciated * R/O upper GI malignancy, colonoscopy normal 2 years ago * per GI patient will not need colonoscopy during this admission * CT does not show pancreas malignancy * EGD: Esophagus was normal; a few diffuse erosions without bleeding were found in the duodenal bulb. * f/u with biopsies Depression * psychiatry consult- Dr. Galvez, help appreciated Constipation * Colace 100 BID Prophylaxis * SCDs * lovenox 40mg sc daily * Pepcid 20mg PO BID * PT Disposition: To transfer patient to [facility] for AVR Case discussed with Dr. Ranjana Ibarra PGY-1 <Samy Chilel - Last Filed: 10/17/16 17:19> Objective - Vital Signs/Intake and Output Vital Signs (last 24 hours): Temp Pulse Resp BP Pulse Ox 97.7 F 75 20 122/64 95 10/17/16 07:53 10/17/16 07:53 10/17/16 07:53 10/17/16 07:53 10/17/16 07:53 Intake and Output: 10/17/16 10/17/16 06:59 18:59 Intake Total 300 890 Output Total 1200 650 Balance -900 240 - Medications Medications: Current Medications Docusate Sodium (Colace) 100 mg PO BID [facility] Last Admin: 10/17/16 09:53 Dose: 100 mg Enoxaparin Sodium (Lovenox) 40 mg SC DAILY [facility] Last Admin: 10/17/16 09:53 Dose: 40 mg Famotidine (Pepcid) 20 mg PO BID [facility] Last Admin: 10/17/16 09:53 Dose: 20 mg Hydroxyzine HCl (Atarax) 25 mg PO Q6 PRN PRN Reason: Agitation Ampicillin 2,000 mg/ Sodium (Chloride) 100 mls @ 100 mls/hr IVPB Q4H [facility] Last Admin: 10/17/16 13:36 Dose: 100 mls/hr Ceftriaxone Sodium 2 gm/ (Sodium Chloride) 100 mls @ 100 mls/hr IVPB Q12H [facility] Last Admin: 10/17/16 04:13 Dose: 100 mls/hr Oxycodone/Acetaminophen (Percocet 5/325 Mg Tab) 1 tab PO Q6H PRN PRN Reason: Pain, moderate (4-7) Stop: 10/17/16 22:13 Last Admin: 10/17/16 06:44 Dose: 1 tab Sertraline HCl (Zoloft) 50 mg PO DAILY [facility] Last Admin: 10/17/16 10:41 Dose: 50 mg Trazodone HCl (Desyrel) 50 mg PO HS [facility] Last Admin: 10/16/16 22:12 Dose: 50 mg - Labs Labs: 10/17/16 07:08 10/17/16 07:08 PT 14.5 SECONDS (9.7-12.2) H 10/15/16 06:39 INR 1.3 10/15/16 06:39 APTT 34 SECONDS (21-34) 10/10/16 08:51 Attending/Attestation - Attestation I have personally seen and examined this patient.: Yes I have fully participated in the care of the patient.: Yes I have reviewed all pertinent clinical information, including history, physical exam and plan: Yes Notes (Text): Medical attending: Patient was seen and examined by me, agrees the above note by medical administrator. The patient reported that he was doing okay, however he was extremely upset with the other patient in the room overnight due to sound problems and it was too loud. As documented before he continues to be on IV antibiotics at this time. He is aware that he's pending transfer over to another facility due to concerns of the aortic endocarditis. It was found on the JASON that he had. He also completed an EGD as well just yesterday. He reports that he is eating okay, bathroom is okay as well time. He also denied fevers Thank you very much, Samy Chilel
[2016-10-17 17:56] VITALS: BP 135/60
--- NOTE | 2016-10-18 17:45 | CP.PCM.DIS ---
Provider - Provider Date of Admission: 10/10/16 13:40 Attending physician: Samy Chilel DO Consults: Dr Whitehead ~ Cardiology Dr Horn ~ GI Dr Garrett ~ GI Dr Cerda ~ ID Time Spent in preparation of Discharge (in minutes): 29 Hospital Course - Lab Results Lab Results: Micro Results 10/14/16 07:45 Blood-Venous Blood Culture - Preliminary NO GROWTH AFTER 4 DAYS 10/14/16 07:15 Blood-Venous Blood Culture - Preliminary NO GROWTH AFTER 4 DAYS 10/11/16 23:33 Nose MRSA Culture - Final MRSA NOT DETECTED 10/10/16 16:17 Naris MRSA Culture (Admit) - Final MRSA NOT DETECTED Most Recent Lab Values WBC 9.7 K/uL (4.8-10.8) 10/17/16 07:08 RBC 3.81 Mil/uL (4.40-5.90) L 10/17/16 07:08 Hgb 10.0 g/dL (12.0-18.0) L 10/17/16 07:08 Hct 30.2 % (35.0-51.0) L 10/17/16 07:08 MCV 79.4 fL (80.0-94.0) L 10/17/16 07:08 MCH 26.3 pg (27.0-31.0) L 10/17/16 07:08 MCHC 33.1 g/dL (33.0-37.0) 10/17/16 07:08 RDW 15.5 % (11.5-14.5) H 10/17/16 07:08 Plt Count 451 K/uL (130-400) H 10/17/16 07:08 MPV 8.4 fL (7.2-11.7) 10/17/16 07:08 Neut % (Auto) 66.8 % (50.0-75.0) 10/17/16 07:08 Lymph % (Auto) 19.9 % (20.0-40.0) L 10/17/16 07:08 [place] % (Auto) 9.4 % (0.0-10.0) 10/17/16 07:08 Eos % (Auto) 3.4 % (0.0-4.0) 10/17/16 07:08 Baso % (Auto) 0.5 % (0.0-2.0) 10/17/16 07:08 Neut # 6.5 K/uL (1.8-7.0) 10/17/16 07:08 Lymph # 1.9 K/uL (1.0-4.3) 10/17/16 07:08 [place] # 0.9 K/uL (0.0-0.8) H 10/17/16 07:08 Eos # 0.3 K/uL (0.0-0.7) 10/17/16 07:08 Baso # 0.1 K/uL (0.0-0.2) 10/17/16 07:08 Neutrophils % (Manual) 86 % (50-75) H 10/10/16 08:51 Band Neutrophils % 1 % (0-2) 10/10/16 08:51 Lymphocytes % (Manual) 10 % (20-40) L 10/10/16 08:51 Monocytes % (Manual) 3 % (0-10) 10/10/16 08:51 Platelet Estimate Normal (NORMAL) 10/10/16 08:51 Ovalocytes Slight 10/10/16 08:51 ESR 110 mm/hr (0-15) H 10/12/16 06:59 PT 14.5 SECONDS (9.7-12.2) H 10/15/16 06:39 INR 1.3 10/15/16 06:39 APTT 34 SECONDS (21-34) 10/10/16 08:51 pO2 35 mm/Hg (30-55) 10/10/16 08:58 VBG pH 7.48 (7.32-7.43) H 10/10/16 08:58 VBG pCO2 30 mmHg (40-60) L 10/10/16 08:58 VBG HCO3 24.0 mmol/L 10/10/16 08:58 VBG Total CO2 23.2 mmol/L (22-28) 10/10/16 08:58 VBG O2 Sat (Calc) 78.2 % (40-65) H 10/10/16 08:58 VBG Base Excess -0.3 mmol/L (0.0-2.0) L 10/10/16 08:58 VBG Potassium 3.6 mmol/L (3.6-5.2) 10/10/16 08:58 Sodium 141.0 mmol/l (132-148) 10/10/16 08:58 Chloride 109.0 mmol/L (98-107) H 10/10/16 08:58 Glucose 99 mg/dl (75-110) 10/10/16 08:58 Lactate 1.5 mmol/L (0.7-2.1) 10/10/16 08:58 Sodium 138 mmol/L (132-148) 10/17/16 07:08 Potassium 4.0 mmol/L (3.6-5.2) 10/17/16 07:08 Chloride 106 mmol/L (98-107) 10/17/16 07:08 Carbon Dioxide 25 mmol/L (22-30) 10/17/16 07:08 Anion Gap 11 (10-20) 10/17/16 07:08 BUN 10 mg/dL (9-20) 10/17/16 07:08 Creatinine 0.9 MG/DL (0.8-1.5) 10/17/16 07:08 Est GFR ( Amer) > 60 10/17/16 07:08 Est GFR (Non-Af Amer) > 60 10/17/16 07:08 POC Glucose (mg/dL) 113 mg/dL (65-110) H 10/10/16 08:07 Random Glucose 96 mg/dL (75-110) 10/17/16 07:08 Calcium 8.6 mg/dl (8.6-10.4) 10/17/16 07:08 Phosphorus 2.9 mg/dL (2.5-4.5) 10/17/16 07:08 Magnesium 2.2 mg/dL (1.6-2.3) 10/17/16 07:08 % Saturation 5 (20-55) L 10/11/16 05:36 Ferritin 468.0 ng/mL 10/11/16 05:36 Total Bilirubin 0.6 mg/dL (0.2-1.3) 10/17/16 07:08 AST 40 U/L (17-59) 10/17/16 07:08 ALT 49 U/L (21-72) 10/17/16 07:08 Alkaline Phosphatase 57 U/L (38-126) 10/17/16 07:08 Total Creatine Kinase 26 U/L (55-170) L 10/15/16 16:39 CK-MB (Mass) 0.43 ng/mL (0.0-3.38) 10/15/16 16:39 Troponin I 0.0170 ng/mL (0.00-0.120) 10/10/16 08:51 Troponin I, Quant < 0.0120 ng/mL (0.00-0.120) 10/15/16 16:39 C-React Prot High Sens > 15.00 mg/L (1.00-3.00) H 10/12/16 06:59 Total Protein 7.4 g/dL (6.3-8.3) 10/17/16 07:08 Albumin 3.2 g/dL (3.5-5.0) L 10/17/16 07:08 Globulin 4.1 gm/dL (2.2-3.9) H 10/17/16 07:08 Albumin/Globulin Ratio 0.8 (1.0-2.1) L 10/17/16 07:08 Lipase 42 U/L (23-300) 10/10/16 08:51 Vitamin B12 > 1000 pg/mL (239-931) H 10/11/16 05:36 25-OH Vitamin D Total 38.5 NG/ML (30.0-100.0) 10/11/16 05:36 Procalcitonin 0.43 NG/ML (0.19-0.49) 10/12/16 06:59 TSH 3rd Generation 1.71 mIU/L (0.46-4.68) 10/11/16 05:36 Venous Blood Potassium 3.6 mmol/L (3.6-5.2) 10/10/16 08:58 Urine Color Kor[place] (YELLOW) 10/10/16 09:26 Urine Clarity Clear (Clear) 10/10/16 09:26 Urine pH 5.0 (5.0-8.0) 10/10/16 09:26 Ur Specific [place] 1.033 (1.003-1.030) H 10/10/16 09:26 Urine Protein 1+ mg/dL (NEGATIVE) H 10/10/16 09:26 Urine Glucose (UA) Normal mg/dL (Normal) 10/10/16 09:26 Urine Ketones Trace mg/dL (NEGATIVE) 10/10/16 09:26 Urine Blood Negative (NEGATIVE) 10/10/16 09:26 Urine Nitrate Negative (NEGATIVE) 10/10/16 09:26 Urine Bilirubin Negative (NEGATIVE) 10/10/16 09:26 Urine Urobilinogen 2.0 mg/dL (0.2-1.0) 10/10/16 09:26 Ur Leukocyte Esterase Neg Nini/uL (Negative) 10/10/16 09:26 Urine WBC (Auto) 1 /hpf (0-5) 10/10/16 09:26 Urine RBC (Auto) 6 /hpf (0-3) H 10/10/16 09:26 Ur Squamous Epith Cells < 1 /hpf (0-5) 10/10/16 09:26 Urine Bacteria Rare (<OCC) 10/10/16 09:26 Vancomycin Trough 10.9 ug/mL (5.0-10.0) H 10/14/16 04:08 HIV 1&2 Antibody Screen Negative (NEGATIVE) 10/11/16 05:36 - Hospital Course Hospital Course: This is a 66-year-old male who initially came to the hospital on 10/10. Abdominal and low back pain. He was ultimately found to have positive blood cultures for enterococcus. He required IV antibiotics and was on a 10/15/2016 JASON determined to have a very large aortic vegetation. He was ultimately transferred over to [facility] for potential aortic valve replacement. 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 He had a coil embolization of the SMA done. He has required to have continuous IV antibiotics due to the positive blood cultures. On 10/16/2016 he had an EGD done which showed doudenitis There are also an attempt to get MRI of the lumbar spine, however the patient reported that he did not feel comfortable with this and ultimately he declined to get the MRI of the lumbar spine Discharge Exam - Head Exam Head Exam: ATRAUMATIC, NORMAL INSPECTION, NORMOCEPHALIC - Eye Exam Eye Exam: EOMI, Normal appearance - ENT Exam ENT Exam: Mucous Membranes Moist - Respiratory Exam Respiratory Exam: NORMAL BREATHING PATTERN, UNREMARKABLE - Cardiovascular Exam Cardiovascular Exam: REGULAR RHYTHM. absent: Systolic Murmur Additional comments: Despite the echo findings, the patient currently does not have any auscultated murmurs. - GI/Abdominal Exam GI & Abdominal Exam: absent: Distended, Firm, Guarding - Neurological Exam Neurological exam: Alert, Oriented x3 - Psychiatric Exam Psychiatric exam: Depressed, Flat Affect - Skin Skin Exam: Pallor, Pallor Discharge Plan - Follow Up Plan Condition: FAIR Disposition: Trans to Other Acute Care Hosp Instructions: Sepsis (DC), Sepsis (GEN) Additional Instructions: Patient has been accepted at [facility] and a bed has been confirmed. Please discharge patient to [facility] as planned for aortic valve replacement. Patient should resume all medications as instructed.
--- NOTE | 2016-10-20 08:02 | CARD ---
APPROVED REPORT EXAM: Transesophageal echocardiogram with color flow Doppler. INDICATION Dizziness and Vertigo MYCOTIC ANEURSYM Mitral Valve E/A ratio0.0 TDI E/Lateral E'0.0E/Medial E'0.0 Reason For Test : Rule out endocarditis. PROCEDURE After obtaining informed consent, patient underwent transesophageal echo in the [facility]. Type of Sedation : Conscious Sedation Sedation was provided by anesthesiologist. Sedation was achieved with intravenously. The JASON was performed complications. Throughout the procedure, the blood pressure, pulse oximetry, cardiac rhythm, and rate were monitored. The patient tolerated the procedure without adverse effects. Recovery from conscious sedation was uneventful and vital signs were stable. LEFT VENTRICLE The left ventricle is normal size. Left ventricle systolic function is normal. The Ejection Fraction is 60-65%. There is normal LV segmental wall motion. No left ventricle thrombus noted on this study. There is no ventricular septal defect visualized. RIGHT VENTRICLE The right ventricle is normal size. The right ventricular systolic function is normal. ATRIA The left atrium is mildly dilated. The right atrium is mildly dilated. The interatrial septum is intact with no evidence for an atrial septal defect. AORTIC VALVE Aortic valve trileaflet. There is 0.8 x 1.2 mm vegetation noted on Non Coronary cusp There is severe aortic regurgitation. There is no aortic valvular stenosis. MITRAL VALVE The mitral valve is normal in structure. There is no evidence of mitral valve prolapse. There is no mitral valve stenosis. Mitral regurgitation is mild to moderate. TRICUSPID VALVE The tricuspid valve is normal in structure. There is mild tricuspid regurgitation. There is no tricuspid valve prolapse or vegetation. There is no tricuspid valve stenosis. PULMONIC VALVE The pulmonary valve is normal in structure. GREAT VESSELS The aortic root is normal in size. <Conclusion> Left ventricle systolic function is normal. The Ejection Fraction is 60-65%. The right ventricular systolic function is normal. Aortic valve trileaflet. There is 0.8 x 1.2 mm vegetation noted on Non Coronary cusp There is severe aortic regurgitation.
== END 2016-10-17 23:28 | disposition short-term general hospital (02) | DRG 269 ==
LOC: C.ER 07:59 → C.9E 13:40 → C.3T 14:38 → C.9I 16:08 → C.3T 10-11 22:48
PROVIDERS: ADMIT Hospitalist; ATTEND Hospitalist
PROC: 04L03DZ Occlusion of Abdominal Aorta with Intraluminal Device, Percutaneous Approach (ICD-10-PCS; principal; 2016-10-10)
PROC: B24BZZ4 Ultrasonography of Heart with Aorta, Transesophageal (ICD-10-PCS; 2016-10-15)
PROC: GZ58ZZZ Individual Psychotherapy, Cognitive-Behavioral (ICD-10-PCS; 2016-10-15)
PROC: GZ56ZZZ Individual Psychotherapy, Supportive (ICD-10-PCS; 2016-10-15)
DX: I71.4 Abdominal aortic aneurysm, without rupture (principal); B49 Unspecified mycosis; R78.81 Bacteremia; K57.92 Diverticulitis of intestine, part unspecified, without perforation or abscess without bleeding; F33.1 Major depressive disorder, recurrent, moderate; D50.9 Iron deficiency anemia, unspecified; R63.4 Abnormal weight loss; R19.4 Change in bowel habit; G89.29 Other chronic pain; M54.9 Dorsalgia, unspecified; I35.8 Other nonrheumatic aortic valve disorders; I10 Essential (primary) hypertension; M54.5 Low back pain; R00.0 Tachycardia, unspecified; K59.00 Constipation, unspecified; R42 Dizziness and giddiness